=== PATIENT | male | born 1935 | race Caucasian/White ===

== ENCOUNTER 2019-10-23 00:09 | Inpatient (IN) | payer OTHER, SELFPAY ==
[2019-10-23] VITALS (12 sets, daily range): BP systolic 119–193; BP diastolic 57–94; PULSE 74–89; RESP 18–25; TEMP 36.6–36.9; O2SAT 80–97; BMI 38.5
--- NOTE | ~2019-10-23 | US_ITS ---
EXAMINATION: US right upper quadrant DATE: 10/23/2019 09:26 INDICATION: Epigastric abdominal pain. TECHNIQUE: Multiple grayscale and Doppler ultrasound images of the abdomen were obtained. COMPARISON: CT abdomen and pelvis 10/23/2019 FINDINGS: The pancreas is obscured by bowel gas. There is diffuse hepatic steatosis. There is normal flow in main portal vein. The gallbladder is distended and contains sludge. No definite shadowing to suggest gallstones. Gallbladder wall thickening is noted. There was no sonographic Corcoran sign. The c ommon duct is normal and measures 6 mm. IMPRESSION: 1. Gallbladder distention with sludge and gallbladder wall thickening. No definite gallstones or sono graphic Corcoran sign. These findings are indeterminate for acute cholecystitis. Consider hepatobiliary scintigraphy. 2. Diffuse hepatic steatosis. Reviewed, dictated and finalized at location A. IMPRESSION: 1. Gallbladder distention with sludge and gallbladder wall thickening. No defin ite gallstones or sonographic Corcoran sign. These findings are indeterminate for acute cholecystitis. Consider hepatobiliary scintigraphy. 2. Diffuse hepatic steatosis.
--- NOTE | ~2019-10-23 | XR_ITS ---
EXAMINATION: XR chest 1V portable DATE: 11/03/2019 06:06 INDICATION: Acute hypercapnic respiratory failure. TECHNIQUE: A single frontal view of the chest was obtained. COMPARISON: Chest single view 11/02/2019, chest CT 11/01/2019 FINDINGS: There are airspace opacities in the lower lung zones. There is a small right pleural effusi on. No pneumothorax. The heart size is normal. The endotracheal tube tip is 5.6 cm above the yasmani. The nasogastric tube tip is beyond the inferior margin of the radiograph, but at least to the stomach . A right internal jugular central venous catheter is seen with tip in the superior vena cava. A left internal jugular central venous catheter is seen with tip in the superior vena cava. IMPRESSION: 1. Airspace opacities in the lower lung zones with worsening on the right, consistent with atelectasi s versus pneumonia. 2. Stable small right pleural effusion. Reviewed, dictated and finalized at location A. IMPRESSION: 1. Airspace opacities in the lower lung zones with worsening on the right, cons istent with atelectasis versus pneumonia. 2. Stable small right pleural effusion.
--- NOTE | ~2019-10-23 | XR_ITS ---
EXAMINATION: XR chest 1V portable DATE: 10/27/2019 10:54 INDICATION: Shortness of breath TECHNIQUE: frontal view of the chest was obtained. COMPARISON: Chest radiograph dated 10/25/[address] dated 10/23/2019 FINDINGS: Small lung volumes with unchanged mild opacities in the bilateral lower lung zones and favor atelecta sis over pneumonia. No pleural effusion or pneumothorax. Heart size is normal with prominent paracard ial fat pads. Mediastinal lipomatosis. Severe left glenohumeral osteoarthritis. IMPRESSION: 1. Small lung volumes with unchanged bibasilar atelectasis. Reviewed, dictated and finalized at location A.
--- NOTE | ~2019-10-23 | XR_ITS ---
XR chest 1V portable 10/28/2019 11:17 Indication: Increased labrum breathing Procedure: AP portable chest Comparison: Comparison to multiple prior studies sequentially, with oldest reviewed study dated 10/2018. Findings: Patchy bilateral infiltrates. Borderline heart size. No pleural effusion or pneumothorax. N o acute osseous abnormality. Impression: 1: Patchy bilateral infiltrates, suspicious for pneumonia. Reviewed, dictated and finalized at location B. Impression: 1: Patchy bilateral infiltrates, suspicious for pneumonia.
--- NOTE | ~2019-10-23 | XR_ITS ---
EXAMINATION: XR chest 1V portable DATE: 11/02/2019 06:13 INDICATION: Acute hypercapnic respiratory failure. TECHNIQUE: A single frontal view of the chest was obtained. COMPARISON: Chest single view 11/01/2019, chest CT 11/01/2019 FINDINGS: There are airspace opacities in the paramediastinal upper lobes and in the lower lung zones . No pleural effusion or pneumothorax. The heart size is normal. There is a prominent left paracardia l fat pad. The endotracheal tube tip is 4.1 cm above the yasmani. A right internal jugular central sammie ous catheter is seen with tip in the superior vena cava. A left internal jugular central venous tena ter is seen with tip in the superior vena cava. The nasogastric tube tip is beyond the inferior lyly n of the radiograph, but at least to the stomach. IMPRESSION: 1. Stable airspace opacities in the paramediastinal upper lobes and in the lower lung zones, likely a telectasis. Reviewed, dictated and finalized at location A. IMPRESSION: 1. Stable airspace opacities in the paramediastinal upper lobes and in the lowe r lung zones, likely atelectasis.
--- NOTE | ~2019-10-23 | NM_ITS ---
EXAMINATION: NM hepatobiliary wo pharm DATE: 10/24/2019 14:37 INDICATION: Right upper quadrant abdominal pain. Indeterminate gallbladder ultrasound. COMPARISON: Ultrasound and CT studies dated 10/23/2019 TECHNIQUE: 4.8 mCi Tc-99m mebrofenin (Choletec) was administered intravenously. Scintigraphic images of the abdomen were obtained for one hour. At the 1 hour time point 2 mg of morphine was injected IV and imaging continued for an additional 30 minutes. FINDINGS: There is normal clearance of radiotracer from the blood pool. There is homogeneous tracer u ptake by the liver. Activity progresses to the small bowel within 30 minutes. There is progressive a ccumulation of activity extending through multiple loops of small bowel 30 minutes following morphine administration with no evident activity within the region of the gallbladder fossa where there is a photopenic defect appears to correspond in size and location to the gallbladder on prior CT. IMPRESSION: 1. No evident activity in the gallbladder through 90 minutes of observation, including 30 minutes fo llowing morphine administration which would be consistent with acute cholecystitis. Reviewed, dictated and finalized at location A. IMPRESSION: 1. No evident activity in the gallbladder through 90 minutes of observation, i ncluding 30 minutes following morphine administration which would be consistent with acute cholecystitis.
--- NOTE | ~2019-10-23 | XR_ITS ---
EXAMINATION: XR pelvis 1-2V INDICATION: Right femoral dialysis catheter insertion TECHNIQUE: AP view the pelvis is obtained. COMPARISON: CT, 10/23/2019 FINDINGS: Sensitivity is limited by patient's body habitus. A right femoral dialysis catheter project s in expected location. The soft tissues are unremarkable. Lumbar spondylosis is noted. IMPRESSION: 1. Right femoral dialysis catheter projecting in expected position. Reviewed, dictated and finalized at location A.
--- NOTE | ~2019-10-23 | XR_ITS ---
EXAMINATION: XR chest port-a-cath/central INDICATION: Dialysis catheter insertion TECHNIQUE: Portable AP chest at 1639 hours COMPARISON: 1229 hours FINDINGS: The endotracheal tube ends approximately 1.9 cm above the yasmani. The nasogastric tube is f ollowed as far as the stomach. Its tip is beyond the inferior margin of the radiograph. A right inter nal jugular central venous catheter ends with its tip in the superior vena cava. There has been inter sarah insertion of a left internal jugular dialysis catheter which ends with its tip in the proximal marino perior vena cava. There is no pneumothorax. Small pleural effusions are present. There is new airspac e opacity in the left lung base and right perihilar region. The heart size is normal. IMPRESSION: 1. Left internal jugular dialysis catheter insertion ending with its tip in the proximal superior sammie a cava. No pneumothorax. 2. New left basilar and right perihilar airspace opacities, likely atelectasis. 3. Small pleural effusions. Reviewed, dictated and finalized at location A. IMPRESSION: 1. Left internal jugular dialysis catheter insertion ending with its tip in the proximal superior vena cava. No pneumothorax. 2. New left basilar and right perihilar airspace opacities, likely atelectasis. 3. Small pleural effusions.
--- NOTE | ~2019-10-23 | CT_ITS ---
EXAMINATION: CT abdomen pelvis w con DATE: 10/23/2019 01:11 INDICATION: Epigastric abdominal pain. Nausea. TECHNIQUE: Computed tomography (CT) of the abdomen and pelvis was performed with 100 mL Omnipaque 350 intravenous contrast. Automated exposure control and iterative reconstruction technique were employe d. The dose-length product was 1667.51 mGy-cm. COMPARISON: Chest CT 06/17/2015 FINDINGS: The visualized portions of the lung bases demonstrate mild atelectasis. No pleural effusion . The heart size is normal. There are coronary artery calcifications. No pericardial effusion. There is an 11 mm cyst in the liver. The gallbladder is distended. The spleen is normal. There is a 12 mm c ystic lesion in the body of the pancreas, likely benign. The adrenal glands and kidneys are normal. T here is an umbilical hernia containing fat. There are bilateral inguinal hernias containing fat. Ther e is diverticulosis of the colon without evidence of diverticulitis. There are no dilated loops of niko wel. The appendix is normal. There are no pathologically enlarged lymph nodes. There is no free intra peritoneal fluid. There is moderate lumbar spondylosis. IMPRESSION: 1. Gallbladder distention, which may be secondary to fasting. Correlate with physical exam to exclude acute cholecystitis. 2. Umbilical hernia and bilateral inguinal hernias containing fat. Reviewed, dictated and finalized at location A. IMPRESSION: 1. Gallbladder distention, which may be secondary to fasting. Correlate with ph ysical exam to exclude acute cholecystitis. 2. Umbilical hernia and bilateral inguinal hernias containing fat.
--- NOTE | ~2019-10-23 | US_ITS ---
EXAMINATION: US renal BI DATE: 10/26/2019 17:00 INDICATION: Acute kidney injury. TECHNIQUE: Multiple ultrasound grayscale images of the kidneys were obtained. COMPARISON: CT abdomen and pelvis 10/23/2019 FINDINGS: The right kidney measures 11.7 x 4.2 x 5.5 cm. The left kidney measures 11.6 x 4.5 x 6.4 cm. The kidn eys demonstrate normal parenchymal echogenicity. There is no hydronephrosis. The bladder is is decomp ressed by a Mello catheter. IMPRESSION: 1. Normal kidney sizes. No hydronephrosis. Reviewed, dictated and finalized at location A.
--- NOTE | ~2019-10-23 | XR_ITS ---
EXAMINATION: XR chest 1V portable DATE: 10/25/2019 15:54 INDICATION: Hypoxia. TECHNIQUE: A single frontal view of the chest was obtained. COMPARISON: Chest 2 views 10/23/2019, chest CT 10/23/2019 FINDINGS: There is mild atelectasis in the lower lung zones. No pleural effusion or pneumothorax. The heart size is normal. There are prominent paracardial fat pads. IMPRESSION: 1. Mild atelectasis in the lower lung zones. Reviewed, dictated and finalized at location A.
--- NOTE | ~2019-10-23 | XR_ITS ---
EXAMINATION: XR chest ET placement DATE: 10/31/2019 00:35 INDICATION: Intubation. Central line placement. TECHNIQUE: A single frontal view of the chest was obtained. COMPARISON: Chest single view 10/30/2019, chest CT 10/23/2019 FINDINGS: There are mild airspace opacities in right mid and lower lung zones and left lower lung zon e. No pleural effusion or pneumothorax. The heart size is normal. The endotracheal tube tip is 1.7 cm above the yasmani. A right internal jugular central venous catheter is seen with tip in the superior vena cava. The nasogastric tube tip is beyond the inferior margin of the radiograph, but at least to the stomach. IMPRESSION: 1. Mild airspace opacities in right mid and lower lung zones and left lower lung zone, consistent wit h atelectasis versus pneumonia. Reviewed, dictated and finalized at location A. IMPRESSION: 1. Mild airspace opacities in right mid and lower lung zones and left lower delgado g zone, consistent with atelectasis versus pneumonia.
--- NOTE | ~2019-10-23 | US_ITS ---
EXAMINATION:US venous doppler LE BI INDICATION:Lower extremity swelling. TECHNIQUE: Multiple grayscale, color flow and Doppler images of the bilateral lower extremity deep ve nous systems were obtained and reviewed. COMPARISON:07/01/2008 FINDINGS: The common femoral, superficial femoral and popliteal veins demonstrate normal respiratory variation, augmentation and compressibility. Color flow is also seen within the posterior tibial, pe roneal, greater saphenous and profunda veins. IMPRESSION: 1: No lower extremity deep venous thrombosis. Reviewed, dictated and finalized at location A.
--- NOTE | ~2019-10-23 | XR_ITS ---
XR chest 1V portable DATE: 11/05/2019 06:14 INDICATION: Acute hypercapnic respiratory failure TECHNIQUE: Portable AP chest on 11/05/2019 at 0540 hours COMPARISON: 11/04/2019 portable AP chest at 0527 hours FINDINGS: ET tube is approximately 5 cm above yasmani in satisfactory position. Washburn range is 2-5 cm. There is a nasogastric tube in the stomach. Dual lumen left internal jugular central venous catheter overlies superior vena cava. Right internal jugular central venous catheter overlies superior vena cava. No evidence of pneumothorax. There are bilateral lower lung infiltrates and/atelectasis, greater on the left, stable since 11/04/19 20. Heart size appears within normal range. There is aortic arch calcification. Diffuse osteopenia. Osteoarthritic change is noted at the left glenoid humeral joint. There is degene rative spurring of the thoracic spine. IMPRESSION: Bilateral lower lung infiltrate and/atelectasis, left greater than right, stable since Bilateral internal jugular central venous catheters in the superior vena cava ET and NG tubes in satisfactory position Reviewed, dictated and finalized at location A. IMPRESSION: Bilateral lower lung infiltrate and/atelectasis, left greater than right, stable since 11/04/2019 Bilateral internal jugular central venous catheters in the superior vena cava ET and NG tubes in satisfactory position
--- NOTE | ~2019-10-23 | XR_ITS ---
EXAMINATION: XR chest 1V portable DATE: 11/01/2019 06:18 INDICATION: Acute hypercapnic respiratory failure. TECHNIQUE: A single frontal view of the chest was obtained. COMPARISON: Chest single view 10/31/2019, 10/23/2019 FINDINGS: The patient is rotated to his left. Lung volumes are small. There are airspace opacities in the perihilar regions and at left lung base. No pleural effusion or pneumothorax. The heart size is normal. There is a prominent left paracardial fat pad. The endotracheal tube tip is 7 mm above the ca doreen. The nasogastric tube tip is in the stomach. A left internal jugular central venous catheter is seen with tip in the superior vena cava. A right internal jugular central venous catheter is seen wit h tip in the superior vena cava. IMPRESSION: 1. Small lung volumes with airspace opacities in the perihilar regions and at left lung base with wor sening on the left, consistent with atelectasis versus pneumonia. 2. Endotracheal tube tip 7 mm above the yasmani. Retraction 2 cm is recommended. Reviewed, dictated and finalized at location A. IMPRESSION: 1. Small lung volumes with airspace opacities in the perihilar regions and at l eft lung base with worsening on the left, consistent with atelectasis versus pn eumonia. 2. Endotracheal tube tip 7 mm above the yasmani. Retraction 2 cm is recommended.
--- NOTE | ~2019-10-23 | XR_ITS ---
EXAMINATION: XR chest 2V DATE: 10/23/2019 00:55 INDICATION: Midsternal chest pain. Shortness of breath on exertion. TECHNIQUE: Frontal and lateral views of the chest were obtained. COMPARISON: Chest single view 01/17/2019, CT abdomen and pelvis 10/23/2019 FINDINGS: There is mild atelectasis in left lower lung zone. No pleural effusion or pneumothorax. The heart size is normal. IMPRESSION: 1. Mild atelectasis in left lower lung zone. Reviewed, dictated and finalized at location A.
--- NOTE | ~2019-10-23 | XR_ITS ---
XR chest port-a-cath/central DATE: 11/05/2019 13:08 INDICATION: Dialysis access right internal jugular vein. Acute hypercapnic respiratory failure TECHNIQUE: Portable AP chest on 11/05/2019 at 1302 hours COMPARISON: 11/05/2019 portable AP chest at 0540 hours FINDINGS: There is a dual lumen right internal jugular central venous catheter, the catheter tip over lying the right brachiocephalic vein. No right pneumothorax is evident. Left internal jugular dual-lumen catheter tip overlying the superior vena cava. No left pneumothorax is evident. There are bibasilar infiltrates and/atelectasis, left greater than right. Heart size appears within normal range. No pulmonary vascular congestion is evident. Osteoarthritic changes at the glenohumeral joints, particularly severe on the left. Diffuse osteopenia. IMPRESSION: Bilateral internal jugular central venous catheters, the right catheter tip overlying the right brachiocephalic vein, the left catheter tip overlying the superior vena cava ET and NG tubes appear in satisfactory position Bibasilar infiltrate and/atelectasis, left greater than right Reviewed, dictated and finalized at Location A. Reviewed, dictated and finalized at location A. IMPRESSION: Bilateral internal jugular central venous catheters, the right cath eter tip overlying the right brachiocephalic vein, the left catheter tip overly ing the superior vena cava ET and NG tubes appear in satisfactory position Bibasilar infiltrate and/atelectasis, left greater than right
--- NOTE | ~2019-10-23 | XR_ITS ---
EXAMINATION: XR chest 1V portable EXAM DATE: 11/06/2019 23:38 INDICATION: Injury getting oxygen demands. TECHNIQUE: Portable AP frontal chest x-ray was obtained. Comparison is made to prior examination from 11/05/2019. FINDINGS: Endotracheal tube tip is about 5 centimeters above the yasmani (ideal range is between 2 to 5 cm). There is a right IJ venous line. There is a nasogastric tube seen with tip collimated off the study, but below the left hemidiaphragm. There is patchy left perihilar, right infrahilar airspace disease which is nonspecific, atelectasis a nd/or pneumonia. There are no sizable pleural effusions. There is no pneumothorax suspected. Car diomediastinal silhouette is normal. 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 Compared to prior study, mild progression in the airspace disease is suspected. IMPRESSION: 1. Line(s) and tube(s) in position. 2. Moderate patchy left perihilar, mild right infrahilar atelectasis and/or pneumonia. Reviewed, dictated and finalized at location A. IMPRESSION: 1. Line(s) and tube(s) in position. 2. Moderate patchy left perihilar, mild right infrahilar atelectasis and/or pn eumonia.
--- NOTE | ~2019-10-23 | XR_ITS ---
EXAMINATION: XR abdomen NG/feed tube insert DATE: 10/31/2019 00:35 INDICATION: Nasogastric tube placement. TECHNIQUE: A supine view of the abdomen was obtained. COMPARISON: CT abdomen and pelvis 10/23/2019 FINDINGS: The lower abdomen and right lateral aspect of the abdomen are excluded. There are surgical clips in right upper quadrant. The nasogastric tube tip is in the stomach. The proximal side port is in the distal esophagus. IMPRESSION: 1. Nasogastric tube tip in the stomach with proximal side port in the distal esophagus. Advancement 7 cm is recommended. Reviewed, dictated and finalized at location A. IMPRESSION: 1. Nasogastric tube tip in the stomach with proximal side port in the distal es ophagus. Advancement 7 cm is recommended.
--- NOTE | ~2019-10-23 | US_ITS ---
EXAMINATION: US venous doppler UE EXAM DATE: 11/03/2019 09:19 INDICATION: Arm swelling. TECHNIQUE: Multiple grayscale, color flow, Doppler sonographic images of the left upper extremity vei ns obtained by technologist. Compression was performed where able. There is no prior study for helena hendricks. FINDINGS: Some limitations in evaluating neck from bandage overlying patient's port. Left upper extremity: Jugular vein: ------------> Normal. Subclavian vein: --------> Normal. Axillary vein:------------> Normal. Brachial vein:-----------> Normal. Basilic vein: ------------> Normal. Cephalic vein: ----------> Normal. Radial vein: ------------> Normal. Ulnar vein: > Normal. IMPRESSION: No deep venous thrombosis of the left upper extremity. Reviewed, dictated and finalized at location A.
--- NOTE | ~2019-10-23 | CT_ITS ---
EXAMINATION: CTA chest PE protocol DATE: 10/23/2019 09:11 INDICATION: Chest pain. TECHNIQUE: Computed tomography angiography (CTA) of the chest was performed with 100 mL Omnipaque-350 intravenous contrast timed to evaluate the pulmonary arteries. Coronal maximum intensity projection 3D-reconstructions were created by the technologist. Automated exposure control and iterative reconst ruction technique were employed. The dose-length product was 969.44 mGy-cm. COMPARISON: Chest CT 06/17/2015 FINDINGS: The lungs demonstrate mild atelectasis. No pleural effusion. The heart size is normal. Ther e are coronary artery calcifications. No pericardial effusion. There is no pulmonary embolus. There i s mild thoracic spondylosis. IMPRESSION: 1. No pulmonary embolus. Sensitivity is mildly decreased by motion artifact. Reviewed, dictated and finalized at location A.
--- NOTE | ~2019-10-23 | XR_ITS ---
XR abdomen/kub 1V DATE: 10/27/2019 10:54 INDICATION: Abdominal distention TECHNIQUE: Portable supine AP views on 10/27/2019 at 1047 and 1048 hours COMPARISON: 10/23/2019 CT abdomen pelvis FINDINGS: Double density from large fat-containing umbilical hernia overlies the lower abdomen right of midline. Nonspecific bowel gas pattern, without apparent obstruction. Nondilated gas containing mid small vicente l segments may be due to mild adynamic ileus. No obvious intraperitoneal free air. Surgical clips overlie the right upper quadrant, a new finding since 10/23/2019, consistent with gini cystectomy. IMPRESSION: Recent cholecystectomy with probable mild postoperative adynamic ileus Reviewed, dictated and finalized at Location A. Reviewed, dictated and finalized at location A. IMPRESSION: Recent cholecystectomy with probable mild postoperative adynamic il eus
--- NOTE | ~2019-10-23 | XR_ITS ---
EXAMINATION: XR chest 1V portable INDICATION: Shortness of breath TECHNIQUE: Portable AP chest at 0548 hours COMPARISON: 10/28/2019 FINDINGS: Bibasilar atelectasis persists without significant change. There is no pleural effusion or pneumothorax. The cardiomediastinal silhouette is stable. Severe left glenohumeral joint osteoarthrit is is noted. IMPRESSION: 1. Mild atelectasis of the lung bases. Reviewed, dictated and finalized at location A.
--- NOTE | ~2019-10-23 | XR_ITS ---
EXAMINATION: XR chest 1V portable DATE: 11/04/2019 06:13 INDICATION: Acute hypercapnic respiratory failure. TECHNIQUE: A single frontal view of the chest was obtained on 2 radiographs. COMPARISON: Chest single view 11/03/2019 FINDINGS: There are airspace opacities in the perihilar lower lung zones. No pleural effusion or pneu mothorax. The heart size is normal. The endotracheal tube tip is 4.3 cm above the yasmani. The nasogas tric tube tip is in the stomach. A right internal jugular central venous catheter is seen with tip in the superior vena cava. A left internal jugular central venous catheter is seen with tip in the supe rior vena cava. IMPRESSION: 1. Stable airspace opacities in the lower lung zones, consistent with atelectasis versus pneumonia. Reviewed, dictated and finalized at location A. IMPRESSION: 1. Stable airspace opacities in the lower lung zones, consistent with atelectas is versus pneumonia.
--- NOTE | ~2019-10-23 | CT_ITS ---
EXAMINATION: CTA chest PE protocol EXAM DATE: 11/01/2019 09:48 INDICATION: Acute respiratory failure, hypoxia. TECHNIQUE: Spiral CTA of the chest (pulmonary arteries) was performed with 100 cc Omnipaque 350 intr avenous contrast injection. Images were acquired during the pulmonary arterial phase. Coronal maxi mum intensity projection 3D-reconstructions were created by the technologist on dedicated workstation . Axial, coronal and sagittal reformatted images were reviewed. The dose-length product (DLP) for t his examination was 980.02 mGy-cm. The exposure was tailored according to patient size (auto mA exp osure control), and iterative reconstruction (ASIR) was used as additional dose reduction technique. There is no prior study for comparison. FINDINGS: Endotracheal tube and feeding tube are in position. There is a left-sided subclavian venous catheter and right IJ venous line also in position. There are no pulmonary emboli in the 1st through 3rd order (central and interlobar) pulmonary arteries. Some loss of attenuation in the segmental pu lmonary arteries due to respiratory motion, but no intraluminal filling defects suspected. No thora cic aortic dissection. There is multi segmental bilateral lower lobe atelectasis, scattered bilateral upper lobe subsegmenta l atelectasis. Collapsed portions of lungs have relatively homogeneous enhancement, but difficult to exclude superimposed infection in the lower lobes. There are no pleural or pericardial effusions. Tracheobronchial tree is patent. There is no mediastinal, hilar or axillary lymphadenopathy. Ther e is no pneumothorax. Heart is upper limits of normal in size. There is mild coronary arterial geronimo cification, arterial sclerosis. Surgical clips in the gallbladder fossa, patient has likely had recent cholecystectomy with small pos toperative hematoma/seroma in the gallbladder fossa. Upper abdomen is otherwise unremarkable. Ther e is thoracic spondylosis without osteoblastic or osteolytic lesions identified. IMPRESSION: 1. Limited segmental evaluation, but no pulmonary emboli are suspected. 2. Multisegmental lower lobe, subsegmental upper lobe atelectasis. Difficult to exclude superimposed infection. 3. Gallbladder fossa clips, changes consistent with recent cholecystectomy. 4. Tubes, lines in position. Reviewed, dictated and finalized at location A. IMPRESSION: 1. Limited segmental evaluation, but no pulmonary emboli are suspected. 2. Multisegmental lower lobe, subsegmental upper lobe atelectasis. Difficult t o exclude superimposed infection. 3. Gallbladder fossa clips, changes consistent with recent cholecystectomy. 4. Tubes, lines in position.
--- NOTE | 2019-10-23 00:20 | PC.NURSE ---
Patient states his PMD has recently taken off one of his medications but is unsure which one.
--- NOTE | 2019-10-23 00:21 | ECG_ITS ---
Measurements Intervals [place] Rate: 85 P: 10 LA: 192 QRS: -5 QRSD: 94 T: 41 QT: 352 QTc: 419 Interpretive Statements SINUS RHYTHM FREQUENT VENTRICULAR PREMATURE COMPLEXES EARLY PRECORDIAL R/S TRANSITION BASELINE WANDER- I, II, III ABNORMAL ECG Electronically Signed On 10-23-2019 8:03:57 CDT by Cliff Handy D.O.
[2019-10-23 00:34] LABS: Basophils Absolute Auto 0.1 K/mm3 (0.0-0.1); Basophils Percent Auto 0.4 % (0.2-1.2); Eosinophils Absolute Auto 0.1 K/mm3 (0-0.3); Eosinophils Percent Auto 0.5 % (0-4.4); Hematocrit 40.6 % (42.0-52.0); Hemoglobin 13.2 g/dL (14.0-18.0); Immature Granulocyte Absolute 0.08 K/mm3 (0.00-0.031); Immature Granulocyte Percent A 0.6 % (0-0.5); Lymphocytes Absolute Auto 1.73 K/mm3 (0.9-3.2); Lymphocytes Percent Auto 13.2 % (18.3-44.2); Mean Corpuscular HGB Conc 32.5 g/dl (32-36); Mean Corpuscular Hemoglobin 31.1 pg (26-34); Mean Corpuscular Volume 95.5 fl (80-100); Mean Platelet Volume 11.4 fl (7.4-10.4); Monocytes Absolute Auto 0.9 K/mm3 (0.1-0.6); Monocytes Percent Auto 6.9 % (2.6-8.5); Neutrophils Absolute Auto 10.2 K/mm3 (1.3-6.7); Neutrophils Percent Auto 78.4 % (45.5-73.1); Platelet Count Result 197 k/mm3 (150-375); Red Blood Count 4.25 M/mm3 (4.6-6.20); Red Cell Distribution Width 13.1 % (11.5-14.5); White Blood Count 13.1 K/mm3 (4.5-10.0)
[2019-10-23 00:46] LABS: INR 0.9; Prothrombin Time 12.1 Seconds (11.1-14.7)
[2019-10-23 00:47] LABS: Partial Thromboplastin Time 24.9 SECONDS (22.3-36.8)
--- NOTE | 2019-10-23 00:48 | ED.CHESTPAIN ---
HPI - Chest Pain General Chief Complaint: Chest Pain Stated Complaint: cp Time Seen by Provider: 10/23/19 00:13 History of Present Illness HPI narrative: Patient presents with his for epigastric pain that started last evening while watching TV. He points just beneath his rib cage, and gives the pain is 7 out of 10. He tried to Pepcid for that did not help. He has had similar pain and Pepcid is worked before. He said he had sweats when he had the pain, sometimes he has chills. He has had no fever. He does not have any cough. He had nausea with the pain and still does. His said that he frequently gets short of breath particularly with any exertion. Is a history of hypertension and diabetes. He does not smoke cigarettes, drink alcohol,, or do drugs. MD complaint: chest pain Onset (ago): hour(s) Timing of current episode: constant Prior episodes: Yes Onset: during rest Pain location: epigastric Pain radiation: none Severity: moderate Related Data Home Medications Medication Instructions Recorded Confirmed amlodipine 5 mg tablet 5 mg PO DAILY 03/31/19 10/13/19 aspirin 81 mg tablet,delayed 81 mg PO DAILY 03/31/19 10/13/19 release cholecalciferol (vitamin D3) 50 2,000 unit PO DAILY 03/31/19 10/13/19 mcg (2,000 unit) tablet Allergies Allergy/AdvReac Type Severity Reaction Status Date / Time No Known Allergies Allergy Unknown Verified 10/13/19 14:58 Review of Systems Review of Systems: Narrative: CONSTITUTIONAL: Denies fever, but has had chills, and sweats. EYES: Denies visual changes, redness, or discharge. ENT: Denies rhinorrhea, congestion, sore throat, or otalgia. CARDIOVASCULAR: He has epigastric chest pain, but not palpitations, or edema. RESPIRATORY: Denies cough or dyspnea. GASTROINTESTINAL: He has epigastric abdominal pain, nausea, but not vomiting, or diarrhea. GENITOURINARY: Denies dysuria or hematuria. SKIN: Denies rash or itching. MUSCULOSKELETAL: Denies back pain, joint pain, or myalgia. NEUROLOGIC: Denies headache, numbness, or weakness. PSYCHIATRIC: Denies anxiety or depression. 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 Edema of both legs Essential (primary) hypertension Hyperlipidemia LDL goal <70 Medication monitoring encounter Overweight (10/06/16) Personal history of nicotine dependence Psoriasis 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resence of left artificial knee joint Social History Social History Smoking status: Former smoker Smoking end date: 04/13/1963 Alcohol intake: never Exam Narrative: Exam Narrative: GENERAL: Well-appearing, well-nourished, and in no acute distress. Morbid obesity. HEAD: Normocephalic, atraumatic. EYES: PERRLA and EOMI. ENT: Nares clear, no rhinorrhea or epistaxis. Mucous membranes moist. NECK: Supple. CHEST: Clear to auscultation. No respiratory distress. HEART: Regular rate and rhythm. No murmur heard. Normal peripheral pulses. ABDOMEN: Soft, nontender, nondistended, normal active bowel sounds. EXTREMITIES: Normal range of motion. Slight edema. SKIN: Warm, dry, no rash. NEURO: No focal deficits. Alert and oriented x3. PSYCH: Normal mood and affect. Course Reevaluation(s) Reevaluation #1: Went in to tell the patient and his ab
[2019-10-23 00:53] LABS: Blood Urea Nitrogen 30 mg/dL (9-20); Calcium 9.2 mg/dL (8.4-10.2); Carbon Dioxide 28 mmol/L (22-30); Chloride 92 mmol/L (98-107); Estimated CRCL calculation 54 ml/min; Estimated Glomerular Filt Rate 58; Glucose 202 mg/dL (75-110); Potassium 4.8 mmol/L (3.4-5.0); Sodium 129 mmol/L (137-145)
[2019-10-23 01:04] LABS: Lipase 113 U/L (23-300); Troponin I < 0.012 ng/mL (0.000-0.034)
[2019-10-23] MEDS: SODIUM CHLORIDE 0.9% IV 100 ML 500 ML (01:12)
[2019-10-23] MEDS: METOCLOPRAMIDE HCL INJ 10 MG/2 ML VIAL IV PUSH (01:12)
[2019-10-23] MEDS: MORPHINE SULFATE 2 MG/ML INJ IV PUSH (01:12)
--- NOTE | 2019-10-23 01:59 | PC.NURSE ---
Patient stood at bedside to urinate, upon returning to bed patient noted to be grunting while breathing. Patient's O2 80%, placed on 2L, and MD aware. Patient reports he has had this issue for months and has not been seen by his PMD for it. Patient immediately recovered to 93%.
[2019-10-23] MEDS: MORPHINE SULFATE 4 MG/ML INJ IV PUSH (02:38)
[2019-10-23] MEDS: BELLADONNA ALK/PHENOB ELIX 10 ML, MAG HYDROX/ALUMINUM HYD/SIMETH 30 ML, LIDOCAINE HCL 2... PO (03:21)
--- NOTE | 2019-10-23 04:55 | ADMGEN ---
This patient, Braulio Castaneda, was admitted to [facility] Room 307-01. Patient/family oriented to hospital policies and general routines including ID bracelet, bed and alarms, visiting hours, pain management, procedures, bathroom and other care routines, personal items, smoking policy, room service/diet, and visiting hours. Valuables list has been completed. Information on how to activate the Rapid Response Team has been discussed. Patient/Family are encouraged to report perceived risks to care and to ask questions if they do not understand what they are told or what they should do.
--- NOTE | 2019-10-23 06:14 | PC.NURSE ---
Attempted to get ahold of at number listed by registration as patient does not know number. Left message to call back for med rec.
--- NOTE | 2019-10-23 07:44 | PM.IMHP ---
H&P: HPI History of Present Illness Chief complaint: epigastric pain, rule out gallstones, and hypoxia Narrative: Braulio Castaneda is a 84 year old male who presented emergency room for epigastric pain that radiated to his right upper quadrant starting last evening an hour after eating a sausage sandwich. He states this pain was like a burning and aching pain that was intermittent. He said moving made a little better and belching did as well. He does not think he has ever had this before but maybe once 30 years ago. He has never had an ulcer or an EGD. He denies black stools, nausea, vomiting, diarrhea, lightheadedness or dizziness. The time of his extreme pain was rated a 7/10 and now his pain is better at a 1/10. He has not tried to eat anything. During this time he had cold sweats/chills but thinks it was anxiety as he has not had any since. On another note, he also has complaints of dyspnea on exertion. He said it started earlier this year and has stayed pretty consistent. It is not worse today or in the last few days. He says he rides a stationary bike for 15-30 minutes occasionally and this has not prevented him from doing that. He has no chest pain associated with this. When asked about his pitting edema, he says that is been there for a couple months. He does have a cough but was better after getting off his lisinopril. He is a former smoker but quit 57 years ago. He sees a weekend caregiver and saw them a few months ago. He cannot remember the name but knows it is in [facility]. He is unsure when his last echo or stress test was. His catheterization was 20 years ago. He has not had any recent antibiotics and he did have some steroids recently but was because of a swollen wrist. He denies chest pain, fevers, and has been socially distancing. When he goes out he wears the mask. He has not been around anyone who is sick. He states he is Sure that he has sleep apnea but does not want to get tested because he does not have the money to do so. I told him that he needs to speak with his primary care physician to see what his options are and that this can damaged his lungs and heart. He understands. He is not nauseated or vomiting and is ready to start clear liquids. Review of Systems Review of Systems: 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 Edema of both legs Essential (primary) hypertension Hyperlipidemia LDL goal <70 Medication monitoring encounter Overweight (10/06/16) Personal history of nicotine dependence Psoriasis 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resence of left artificial knee joint Family History Family History Sibling Patient's brother is in good health Patient's sister is Father Family history of heart disease in male family member before age 55 Patient's father is Mother Family history of heart disease in male family member before age 55 Other Diabetes mellitus Social History Social History (Updated 10/23/19 @ 10:33 by Betzy Fitzgerald PA-C) Social History: Patient no longer smokes and quit 57 years ago. He does not do drugs or alcohol. 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 He lives at home with his Elizabeth. He has a
[2019-10-23 08:28] LABS: Glucose Point of Care 177 (65-105)
[2019-10-23 08:52] LABS: NT Pro B Type Natriuretic Pept 217 PG/ML (5-100); Troponin I < 0.012 ng/mL (0.000-0.034)
[2019-10-23 08:56] LABS: Alanine Aminotransferase 23 U/L (4-50); Albumin Level 4.3 g/dL (3.5-5.1); Alkaline Phosphatase 89 U/L (38-126); Aspartate Amino Transferase 21 U/L (17-59); Bilirubin,Total 0.7 mg/dL (0.2-1.3); Blood Urea Nitrogen 27 mg/dL (9-20); Carbon Dioxide 27 mmol/L (22-30); Chloride 91 mmol/L (98-107); Estimated CRCL calculation 54 ml/min; Estimated Glomerular Filt Rate 58; Glucose 178 mg/dL (75-110); Magnesium 1.3 mg/dL (1.6-2.3); Phosphorus 3.7 mg/dL (2.5-4.5); Potassium 4.8 mmol/L (3.4-5.0); Sodium 129 mmol/L (137-145)
[2019-10-23] MEDS: PANTOPRAZOLE 40 MG TABLET PO (12:08)
[2019-10-23] MEDS: FUROSEMIDE INJ 40 MG/4 ML VIAL IV PUSH (12:09)
[2019-10-23] MEDS: MAGNESIUM SULFATE 3GM/D5W100ML 3 GM/100 ML BAG IVPB (12:40)
[2019-10-23] MEDS: INSULIN ASPART (*BKC) 100 UNITS/ML SUB-Q (12:44)
[2019-10-23 12:45] LABS: Glucose Point of Care 218 (65-105)
[2019-10-23 17:38] LABS: Glucose Point of Care 186 (65-105)
[2019-10-23 21:10] LABS: Glucose Point of Care 245 (65-105)
--- NOTE | 2019-10-24 | ECHO_ITS ---
Patient Info Name: Braulio Castaneda Age: 84 years : 1935 Gender: Male Ht: 70 in Wt: 260 lbs BSA: 2.46 m2 HR: 87 bpm BP: 158 / 67 mmHg Heart Rhythm: Sinus Rhythm Technical Quality: Good Exam Date: 10/24/2019 11:03 AM Exam Location: [facility] Patient Status: Inpatient Admit Date: 10/23/2019 Staff Ordering Physician: Betzy Fitzgerald PA-C Hand Inspector: Marvin Corcoran, DEBBIE, RT Attending Provider: Betzy Fitzgerald PA-C Referring Physician: Amilcar LOPEZ; Exam Type: CA echo doppler color flow Study Info Indications R06.00 - Dyspnea, unspecified Complete two-dimensional, color flow and Doppler transthoracic echocardiogram is performed. Summary 1. Left ventricular chamber dimension is normal. 2. Left ventricular systolic function is normal, estimated at 65-70%. 3. The left ventricular diastolic function is grade I diastolic dysfunction. 4. There is mild aortic valve sclerosis. 5. There is trace mitral valve regurgitation. Left Ventricle Left ventricular chamber dimension is normal. Left ventricular systolic function is normal, estimated at 65-70%. The left ventricular diastolic function is grade I diastolic dysfunction. Right Ventricle Right ventricular chamber dimension is normal. Left Atria Left atrial chamber dimension is normal. Right Atria Right atrial chamber dimension is normal. Aortic Valve The aortic valve is trileaflet. There is mild aortic valve sclerosis. Pulmonic Valve The pulmonic valve is not well visualized. Mitral Valve The mitral valve has normal leaflets. There is trace mitral valve regurgitation. Tricuspid Valve The tricuspid valve leaflets are normal. There is trace tricuspid valve regurgitation. Pericardium/Pleural The pericardium appears normal. Aorta The aortic root size at the sinus of Valsalva is normal. Left Ventricular Outflow Tract Name Value Normal LVOT 2D LVOT Diameter 2.3 cm LVOT Doppler LVOT Peak Gradient 4 mmHg LVOT Mean Gradient 2 mmHg LVOT VTI 24 cm LVOT VTI/AV VTI Ratio 0.7 LVOT Stroke Volume 96 ml LVOT CO 5.6 l/min LVOT CI 2.3 l/min/m2 Mitral Valve Name Value Normal MV Doppler MV Decel Sabine 182 cm/s2 MV PHT 84 ms MV Area (PHT) 2.6 cm2 4.0-5.0 MV Diastolic Function MV E Peak Velocity 53 cm/s MV A Peak Velocity 65 cm/s MV E/A 0.8 MV Decel Time 290 ms Aort
[2019-10-24 06:00] VITALS: BP 158/67; PULSE 83; RESP 18; TEMP 36.5; O2SAT 90
[2019-10-24 06:14] LABS: Basophils Absolute Auto 0.1 K/mm3 (0.0-0.1); Basophils Percent Auto 0.2 % (0.2-1.2); Hematocrit 37.8 % (42.0-52.0); Hemoglobin 12.7 g/dL (14.0-18.0); Immature Granulocyte Absolute 0.18 K/mm3 (0.00-0.031); Immature Granulocyte Percent A 0.8 % (0-0.5); Lymphocytes Absolute Auto 0.64 K/mm3 (0.9-3.2); Mean Corpuscular HGB Conc 33.6 g/dl (32-36); Mean Corpuscular Hemoglobin 31.1 pg (26-34); Mean Corpuscular Volume 92.6 fl (80-100); Mean Platelet Volume 11.7 fl (7.4-10.4); Monocytes Absolute Auto 1.2 K/mm3 (0.1-0.6); Monocytes Percent Auto 5.6 % (2.6-8.5); Neutrophils Absolute Auto 19.4 K/mm3 (1.3-6.7); Neutrophils Percent Auto 90.4 % (45.5-73.1); Platelet Count Result 184 k/mm3 (150-375); Red Blood Count 4.08 M/mm3 (4.6-6.20); White Blood Count 21.4 K/mm3 (4.5-10.0)
[2019-10-24 06:27] LABS: Alanine Aminotransferase 17 U/L (4-50); Alkaline Phosphatase 75 U/L (38-126); Aspartate Amino Transferase 21 U/L (17-59); Bilirubin,Total 1.8 mg/dL (0.2-1.3); Blood Urea Nitrogen 33 mg/dL (9-20); Calcium 8.8 mg/dL (8.4-10.2); Carbon Dioxide 29 mmol/L (22-30); Chloride 87 mmol/L (98-107); Estimated CRCL calculation 41 ml/min; Estimated Glomerular Filt Rate 41; Glucose 215 mg/dL (75-110); Magnesium 1.7 mg/dL (1.6-2.3); Potassium 4.1 mmol/L (3.4-5.0); Sodium 125 mmol/L (137-145)
[2019-10-24] MEDS: PANTOPRAZOLE 40 MG TABLET PO (07:39)
[2019-10-24] MEDS: ASPIRIN 81 MG ENTERIC TABLET PO (07:40)
[2019-10-24] MEDS: allopurinoL 100 MG TABLET PO (07:40)
[2019-10-24] MEDS: ATORVASTATIN 40 MG TABLET PO (07:40)
[2019-10-24] MEDS: CANDESARTAN CILEXETIL 16 MG TABLET 32 MG PO (07:40)
[2019-10-24] MEDS: amLODIPine BESYLATE 5 MG TABLET PO (07:40)
[2019-10-24] MEDS: FUROSEMIDE INJ 40 MG/4 ML VIAL IV PUSH (07:41)
[2019-10-24 08:57] LABS: Glucose Point of Care 220 (65-105)
--- NOTE | 2019-10-24 12:00 | PC.NURSE ---
patient in nuc med for HIDA scan.
[2019-10-24] MEDS: MORPHINE SULFATE 2 MG/ML INJ IV PUSH (13:56)
[2019-10-24 14:00] VITALS: BP 148/63; PULSE 79; RESP 22; TEMP 36.6; O2SAT 90
--- NOTE | 2019-10-24 14:30 | PC.NURSE ---
patient returned to room from [facility]. family at bedside.
[2019-10-24 15:39] LABS: Glucose Point of Care 200 (65-105)
--- NOTE | 2019-10-24 16:06 | PM.IMPN ---
Progress Note: A&P Assessment and Plan (1) Acute cholecystitis: Code(s): K81.0 - Acute cholecystitis Status: Acute Assessment and Plan: -----although the patient's pain has improved, his white blood cell count and HIDA scan show evidence of acute cholecystitis. Blood cultures are and he has been afebrile. The patient's vitals are stable. I called Dr. Torres and spoke with him about the case and he is going to see the patient in consult. For now, continue Zosyn and will start on a clear liquid diet. NPO at midnight. (2) Acute epigastric pain: Code(s): R10.13 - Epigastric pain Status: Acute Assessment and Plan: -----patient's symptoms do sound like gastritis, possible ulcer but could also be a gallbladder issue as stated above. Continue PPI. He has no dark stool and his hemoglobin stable so the plan is to follow-up with a GI doctor outpatient and discharge on PPI. (3) Acute respiratory failure with hypoxia: Code(s): J96.01 - Acute respiratory failure with hypoxia Status: Acute Assessment and Plan: -----resolved. Patient was hypoxic in the ER and was placed on oxygen. Sounds like he has been having dyspnea on exertion which is chronic for the last 6 months and has not worsened. I suspect that he may have undiagnosed and untreated sleep apnea causing right heart failure and pulmonary hypertension. Echo still pending. Lower extremity edema much improved with IV diuretics and those were stopped due to hyponatremia this morning. Troponins negative. Because of his D-dimer being elevated, CTA and ultrasound of the lower extremities negative. (4) Type 2 diabetes mellitus with other skin complications: Code(s): E11.628 - Type 2 diabetes mellitus with other skin complications Status: Acute Assessment and Plan: -----last glucose 200. Will continue Accu-Cheks and sliding scale insulin. (5) Essential (primary) hypertension: Code(s): I10 - Essential (primary) hypertension Status: Acute Assessment and Plan: -----last blood pressure 148/63. Continue home medications (6) Hyperlipidemia LDL goal <70: Code(s): E78.5 - Hyperlipidemia, unspecified Status: Acute Assessment and Plan: -----continue statin therapy (7) Hyponatremia: Code(s): E87.1 - Hypo-osmolality and hyponatremia Status: Acute Assessment and Plan: -----patient's sodium is 129 and 1 month ago it was 134. Today it is worse at 125. I have stopped the diuretics and we will see if it is improving with that. If it does not improve, suggest urine studies. (8) Suspected sleep apnea: Code(s): R29.818 - Other symptoms and signs involving the nervous system Status: Acute Assessment and Plan: -----as stated above. Patient will need outpatient testing. He is high risk for sleep apnea as he is overweight and has a large neck circumference. He reports that his says that he has the symptoms while sleeping. Time Spent With Patient Time with patient: 25 - 35 minutes Subjective Date/time seen: 10/24/19 16:06 Interval history: Pt is a 84-year-old male here for epigastric pain found to have probable acute cholecystitis. Patient was seen today and just states he is hungry and thirsty. He has not had much more abdominal pain since being here. He thinks they are more hunger pains at this time. His lower extremity edema has improved greatly. He denies chest pain, shortness of breath, fevers, chills, nausea or vomiting. Review of Systems Review of Systems: All systems reviewed & are unremarkable except as noted in HPI and below Exam Narrative: Exam Narrative: General: Overweight patient resting comfortably in bed in no acute distress HEENT: Normocephalic, atraumatic, PERRL, Sclerae anicteric, oral mucosa moist. Neck: Supple Resp: Decreased breath sounds due to body habitus and likely componen
[2019-10-24 17:48] LABS: Glucose Point of Care 202 (65-105)
[2019-10-24] MEDS: INSULIN ASPART (*BKC) 100 UNITS/ML SUB-Q (17:48)
--- NOTE | 2019-10-24 21:00 | PM.CNGS ---
Assessment and Plan Assessment and plan (1) Acute cholecystitis: Code(s): K81.0 - Acute cholecystitis Status: Acute Assessment and Plan: I have reviewed all of the imaging and discussed the findings with the patient. With his ongoing elevation of white blood count and liver enzymes, this would be consistent with acute cholecystitis. The patient is feeling somewhat better today, but he is at high risk for sepsis or gangrenous cholecystitis due to his comorbidities. He has been started on Zosyn IV for broad-spectrum coverage. I have recommended laparoscopic cholecystectomy, possible open. I have discussed the procedure, risks, benefits, and alternatives with the patient. Questions were answered. He is at high risk for perioperative complications due to his diabetes, and morbid obesity. Of note, the patient did just have a steroid injection into his shoulder on 10/13/2019. Not sure if this could be causing a false elevation in his white blood count. (2) Umbilical hernia without obstruction and without gangrene: Code(s): K42.9 - Umbilical hernia without obstruction or gangrene Status: Acute (3) Type 2 diabetes mellitus with diabetic polyneuropathy: Code(s): E11.42 - Type 2 diabetes mellitus with diabetic polyneuropathy Status: Acute (4) BMI 38.0-38.9,adult: Code(s): Z68.38 - Body mass index (BMI) 38.0-38.9, adult Status: Acute History of Present Illness Consult details Consult date: 10/24/19 Reason for consult: abdominal pain Requesting physician: Betzy Fitzgeradl PA-C Narrative: This is an 84-year-old man who presented to the emergency department on 10/23/2019 with abdominal pain for the past couple days. He states that this began after eating a spicy sausage. He continued to have constant pain since it initially started. He denies prior episodes of pain like this in the past. He denies any associated nausea or vomiting. He denies any fevers. Pain is located mostly in the epigastric region. He states that today his pain is slightly better. He initially had a CT of his chest, abdomen, and pelvis as well as a gallbladder ultrasound. This showed evidence of gallbladder distention and sludge with gallbladder wall thickening. His white blood count went up today therefore a HIDA scan was obtained. This showed evidence of nonvisualization of the gallbladder consistent with acute cholecystitis. Review of Systems Review of Systems: All systems reviewed & are unremarkable except as noted in HPI and below Eyes: Eyes: Denies change in vision ENT: Denies hearing loss, Denies neck pain and Denies sore throat Cardiovascular: Cardiovascular: Denies chest pain and Denies dyspnea Respiratory: Respiratory: Denies cough, Denies dyspnea and Denies wheezing Gastrointestinal: Gastrointestinal: Reports as per HPI Genitourinary: Genitourinary: Denies hematuria and Denies dysuria Musculoskeletal: Musculoskeletal: Denies arthralgias, Denies joint swelling and Denies neck pain Allergic/Immunologic: Allergic/Immunologic: Denies wheezing PMFSH Past Medical History Medical History At high risk for injury related to fall Chronic gout, unspecified, without tophus (tophi) (11/17/18) Chronic kidney disease, stage 3 (moderate) Chronic kidney disease, stage III (moderate) Chronic left shoulder pain Diabetic nephropathy associated with type 2 diabetes mellitus DJD of shoulder Edema of both legs Essential (primary) hypertension Hyperlipidemia LDL goal <70 Medication monitoring encounter Overweight (10/06/16) Personal history of nicotine dependence Psoriasis 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
[2019-10-24 22:00] VITALS: BP 141/58; PULSE 81; RESP 20; TEMP 36.8; O2SAT 93
[2019-10-25] VITALS (26 sets, daily range): BP systolic 110–140; BP diastolic 45–92; PULSE 64–81; RESP 17–27; TEMP 36.6–37.2; O2SAT 86–100
[2019-10-25 02:38] LABS: Glucose Point of Care 320 (65-105)
[2019-10-25 06:24] LABS: Basophils Percent Auto 0.1 % (0.2-1.2); Hematocrit 35.9 % (42.0-52.0); Hemoglobin 12.2 g/dL (14.0-18.0); Immature Granulocyte Absolute 0.19 K/mm3 (0.00-0.031); Immature Granulocyte Percent A 0.9 % (0-0.5); Lymphocytes Absolute Auto 0.79 K/mm3 (0.9-3.2); Lymphocytes Percent Auto 3.8 % (18.3-44.2); Mean Corpuscular Volume 91.1 fl (80-100); Mean Platelet Volume 11.6 fl (7.4-10.4); Monocytes Absolute Auto 1.1 K/mm3 (0.1-0.6); Monocytes Percent Auto 5.4 % (2.6-8.5); Neutrophils Absolute Auto 18.5 K/mm3 (1.3-6.7); Neutrophils Percent Auto 89.8 % (45.5-73.1); Platelet Count Result 166 k/mm3 (150-375); Red Blood Count 3.94 M/mm3 (4.6-6.20); Red Cell Distribution Width 12.9 % (11.5-14.5); White Blood Count 20.7 K/mm3 (4.5-10.0)
[2019-10-25 06:30] LABS: INR 1.2; Partial Thromboplastin Time 28.6 SECONDS (22.3-36.8); Prothrombin Time 15.2 Seconds (11.1-14.7)
[2019-10-25 06:35] LABS: Alanine Aminotransferase 15 U/L (4-50); Albumin Level 3.7 g/dL (3.5-5.1); Alkaline Phosphatase 73 U/L (38-126); Aspartate Amino Transferase 17 U/L (17-59); Bilirubin,Total 1.4 mg/dL (0.2-1.3); Blood Urea Nitrogen 37 mg/dL (9-20); Calcium 8.4 mg/dL (8.4-10.2); Carbon Dioxide 30 mmol/L (22-30); Chloride 85 mmol/L (98-107); Estimated CRCL calculation 34 ml/min; Estimated Glomerular Filt Rate 34; Glucose 187 mg/dL (75-110); Lipase 15 U/L (23-300); Potassium 3.7 mmol/L (3.4-5.0); Sodium 124 mmol/L (137-145)
[2019-10-25] MEDS: CANDESARTAN CILEXETIL 16 MG TABLET 32 MG PO (09:06)
[2019-10-25] MEDS: PANTOPRAZOLE 40 MG TABLET PO (09:07)
[2019-10-25] MEDS: amLODIPine BESYLATE 5 MG TABLET PO (09:07)
[2019-10-25] MEDS: allopurinoL 100 MG TABLET PO (09:07)
[2019-10-25] MEDS: ATORVASTATIN 40 MG TABLET PO (09:07)
[2019-10-25 09:14] LABS: Glucose Point of Care 188 (65-105)
--- NOTE | 2019-10-25 09:36 | WPDANESEPPF ---
Anes - Initial Pre Proc Eval Procedure: Operation Date: 10/25/19 10:30 Proposed Procedures p Laparoscopic Cholecystectomy - Poonam Mc MD Date/Time: 10/25/19 09:36 Surgeon: DEEPA Stone Pre Op Diagnosis: epigastric pain, rule out gallstones, and hypoxia Patient Data Age: 84 Gender: M Height: 5 ft 10 in Weight: 121.9 kg Last Vital Signs Temp 37.1 C 10/25/19 06:00 Pulse 78 10/25/19 06:00 Resp 20 10/25/19 06:00 BP 136/58 L 10/25/19 06:00 Pulse Ox 91 10/25/19 06:00 Allergies Allergy/AdvReac Type Severity Reaction Status Date / Time No Known Allergies Allergy Unknown Verified 10/13/19 14:58 Home Medications Medication Instructions Recorded Confirmed Type amlodipine 5 mg tablet 5 mg PO DAILY 03/31/19 10/23/19 History aspirin 81 mg tablet,delayed 81 mg PO DAILY 03/31/19 10/23/19 History release atorvastatin 40 mg tablet 40 mg PO DAILY #90 tablet 04/01/19 10/23/19 Rx glipizide 10 mg tablet 10 mg PO DAILY #90 tablet 06/29/19 10/23/19 Rx chlorthalidone 25 mg tablet 25 mg PO DAILY #90 tablet 08/10/19 10/23/19 Rx candesartan 32 mg tablet 32 mg PO DAILY #90 tablet 10/04/19 10/23/19 Rx allopurinol 100 mg PO DAILY 10/23/19 10/23/19 History metformin 500 mg PO BID 10/23/19 10/23/19 History Laboratory Tests 10/24/19 10/24/19 10/24/19 14:32 17:12 21:21 WBC RBC Hgb Hct MCV MCH MCHC RDW Plt Count MPV Immature Gran % (Auto) Neut % (Auto) Lymph % (Auto) Webb % (Auto) Eos % (Auto) Baso % (Auto) Lymph # (Auto) Webb # (Auto) Eos # (Auto) Baso # (Auto) Abs Immat Gran (auto) Absolute Neuts (auto) Absolute Nucleated RBC Nucleated RBC % PT INR APTT Sodium Potassium Chloride Carbon Dioxide BUN Creatinine Estim Creat Clear Calc Estimated GFR Glucose POC Capillary Glucose 200 mg/dl H mg/dl 202 mg/dl H mg/dl 320 mg/dl H mg/dl (65-105) (65-105) (65-105) Calcium Total Bilirubin Direct Bilirubin AST ALT Alkaline Phosphatase Total Protein Albumin Lipase Blood Type Antibody Screen 10/25/19 10/25/19 10/25/19 06:01 06:01 06:01 WBC 20.7 K/mm3 H K/mm3 (4.5-10.0) RBC 3.94 M/mm3 L M/mm3 (4.6-6.20) Hgb 12.2 g/dL L g/dL (14.0-18.0) Hct 35.9 % L % (42.0-52.0) MCV 91.1 fl fl (80-100) MCH 31.0 pg pg (26-34) MCHC 34.0 g/dl g/dl (32-36) RDW 12.9 % % (11.5-14.5) Plt Count 166 k/mm3 k/mm3 (150-375) MPV 11.6 fl H fl (7.4-10.4) Immature Gran % (Auto) 0.9 % H % (0-0.5) Neut % (Auto) 89.8 % H % (45.5-73.1) Lymph % (Auto) 3.8 % L % (18.3-44.2) Webb % (Auto) 5.4 % % (2.6-8.5) Eos % (Auto) 0.0 % % (0-4.4) Baso % (Auto) 0.1 % L % (0.2-1.2) Lymph # (Auto) 0.79 K/mm3 L K/mm3 (0.9-3.2) Webb # (Auto) 1.1 K/mm3 H K/mm3 (0.1-0.6) Eos # (Auto) 0.0 K/mm3 K/mm3 (0-0.3) Baso # (Auto) 0.0 K/mm3 K/mm3 (0.0-0.1) Abs Immat Gran (auto) 0.19 K/mm3 H K/mm3 (0.00-0.031) Absolute Neuts (auto) 18.5 K/mm3 H K/mm3 (1.3-6.7) Absolute Nucleated RBC 0.0 K/mm3 K/mm3 (0.0-0.012) Nucleated RBC % 0.0 % % (0.0-0.2) PT 15.2 Seconds H D Seconds (11.1-14.7) INR 1.2 APTT 28.6 SECONDS SECONDS (22.3-36.8) Sodium 124 mmol/L L mmol/L (1
[2019-10-25] MEDS: LACTATED RINGERS 1,000 ML 30 ML IV CONT (09:45)
[2019-10-25] MEDS: BUPIVACAINE/EPINEPHRINE 0.5% 30 ML VIAL INFILTRATE (10:22)
--- NOTE | 2019-10-25 11:01 | PC.NURSE ---
Pt went to pre-op at 0930.
--- NOTE | 2019-10-25 11:06 | PM.PROC ---
Procedure Note - Detailed Date of procedure: 10/25/19 Pre-op diagnosis: epigastric pain, rule out gallstones, and hypoxia Acute cholecystitis, cholelithiasis Post-op diagnosis: other ( acute gangrenous cholecystitis) Procedure performed: laparoscopic cholecystectomy Description of procedure: The patient was taken to the operating room placed in the supine position. After adequate induction of general anesthesia, the patient was prepped and draped in normal sterile fashion. A time-out was then performed to verify the patient's identity as well as the procedure being performed. I then made a 5 mm incision in the supraumbilical region, avoiding the large umbilical hernia. Through this, a Veress needle was placed into the peritoneal cavity and CO2 gas was then insufflated. After adequate pneumoperitoneum was achieved, the Veress needle was removed and a 5 mm trocar was placed through this incision. I then placed the laparoscope through this trocar site and under direct visualization placed a further 12 mm subxiphoid port as well as 2 additional 5 mm ports in the right upper abdomen. The gallbladder was then identified and was noted to be very inflammed, friable. given the large amount of inflammation and friability, I decompressed the gallbladder with a ovarian needle this point. Thick bilious material was drained as well as some noted purulent drainage. I then bluntly was able to peel off the inflammatory rind off the gallbladder itself. Once this was done, I was then able to place a grasper at the dome of the gallbladder and this was retracted anterior and cephalad up over the liver. It was noted at this point, that there was some gangrenous changes in the gallbladder wall itself. A 2nd retractor was then placed at the infundibulum and retracted laterally, this allowed visualization of the triangle of Calot. I then was able to visualize the cystic duct in its entirety from its proximal insertion into the gallbladder, to its distal junction with the common hepatic/common bile duct junction. At this point, I carefully skeletonized the proximal cystic duct with the [place] dissector. This dissection was noted to be very friable and difficult, as the duct continued to tear with gentle retraction/dissection. I then clipped and transected the proximal cystic duct. Next I visualized the cystic artery. Again the artery was skeletonized, clipped, and transected. I then used the Bovie cautery to take down the peritoneal attachments of the gallbladder off the liver bed. This was done with a lot of difficulty as the wall was very friable and inflamed. Once the gallbladder specimen was completely detached, an endo-pouch was placed through the 12 mm port site. I then placed the gallbladder specimen into the Endo pouch and removed the endo-pouch from the 12 mm port site. The specimen will now be sent to pathology for further review. I then copiously irrigated the right upper quadrant. Hemostasis was noted in the liver bed, the clips were noted to be in good position on both the cystic duct stump and the cystic artery stump. No other pathology was noted in the right upper quadrant. I then moved the laparoscope to the subxiphoid port. No iatrogenic injury or other pathology was noted in the lower abdomen. At this point, the abdomen was desufflated and all ports removed. The fascia of the 12 mm subxiphoid port was closed with a 0 Vicryl figure of 8 suture. All port sites were then closed with 4.O Monocryl subcuticular sutures. Dermabond was placed on each incision. Given the amount of inflammation, I opened up the specimen the back table and confirmed the anatomy of the gallbladder. The patient tolerated the procedure well, was extubated in the operating room postoperative and will be transferred to the recovery room in stable condition. Implants: none Anesthesia: GETA Surgeon: Poonam Mc MD Estimated blood loss (mL): 20 Drains: No Packing: No Pathology: ye
--- NOTE | 2019-10-25 11:23 | SUR.PHASEI ---
BIPAP PUT ON AT 1115. 15/5 RATE OF 8 AT 50% O2, O2 SATS AT 94%
[2019-10-25 14:06] LABS: Glucose Point of Care 227 (65-105)
[2019-10-25] MEDS: INSULIN ASPART (*BKC) 100 UNITS/ML SUB-Q (14:21)
--- NOTE | 2019-10-25 15:35 | PM.IMPN ---
Progress Note: A&P Assessment and Plan (1) Acute cholecystitis: Code(s): K81.0 - Acute cholecystitis Status: Acute Assessment and Plan: POD#[address] Mc this morning. Noted his order to advance diet as tolerated from clear liquids. Op note described gangrenous changes and friable tissue; plan to continue IV zosyn for now (day 3). (2) Acute respiratory failure with hypoxia: Code(s): J96.01 - Acute respiratory failure with hypoxia Status: Acute Assessment and Plan: Resting comfortably on BiPAP postoperatively, noted trouble keeping saturations up out of PACU with O2. Patient previously described worsening dyspnea on exertion x 6 mo, at bedside confirms this. She describes he is tired all day, naps all day, wakes up all throughout the night. Suspect he may have a component of undiagnosed/untreated sleep apnea. Echocardiogram reviewed and shows good systolic function EF 65-75%, grade I diastolic dysfunction. CTA 10/22 shows no PE or other acute findings for that matter. Obtain CXR, ABG. Discussed with RN, can come off BiPAP this evening for dinner and see if he can tolerate staying off BiPAP for a bit on supplemental O2. If sats < 90%, put back on BiPAP. Recommend wearing BiPAP overnight tonight. (3) Type 2 diabetes mellitus with other skin complications: Code(s): E11.628 - Type 2 diabetes mellitus with other skin complications Status: Acute Assessment and Plan: Last glucose 227 this afternoon. His oral metformin and glipizide are held. Continue to monitor with accu-cheks and cover with SSI. (4) Essential (primary) hypertension: Code(s): I10 - Essential (primary) hypertension Status: Acute Assessment and Plan: Stable, last 133/67. Maintained on his home ARB and norvasc; home chlorthalidone held due to hyponatremia. Monitor BP and adjust treatment as needed. (5) Hyperlipidemia LDL goal <70: Code(s): E78.5 - Hyperlipidemia, unspecified Status: Acute Assessment and Plan: Maintained on home statin therapy. (6) Hyponatremia: Code(s): E87.1 - Hypo-osmolality and hyponatremia Status: Acute Assessment and Plan: Na 124 this morning. Was previously diuresed with home chlorthalidone and additional IV lasix due to lower extremity edema. Hold diuretics and recheck in AM. (7) Suspected sleep apnea: Code(s): R29.818 - Other symptoms and signs involving the nervous system Status: Acute Assessment and Plan: See above. Patient's at bedside describes he wakes all through the night, naps throughout the day. BiPAP at night here. Recommend follow up with outpatient sleep study and PFTs too. Subjective Date/time seen: 10/25/19 15:15 Interval history: Mr. Castaneda is an 84yo M admitted with acute cholecystitis and acute respiratory failure with hypoxia. He is seen in follow up this afternoon s/p lap choleycystectomy. Transferred to ICU with IMU status out of the PACU due to hypoxia, now resting comfortably on BiPAP. He is awake and shakes head yes and no to some questions but defers most questions to his at bedside because he is having trouble speaking with the mask on. Review of Systems Review of Systems: Narrative: Twelve systems were reviewed with pertinent positives and negatives as per HPI. Exam Narrative: Exam Narrative: General: Overweight patient resting comfortably in bed in no acute distress, on BiPAP. HEENT: Normocephalic, EOMI, sclerae anicteric, oral mucosa tacky. Neck: Supple Resp: On BiPAP, O2 98%. No wheezing or rhonchi noted. Heart: Rate and rhythm regular. Telemetry review shows sinus rhythm HR 76. Abd: Protuberant but soft, incisions c/d/i; umbilical hernia easil
[2019-10-25 18:19] LABS: Base Excess ABG 0.3 mEq/l (+/-2.0); Carboxyhemoglobin 0.1 % THb (0-2.0); Device NON-INVASIVE VENT; Fractional Inspired Oxygen 50 %; HCO3 ABG 25.1 mEq/l (22.0-26.0); Methemoglobin ABG 0.4 %THb (0-1.5); Modified Allen's Test Pass; Non-Invasive Expiratory Pressure 5 CMH2O; Non-Invasive Inspiratory Pressure 15 CMH2O; Non-Invasive Vent Rate 8 /MIN; Oxygen Content ABG 16.6 %vol (16.0-22.0); Oxygen Saturation ABG 98.3 % (95.0-100.0); Oxyhemoglobin 96.7 % THb (90.0-100.0); PCO2 ABG 41.4 mmHg (35.0-45.0); PO2 ABG 118.9 mmHg (80.0-100.0); PO2 FiO2 Ratio Arterial Blood 2.38 %; Reduced Hemoglobin 2.8 %THb (0-5.0); Site Drawn RIGHT RADIAL; Total Hemoglobin 12.1 g/dL (12.0-18.0); pH ABG 7.401 (7.350-7.450)
[2019-10-25 18:24] LABS: Glucose Point of Care 191 (65-105)
[2019-10-25 19:40] LABS: Blood Urea Nitrogen 41 mg/dL (9-20); Calcium 8.2 mg/dL (8.4-10.2); Carbon Dioxide 28 mmol/L (22-30); Chloride 85 mmol/L (98-107); Estimated CRCL calculation 26 ml/min; Estimated Glomerular Filt Rate 25; Glucose 176 mg/dL (75-110); Sodium 123 mmol/L (137-145)
[2019-10-25 20:29] LABS: Glucose Point of Care 180 (65-105)
[2019-10-25] MEDS: FAMOTIDINE 20 MG TABLET PO (20:48)
[2019-10-25] MEDS: SODIUM CHLORIDE 0.9% IV 500 ML IV CONT (22:41)
[2019-10-25 23:14] LABS: Creatinine Urine 170.9 mg/dL
[2019-10-25 23:25] LABS: Sodium Urine Random 18 meq/L
[2019-10-26] VITALS (11 sets, daily range): BP systolic 109–127; BP diastolic 49–64; PULSE 65–74; RESP 18–26; TEMP 36.1–36.9; O2SAT 91–95
[2019-10-26] MEDS: SODIUM CHLORIDE 0.9% IV 500 ML 100 ML IV CONT (02:48)
[2019-10-26 04:58] LABS: Basophils Percent Auto 0.1 % (0.2-1.2); Eosinophils Percent Auto 0.1 % (0-4.4); Hematocrit 32.5 % (42.0-52.0); Hemoglobin 10.7 g/dL (14.0-18.0); Immature Granulocyte Absolute 0.08 K/mm3 (0.00-0.031); Immature Granulocyte Percent A 0.6 % (0-0.5); Lymphocytes Absolute Auto 0.45 K/mm3 (0.9-3.2); Lymphocytes Percent Auto 3.2 % (18.3-44.2); Mean Corpuscular HGB Conc 32.9 g/dl (32-36); Mean Corpuscular Hemoglobin 31.2 pg (26-34); Mean Corpuscular Volume 94.8 fl (80-100); Mean Platelet Volume 12.1 fl (7.4-10.4); Monocytes Percent Auto 6.9 % (2.6-8.5); Neutrophils Absolute Auto 12.7 K/mm3 (1.3-6.7); Neutrophils Percent Auto 89.1 % (45.5-73.1); Platelet Count Result 148 k/mm3 (150-375); Red Blood Count 3.43 M/mm3 (4.6-6.20); Red Cell Distribution Width 12.9 % (11.5-14.5); White Blood Count 14.2 K/mm3 (4.5-10.0)
[2019-10-26 05:14] LABS: Alanine Aminotransferase 40 U/L (4-50); Albumin Level 3.2 g/dL (3.5-5.1); Alkaline Phosphatase 64 U/L (38-126); Aspartate Amino Transferase 36 U/L (17-59); Bilirubin,Total 1.1 mg/dL (0.2-1.3); Blood Urea Nitrogen 47 mg/dL (9-20); Calcium 7.9 mg/dL (8.4-10.2); Carbon Dioxide 30 mmol/L (22-30); Chloride 83 mmol/L (98-107); Estimated CRCL calculation 21 ml/min; Estimated Glomerular Filt Rate 19; Glucose 205 mg/dL (75-110); Magnesium 1.8 mg/dL (1.6-2.3); Phosphorus 6.3 mg/dL (2.5-4.5); Potassium 4.1 mmol/L (3.4-5.0); Sodium 123 mmol/L (137-145)
--- NOTE | 2019-10-26 07:56 | WPDANESPN ---
Anes - Prog Note Post-Op Date/Time: 10/26/19 07:56 Cardiovascular status: normal Respiratory status: normal Airway patency: baseline Mental status: baseline Post-Op hydration status: normal Vital Signs: Last Vital Signs Temp 36.6 C 10/26/19 00:00 Pulse 74 10/26/19 04:00 Resp 20 10/26/19 04:00 BP 111/64 10/26/19 04:00 Pulse Ox 94 10/26/19 04:00 I/O: Intake & Output 10/25/19 10/25/19 10/26/19 15:59 23:59 07:59 Intake Total 590 887 1156 Output Total 375 Balance 087 525 1382 Laboratory Tests 10/26/19 04:19 10/26/19 04:19 10/25/19 10/25/19 10/25/19 06:01 09:12 14:00 WBC RBC Hgb Hct MCV MCH MCHC RDW Plt Count MPV Immature Gran % (Auto) Neut % (Auto) Lymph % (Auto) [place] % (Auto) Eos % (Auto) Baso % (Auto) Lymph # (Auto) [place] # (Auto) Eos # (Auto) Baso # (Auto) Abs Immat Gran (auto) Absolute Neuts (auto) Absolute Nucleated RBC Nucleated RBC % Puncture Site ABG pH ABG pCO2 ABG pO2 ABG PO2/FiO2 Ratio ABG HCO3 ABG O2 Saturation ABG O2 Content ABG Base Excess A-a Gradient Oxyhemoglobin Carboxyhemoglobin Methemoglobin Reduced Hemoglobin Total Hemoglobin O2 Delivery Device O2 Liters/Min Vent Rate FiO2 Expiratory Pressure Inspiratory Pressure Sodium Potassium Chloride Carbon Dioxide BUN Creatinine Estim Creat Clear Calc Estimated GFR Glucose POC Capillary Glucose 188 H 227 H Serum Osmolality Calcium Phosphorus Magnesium Total Bilirubin AST ALT Alkaline Phosphatase Total Protein Albumin TSH (Reflex) Urine Osmolality Ur Random Sodium Urine Creatinine Blood Type O Positive Antibody Screen Negative 10/25/19 10/25/19 10/25/19 17:50 18:11 19:03 WBC RBC Hgb Hct MCV MCH MCHC RDW Plt Count MPV Immature Gran % (Auto) Neut % (Auto) Lymph % (Auto) [place] % (Auto) Eos % (Auto) Baso % (Auto) Lymph # (Auto) [place] # (Auto) Eos # (Auto) Baso # (Auto) Abs Immat Gran (auto) Absolute Neuts (auto) Absolute Nucleated RBC Nucleated RBC % Puncture Site Right radial ABG pH 7.401 ABG pCO2 41.4 ABG pO2 118.9 H ABG PO2/FiO2 Ratio 2.38 ABG HCO3 25.1 ABG O2 Saturation 98.3 ABG O2 Content 16.6 ABG Base Excess 0.3 A-a Gradient 191.0 Oxyhemoglobin 96.7 Carboxyhemoglobin 0.1 Methemoglobin 0.4 Reduced Hemoglobin 2.8 Total Hemoglobin 12.1 O2 Delivery Device Non-invasive vent O2 Liters/Min Not Reportable Vent Rate 8 FiO2 50 Expiratory Pressure 5 Inspiratory Pressure 15 Sodium Potassium Chloride Carbon Dioxide BUN Creatinine Estim Creat Clear Calc Estimated GFR Glucose POC Capillary Glucose 191 H Serum Osmolality Pending Calcium Phosphorus Magnesium Total Bilirubin AST ALT Alkaline Phosphatase Total Protein Albumin TSH (Reflex) Urine Osmolality Ur Random Sodium Urine Creatinine Blood Type Antibody Screen 10/25/19 10/25/19 10/25/19 19:03 19:03 20:22 WBC RBC Hgb Hct MCV MCH MCHC RDW Plt Count MPV Immature Gran % (Auto) Neut % (Auto) Lymph % (Auto) [place] % (Auto) Eos % (Auto) Baso % (Auto) Lymph # (Auto) [place] # (Auto) Eos # (Auto) Baso # (Auto) Abs Immat Gran (auto) Absolute Neuts (auto) Absolute Nucleated RBC Nucleated RBC % Puncture Site ABG pH ABG pCO2 ABG pO2 ABG PO2/FiO2 Ratio ABG HCO3 ABG O2 Saturation ABG O2 Content ABG Base Excess A-a Gradient Oxyhemoglobin Carboxyhemoglobin Methemoglobin Reduced Hemoglobin Total Hemoglobin O2 Delivery Device O2 Liters/Min Vent Rate
[2019-10-26 08:41] LABS: Glucose Point of Care 238 (65-105)
[2019-10-26] MEDS: INSULIN ASPART (*BKC) 100 UNITS/ML SUB-Q ×2 (08:42→16:32)
[2019-10-26] MEDS: PANTOPRAZOLE 40 MG TABLET PO (08:43)
[2019-10-26] MEDS: ATORVASTATIN 40 MG TABLET PO (08:43)
[2019-10-26] MEDS: amLODIPine BESYLATE 5 MG TABLET PO (08:43)
[2019-10-26] MEDS: CANDESARTAN CILEXETIL 16 MG TABLET 32 MG PO (08:43)
[2019-10-26] MEDS: ASPIRIN 81 MG ENTERIC TABLET PO (08:43)
[2019-10-26] MEDS: allopurinoL 100 MG TABLET PO (08:43)
[2019-10-26] MEDS: FAMOTIDINE 20 MG TABLET PO ×2 (08:44→20:45)
[2019-10-26 11:40] LABS: Glucose Point of Care 159 (65-105)
--- NOTE | 2019-10-26 11:49 | PM.PNGS ---
Progress Note: A&P Assessment and Plan (1) Acute cholecystitis: Code(s): K81.0 - Acute cholecystitis Status: Acute Assessment and Plan: doing well, ok to tx to floor from surgical standpoint, ADAT, cont abx Subjective Subjective Date/Time Seen: 10/26/19 11:49 feels pretty good, mild incisional soreness Review of Systems Constitutional: Constitutional: Reports fatigue and Reports weakness Cardiovascular: Cardiovascular: Denies chest pain Respiratory: Respiratory: Reports dyspnea and Reports dyspnea on exertion Gastrointestinal: Gastrointestinal: Reports abdominal pain, Denies nausea and Denies vomiting Exam Const: General: no acute distress Resp: Auscultation: diminished lung sounds Cardio: Rate: regular rate Rhythm: regular rhythm GI: Other: Soft, sl dist, deangelo TTP, incisions C/D/I Objective Data Vital Signs Vital Signs: Vital Signs - 24 hr 10/25/19 12:00 10/25/19 12:15 10/25/19 12:30 Temperature Pulse Rate 73 75 77 Respiratory Rate 24 H 19 27 H Blood Pressure 123/64 120/68 118/60 Pulse Oximetry 95 94 95 10/25/19 12:45 10/25/19 13:00 10/25/19 13:15 Temperature Pulse Rate 71 71 73 Respiratory Rate 24 H 25 H 23 H Blood Pressure 126/65 124/54 L 125/72 Pulse Oximetry 92 95 97 10/25/19 13:41 10/25/19 14:00 10/25/19 14:30 Temperature 37.2 C Pulse Rate 77 76 64 Respiratory Rate 24 H 26 H 24 H Blood Pressure 136/70 124/55 L 133/67 Pulse Oximetry 97 96 100 10/25/19 15:30 10/25/19 16:00 10/25/19 17:30 Temperature 36.7 C Pulse Rate 81 73 65 Respiratory Rate 21 H 24 H 21 H Blood Pressure 112/92 H 140/67 Pulse Oximetry 95 93 96 10/25/19 18:00 10/25/19 20:00 10/25/19 20:10 Temperature 36.8 C Pulse Rate 72 75 75 Respiratory Rate 24 H Blood Pressure 131/73 Pulse Oximetry 95 87 L 10/25/19 20:40 10/25/19 21:00 10/25/19 22:00 Temperature 36.6 C Pulse Rate 77 72 75 Respiratory Rate 19 Blood Pressure 110/52 L Pulse Oximetry 93 93 10/25/19 23:31 10/26/19 00:00 10/26/19 02:42 Temperature 36.6 C Pulse Rate 73 72 67 Respiratory Rate 24 H 19 20 Blood Pressure 127/62 Pulse Oximetry 95 95 95 10/26/19 04:00 10/26/19 08:00 10/26/19 08:58 Temperature 36.8 C Pulse Rate 74 65 Respiratory Rate 20 26 H Blood Pressure 111/64 113/59 L Pulse Oximetry 94 95 92 10/26/19 10:00 Temperature Pulse Rate 68 Respiratory Rate Blood Pressure Pulse Oximetry Intake/Output Intake/Output: Intake & Output 10/23/19 10/24/19 10/25/19 10/26/19 23:59 23:59 23:59 23:59 Intake Total 1645 1420 1090 2340 Output Total 825 975 500 375 Balance 820 930 332 8136 Meds/Results Medications: Active Medications Generic Name Dose Route Start Last Admin Trade Name Freq PRN Reason Stop Dose Admin Acetaminophen 1,000 mg 10/25/19 16:42 Tylenol Tablet PO Q6H PRN Mild Pain (1-3) or Fever Hydrocodone Bitart/Acetaminophen 1 tab 10/25/19 16:39 [place] 5-325 Mg PO Q6H PRN Pain Rated 4-6 Hydrocodone Bitart/Acetaminophen 1 tab 10/25/19 16:42 [place] 7.5-325 Mg PO Q6H PRN Pain Rated 7-10 Allopurinol 100 mg 10/24/19 09:00 10/26/19 08:43 Zyloprim PO 100 mg DAILY FLORENTIN Administration Amlodipine Besylate 5 mg 10/24/19 09:00 10/26/19 08:43 Norvasc PO 5 mg DAILY FLORENTIN Administration Aspirin 81 mg 10/24/19 09:00 10/26/19 08:43 Aspirin Ec PO 81 mg DAILY FLORENTIN Administration Atorvastatin Calcium 40 mg 10/24/19 09:00 10/26/19 08:43 Lipitor PO 40 mg DAILY FLORENTIN Administration Candesartan Cilexetil 32 mg 10/24/19 09:00 10/26/19 08:43 [place] PO 11/23/19 09:01 32 mg DAILY FLORENTIN Administration Chlorthalidone 25 mg 10/24/19 09:00 10/24/19 09:04 [place] PO Not Given DAILY FLORENTIN Dextrose 12.5 gm 10/23/19 10:42 Dextrose 50% Syringe IV PUSH PRN PRN Hypoglycemia Protocol Famotidine 20 mg 10/25/19 21:00 10/26/19 08:44 Pepcid P
--- NOTE | 2019-10-26 15:25 | PC.NURSE ---
This patient, Braulio Castaneda, was transferred to [[id number]] on 10/26/19 at 1514. Personal belongings sent with patient. Report given to [Da SAEED]. Appropriate documentation sent with patient.
--- NOTE | 2019-10-26 15:40 | PC.NURSE ---
This patient, Braulio Castaneda, was received from ICU on 10/26/19 at 1530. Personal belongings list checked and signed. Patient/family oriented to unit policies and routines
--- NOTE | 2019-10-26 16:02 | PM.IMPN ---
Progress Note: A&P Assessment and Plan (1) Acute cholecystitis: Code(s): K81.0 - Acute cholecystitis Status: Acute Assessment and Plan: POD#1 lap cholecystectomy.. Op note described gangrenous changes and friable tissue; plan to continue IV zosyn for now (day 4). (2) Acute respiratory failure with hypoxia: Code(s): J96.01 - Acute respiratory failure with hypoxia Status: Acute Assessment and Plan: Resting comfortably not on Bi pap anymore. Patient previously described worsening dyspnea on exertion x 6 mo. She describes he is tired all day, naps all day, wakes up all throughout the night. Suspect he may have a component of undiagnosed/untreated sleep apnea. Echocardiogram reviewed and shows good systolic function EF 65-75%, grade I diastolic dysfunction. CTA 10/22 shows no PE or other acute findings for that matter. Wean off oxygen, will need assessment for SOPHY as outpatient, dw pt and . (3) GUSTABO (acute kidney injury): Code(s): N17.9 - Acute kidney failure, unspecified Status: Acute Assessment and Plan: No clear etiology , probably due to overdiuresis. We will get a renal US, stop diuretics and avoid nephrotoxic drugs. We will consult nephrology. (4) Type 2 diabetes mellitus with other skin complications: Code(s): E11.628 - Type 2 diabetes mellitus with other skin complications Status: Acute Assessment and Plan: Glucose is above goal, continue ISS and add low dose long acting insulin q am. We will get a Hb A1c. (5) Essential (primary) hypertension: Code(s): I10 - Essential (primary) hypertension Status: Acute Assessment and Plan: Stable, we will hold his ARB and lasix given the GUSTABO Monitor BP and adjust treatment as needed. (6) Hyperlipidemia LDL goal <70: Code(s): E78.5 - Hyperlipidemia, unspecified Status: Acute Assessment and Plan: Maintained on home statin therapy. (7) Hyponatremia: Code(s): E87.1 - Hypo-osmolality and hyponatremia Status: Acute Assessment and Plan: Was previously diuresed with home chlorthalidone and additional IV lasix due to lower extremity edema. Hold diuretics and check urine and serum OSM, urine Na. (8) Suspected sleep apnea: Code(s): R29.818 - Other symptoms and signs involving the nervous system Status: Acute Assessment and Plan: See above. Patient's at bedside describes he wakes all through the night, naps throughout the day. BiPAP at night here. Recommend follow up with outpatient sleep study and PFTs too. Additional Plan Patient is being admitted under observation status supervising physician Dr. Giovanny Cheung Subjective Date/time seen: No new complains, resting comfortably. 10/26/19 16:02 Review of Systems Review of Systems: All systems reviewed & are unremarkable except as noted in HPI and below Exam Const: General: comfortable and no acute distress Other: Obese Neck: Neck: supple and no JVD Resp: Effort & Inspection: normal respiratory effort Auscultation: clear to auscultation bilaterally and diminished lung sounds Cardio: Rate: regular rate Rhythm: regular rhythm GI: Auscultation: normal bowel sounds Other: Obese abdomen with prominent umbuilical hernia without signs of strangulation. Mild diffuse tenderness, no guarding. Skin: General skin exam: no rashes or lesions noted Neuro: Speech: normal speech Motor exam (neuro): 5/5 motor strength present throughout and Normal motor muscle tone present throughout Sensory Exam: normal sensation Extrem: General: normal to inspection Other: Palpable pulses, trace edema. Psych: Affect: normal affect Objective Data Vital Signs Vital Signs
[2019-10-26 16:31] LABS: Glucose Point of Care 212 (65-105)
[2019-10-26 22:25] LABS: Glucose Point of Care 221 (65-105)
[2019-10-27] VITALS (12 sets, daily range): BP systolic 98–116; BP diastolic 51–82; PULSE 69–86; RESP 18–24; TEMP 36.4–37; O2SAT 91–96
[2019-10-27 06:28] LABS: Basophils Percent Auto 0.3 % (0.2-1.2); Eosinophils Absolute Auto 0.1 K/mm3 (0-0.3); Eosinophils Percent Auto 1.1 % (0-4.4); Hematocrit 31.8 % (42.0-52.0); Hemoglobin 10.7 g/dL (14.0-18.0); Immature Granulocyte Absolute 0.09 K/mm3 (0.00-0.031); Immature Granulocyte Percent A 0.8 % (0-0.5); Lymphocytes Percent Auto 5.1 % (18.3-44.2); Mean Corpuscular HGB Conc 33.6 g/dl (32-36); Mean Corpuscular Hemoglobin 31.5 pg (26-34); Mean Corpuscular Volume 93.5 fl (80-100); Mean Platelet Volume 11.8 fl (7.4-10.4); Monocytes Absolute Auto 1.1 K/mm3 (0.1-0.6); Monocytes Percent Auto 9.1 % (2.6-8.5); Neutrophils Absolute Auto 9.8 K/mm3 (1.3-6.7); Neutrophils Percent Auto 83.6 % (45.5-73.1); Platelet Count Result 168 k/mm3 (150-375); Red Cell Distribution Width 12.6 % (11.5-14.5); White Blood Count 11.8 K/mm3 (4.5-10.0)
[2019-10-27 06:42] LABS: Blood Urea Nitrogen 61 mg/dL (9-20); Calcium 7.5 mg/dL (8.4-10.2); Carbon Dioxide 24 mmol/L (22-30); Chloride 82 mmol/L (98-107); Estimated CRCL calculation 14 ml/min; Estimated Glomerular Filt Rate 11; Glucose 162 mg/dL (75-110); Sodium 118 mmol/L (137-145)
[2019-10-27] MEDS: ASPIRIN 81 MG ENTERIC TABLET PO (08:40)
[2019-10-27] MEDS: ATORVASTATIN 40 MG TABLET PO (08:40)
[2019-10-27] MEDS: FAMOTIDINE 20 MG TABLET PO ×2 (08:40→21:25)
[2019-10-27] MEDS: INSULIN GLARGINE (*BKC) 100 UNITS/ML 15 UNITS SUB-Q (08:41)
[2019-10-27] MEDS: amLODIPine BESYLATE 5 MG TABLET PO (08:41)
[2019-10-27 08:51] LABS: Glucose Point of Care 161 (65-105)
--- NOTE | 2019-10-27 10:22 | PM.IMPN ---
Progress Note: A&P Assessment and Plan (1) Acute cholecystitis: Code(s): K81.0 - Acute cholecystitis Status: Acute Assessment and Plan: POD#2 lap cholecystectomy.. Op note described gangrenous changes and friable tissue; pt is on IV zosyn (day 5). (2) Acute respiratory failure with hypoxia: Code(s): J96.01 - Acute respiratory failure with hypoxia Status: Acute Assessment and Plan: Resting comfortably not on Bi pap anymore. Pt is on 5 liters of oxygen Echocardiogram reviewed and shows good systolic function EF 65-75%, grade I diastolic dysfunction. CTA /12 shows no PE or other acute findings for that matter. Pt will need assessment for SOPHY as outpatient,Obese large neck Pt can wean off oxygen lungs are clear (3) GUSTABO (acute kidney injury): Code(s): N17.9 - Acute kidney failure, unspecified Status: Acute Assessment and Plan: No clear etiology , probably due to overdiuresis. Na is 118, POtassium is NL, Creat is 4.9 We will consult nephrology. (4) Type 2 diabetes mellitus with other skin complications: Code(s): E11.628 - Type 2 diabetes mellitus with other skin complications Status: Acute Assessment and Plan: Glucose is above goal, continue ISS and add low dose long acting insulin q am. Hb aic is awaiting (5) Essential (primary) hypertension: Code(s): I10 - Essential (primary) hypertension Status: Acute Assessment and Plan: Stable, we will hold his ARB and lasix given the GUSTABO (6) Hyperlipidemia LDL goal <70: Code(s): E78.5 - Hyperlipidemia, unspecified Status: Acute Assessment and Plan: Maintained on home statin therapy. (7) Hyponatremia: Code(s): E87.1 - Hypo-osmolality and hyponatremia Status: Acute Assessment and Plan: Was previously diuresed with home chlorthalidone and additional IV lasix due to lower extremity edema. Hold diuretics hyponatremia (8) Suspected sleep apnea: Code(s): R29.818 - Other symptoms and signs involving the nervous system Status: Acute Assessment and Plan: . BiPAP at night here. Recommend follow up with outpatient sleep study and PFTs too. Subjective Date/time seen: 10/27/19 10:22 Interval history: Mr. Castaneda is an 84yo M admitted with acute cholecystitis and acute respiratory failure with hypoxia. Pt is on 5 liters of oxygen presently. Pt POD day 2. Pt states he has not had a bowel movement since thursday. Pts abdomen appears distended today Review of Systems Review of Systems: All systems reviewed & are unremarkable except as noted in HPI and below Respiratory: Comments: Ongoing sob Gastrointestinal: Gastrointestinal: Reports bloating, Reports constipation, Denies diarrhea and Denies vomiting Comments: Abdominal distension Exam Const: General: comfortable and no acute distress Other: Obese on 5 liters of oxygen Resp: Effort & Inspection: normal respiratory effort Auscultation: clear to auscultation bilaterally Cardio: Rate: regular rate Rhythm: regular rhythm GI: Auscultation: normal bowel sounds Other: Obese abdomen with prominent umbilical hernia, small incision healing nicely. Abdominal distension BS present Skin: General skin exam: no rashes or lesions noted Neuro: Speech: normal speech Motor exam (neuro): 5/5 motor strength present throughout and Normal motor muscle tone present throughout Sensory Exam: normal sensation Extrem: General: normal to inspection Other: No edema Psych: Affect: normal affect Objective Data Vital Signs Vital Signs: Vital Signs - 24 hr 10/26/19 12:00 10/26/19 15:38 10/26/19 16:00 Temperature 36.9 C 36.1 C L Pulse Rate 73 74 69 Respiratory Rate
[2019-10-27 11:41] LABS: Glucose Point of Care 193 (65-105)
--- NOTE | 2019-10-27 12:19 | PM.CNNEP ---
Assessment and Plan Assessment and plan (1) GUSTABO (acute kidney injury): Code(s): N17.9 - Acute kidney failure, unspecified Status: Acute (2) Chronic kidney disease, stage III (moderate): Code(s): N18.3 - Chronic kidney disease, stage 3 (moderate) Status: Acute (3) Hyponatremia: Code(s): E87.1 - Hypo-osmolality and hyponatremia Status: Acute (4) Acute cholecystitis: Code(s): K81.0 - Acute cholecystitis Status: Acute (5) Acute respiratory failure with hypoxia: Code(s): J96.01 - Acute respiratory failure with hypoxia Status: Acute (6) Diabetes: Code(s): E11.9 - Type 2 diabetes mellitus without complications Status: Acute Assessment and Plan: . Additional Plan Braulio has suffered acute kidney injury/acute renal failure on top of his baseline kidney disease. I suspect the insult to his kidneys is multifactorial ATN -- he probably had some prerenal factors given the small during cholecystitis that was likely worsened by his continued use of an ARB (candesartan) and metformin prior to admission. Further insult probably occurred by the fact that he had 2 separate contrast exposures on admission is well with a CT scan of the abdomen pelvis with contrast on 10/[address] PE protocol on 10/22. It should also be noted that he did receive diuretic therapy for his presumed fluid overload status which probably did not help his kidney function either particularly if he was somewhat on the volume depleted side intravascularly in spite of evidence of swelling/edema. He was also receiving diuretic therapy prior to admission in the form of chlorthalidone. Further insult to his kidney function probably occurred in the form of relative hypotension postoperatively as the blood pressure was more in the 140-150 systolic on admission and then acutely dropped to 110-120 systolic more recently. It is difficult to assess why his sodium level dropped is significantly as it has but I suspect the above issues with regard to his kidney dysfunction were likely playing a role and perhaps maybe even a component of over-diuresis may have worsened his sodium level also. On the assumption that volume depletion is still playing a significant role with his kidney failure, I will start the patient on normal saline at 75 cc an hour but the same time put him on a fluid restriction to see if both a combination of IV fluids and fluid restriction helps keep his sodium level stable if not improved at. His urine electrolytes show clear evidence of prerenal azotemia. I will follow the trend of his sodium level every 4 hours and continue to follow his repeat labs regarding his renal function and creatinine to assess for the hope that his renal function will improve with supportive therapy. I did have a very long and lengthy discussion with the patient as well as his at bedside (greater than 20 minutes) regarding his acute kidney injury and the possible need for renal replacement therapy/dialysis should conservative therapy failed to improve his clinical condition. They both appeared to voice understanding but her hopeful that conservative therapy will get his kidney function back to his previous baseline. I will continue follow patient with you while remains hospitalized and make further recommendations based on his hospital course. Thank you for allowing me to participate in care this patient. History of Present Illness Reason for Consult Consult date: 10/27/19 Reason for consult: acute renal failure (on chronic kidney disease) Chief Complaint Chief complaint: epigastric pain, rule out gallstones, and hypoxia History of Present Illness Narrative: The patient is a 84 year old male with a past medical history as noted below who presented to [facility] ER emergency room about 4 days ago for epigastric pain. The pain was localized to his epigastric area and the nradiated to the RUQ the eveni
--- NOTE | 2019-10-27 12:30 | PM.PNGS ---
Progress Note: A&P Assessment and Plan (1) Acute cholecystitis: Code(s): K81.0 - Acute cholecystitis Status: Acute Assessment and Plan: Continues to do well from a surgical standpoint. Tolerating a diabetic diet. Continue antibiotics. We will sign off at this point. Follow-up with Dr. Mc or myself in the office in 2 weeks. Discussed post-op restrictions with the patient and his and will put in discharge instructions from us. (2) GUSTABO (acute kidney injury): Code(s): N17.9 - Acute kidney failure, unspecified Status: Acute Assessment and Plan: Management per Hospitalist and Nephrology was consulted. (3) Hyponatremia: Code(s): E87.1 - Hypo-osmolality and hyponatremia Status: Acute Assessment and Plan: Na 118 today. Likely contributing to his confusion. Management per primary team. (4) Acute respiratory failure with hypoxia: Code(s): J96.01 - Acute respiratory failure with hypoxia Status: Acute Additional Plan Discussed plan of care with Dr. Mc. Subjective Subjective Date/Time Seen: 10/27/19 11:30 Post Op day: 2 Patient reports: feels better, pain is less, flatus and no bowel movement Interval history: Patient reports feeling well today. He is oriented to person, place, and time, but is having some issues with confusion through the night and today. Per his , she has noticed he is confused today. Patient reportedly had issues with hypoxia overnight and had his oxygen requirements increased. Patient denies shortness of breath but does report a non-productive cough today. Denies abdominal pain, nausea, or vomiting. Reports lots of flatus and his last BM he thinks was 3 days ago but is unsure. No bloating. No other complaints at this time. Reports getting up to the chair today and tolerating that well. Review of Systems Review of Systems: All systems reviewed & are unremarkable except as noted in HPI and below Constitutional: Constitutional: Reports as per HPI, Denies chills, Denies fatigue and Denies fever(s) Cardiovascular: Cardiovascular: Reports no additional cardiovascular complaints, Denies chest pain, Denies leg edema, Denies lightheadedness and Denies palpitations Respiratory: Respiratory: Reports no additional respiratory complaints, Denies chest congestion, Reports cough, Denies dyspnea and Denies wheezing Gastrointestinal: Gastrointestinal: Reports as per HPI and Reports no additional gastrointestinal complaints Genitourinary: Genitourinary: Reports no additional male genitourinary complaints (Mello in place) Exam Const: General: comfortable, no acute distress, alert and awake Orientation/consciousness: patient oriented x3 and confusion Resp: Effort & Inspection: normal respiratory effort and able to speak in complete sentences Auscultation: diminished lung sounds Cardio: Rate: regular rate Rhythm: regular rhythm GI: Inspection: incision (Abdominal incisions clean/dry/intact.) and other (mildly distended) GI Palp: Yes Soft to palpation, Yes Tenderness to palpation present (GI) (appropriate incisional tenderness) and Yes Hernia present (large umbilical hernia) Auscultation: normal bowel sounds Urinary Catheter: Urinary Catheter: patent and draining and urine dark Neuro: General: moves all extremities Cranial nerves: Yes CN's II-XII intact bilaterally Speech: normal speech Extrem: General: no calf tenderness and no edema Psych: Mental Status: mental status grossly normal Attitude: cooperative Thought process: Normal thought process present Thought content: Yes Normal thought content present Objective Data Vital Signs Vital Signs: Vital Signs - 24 hr 10/26/19 15:38 10/26/19 16:00 10/26/19 20:00 Temperature 97 F L 96.9 F L Pulse Rate 74 69 70 Respiratory Rate 21 H 22 H Blood Pressure 109/49 L 115/52 L Pulse Oximetry 92 92 10/26/19 23:54 10/27/19 00:00 10/27/19 04:00 Temperature 97.9 F 97.8 F Pulse Rate 68 73 7
[2019-10-27] MEDS: SODIUM CHLORIDE 0.9% IV 1,000 ML 75 ML IV CONT (12:57)
[2019-10-27] MEDS: polyethylene glycoL 3350 17 GM POWD.PACK PO (12:58)
[2019-10-27 13:35] LABS: Sodium 119 mmol/L (137-145)
--- NOTE | 2019-10-27 15:30 | PC.NURSE ---
patient O2 saturation 90% on 5L NC. patient ambulated around room several times and became increasingly short of breath. O2 after activity was down to 83-85%. Even with rest patient needed 6L O2 for saturation to increase to 93%. RT aware.
[2019-10-27 16:30] LABS: Sodium 120 mmol/L (137-145)
[2019-10-27 16:44] LABS: Glucose Point of Care 171 (65-105)
[2019-10-27 20:41] LABS: Sodium 119 mmol/L (137-145)
[2019-10-27] MEDS: DOCUSATE SODIUM 100 MG CAPSULE PO (21:24)
[2019-10-27 22:20] LABS: Glucose Point of Care 162 (65-105)
[2019-10-28] VITALS (17 sets, daily range): BP systolic 101–152; BP diastolic 46–86; PULSE 65–78; RESP 18–24; TEMP 36.2–36.7; O2SAT 91–97
[2019-10-28] MEDS: WATER FOR IRRIGATION, STERILE 1,000 ML BOTTLE 1000 ML (03:51)
[2019-10-28 04:49] LABS: Sodium 118 mmol/L (137-145)
[2019-10-28 05:44] LABS: Basophils Percent Auto 0.3 % (0.2-1.2); Eosinophils Absolute Auto 0.1 K/mm3 (0-0.3); Eosinophils Percent Auto 0.5 % (0-4.4); Hematocrit 31.5 % (42.0-52.0); Hemoglobin 10.6 g/dL (14.0-18.0); Immature Granulocyte Absolute 0.06 K/mm3 (0.00-0.031); Immature Granulocyte Percent A 0.6 % (0-0.5); Lymphocytes Absolute Auto 0.56 K/mm3 (0.9-3.2); Lymphocytes Percent Auto 5.3 % (18.3-44.2); Mean Corpuscular HGB Conc 33.7 g/dl (32-36); Mean Corpuscular Hemoglobin 31.3 pg (26-34); Mean Corpuscular Volume 92.9 fl (80-100); Mean Platelet Volume 11.5 fl (7.4-10.4); Monocytes Absolute Auto 1.1 K/mm3 (0.1-0.6); Monocytes Percent Auto 10.5 % (2.6-8.5); Neutrophils Absolute Auto 8.7 K/mm3 (1.3-6.7); Neutrophils Percent Auto 82.8 % (45.5-73.1); Platelet Count Result 178 k/mm3 (150-375); Red Blood Count 3.39 M/mm3 (4.6-6.20); Red Cell Distribution Width 12.4 % (11.5-14.5); White Blood Count 10.5 K/mm3 (4.5-10.0)
[2019-10-28 06:00] LABS: Blood Urea Nitrogen 73 mg/dL (9-20); Calcium 7.3 mg/dL (8.4-10.2); Carbon Dioxide 23 mmol/L (22-30); Chloride 80 mmol/L (98-107); Estimated CRCL calculation 10 ml/min; Estimated Glomerular Filt Rate 8; Glucose 159 mg/dL (75-110); Potassium 4.2 mmol/L (3.4-5.0); Sodium 118 mmol/L (137-145)
[2019-10-28] MEDS: SODIUM CHLORIDE 0.9% IV 1,000 ML 75 ML IV CONT (06:55)
[2019-10-28 07:52] LABS: Glucose Point of Care 159 (65-105)
[2019-10-28] MEDS: FAMOTIDINE 20 MG TABLET PO ×2 (08:24→22:10)
[2019-10-28] MEDS: ATORVASTATIN 40 MG TABLET PO (08:25)
[2019-10-28] MEDS: DOCUSATE SODIUM 100 MG CAPSULE PO ×2 (08:25→22:27)
[2019-10-28] MEDS: INSULIN GLARGINE (*BKC) 100 UNITS/ML 15 UNITS SUB-Q (08:25)
[2019-10-28] MEDS: amLODIPine BESYLATE 5 MG TABLET PO (08:25)
[2019-10-28] MEDS: ASPIRIN 81 MG ENTERIC TABLET PO (08:25)
[2019-10-28] MEDS: polyethylene glycoL 3350 17 GM POWD.PACK PO (08:25)
[2019-10-28 11:33] LABS: Alveolar/Arterial O2 Gradient 191.5 mmHg; Base Excess ABG -7.3 mEq/l (+/-2.0); Fractional Inspired Oxygen 44 %; HCO3 ABG 20.2 mEq/l (22.0-26.0); Oxygen Content ABG 15.1 %vol (16.0-22.0); Oxyhemoglobin 91.7 % THb (90.0-100.0); PCO2 ABG 49.6 mmHg (35.0-45.0); PO2 FiO2 Ratio Arterial Blood 1.68 %; Site Drawn RIGHT RADIAL; Total Hemoglobin 11.7 g/dL (12.0-18.0); pH ABG 7.228 (7.350-7.450)
[2019-10-28 11:34] LABS: Device NASAL CANNULA; Modified Allen's Test Pass
--- NOTE | 2019-10-28 12:11 | P.PNNP_ITS ---
Progress Note: A&P Assessment and Plan (1) GUSTABO (acute kidney injury): Code(s): N17.9 - Acute kidney failure, unspecified Status: Acute Assessment and Plan: * multifactorial ATN: - prerenal factors (low urine Na) - ARB and metfomin use prior to admission - contrast exposure x 2 (on 10/21 and 10/[address] scans) - acute infection (cholecystitis) - relative hypotension * kidney function continues to decline * almost anuric at this time * will try trial of high dose diuretics * if renal function worse tomorrow and/or remains anuric -- will initiate renal replacement therapy/dialysis (2) Chronic kidney disease, stage III (moderate): Code(s): N18.3 - Chronic kidney disease, stage 3 (moderate) Status: Acute Assessment and Plan: * baseline creatinine ~ 1.2 - 1.5mg/dl * presumably due to DM, HTN, SOPHY, and age-related disease (3) Hyponatremia: Code(s): E87.1 - Hypo-osmolality and hyponatremia Status: Acute Assessment and Plan: * suspect due to GUSTABO/ARF * trial of IVFs given concerns of volume depletion but no change in sodium and remais almost anuric * placed on fluid restriction but not sure how help this will be * follow trend (4) Acute cholecystitis: Code(s): K81.0 - Acute cholecystitis Status: Acute Assessment and Plan: * s/p laparoscopic cholecystectomy * Surgery following (5) Acute respiratory failure with hypoxia: Code(s): J96.01 - Acute respiratory failure with hypoxia Status: Acute Assessment and Plan: * probably due to fluid retention and SOPHY/pulmonary hypertension * follow respiratory status closely * assess response to IV diuretic trial (6) Diabetes: Code(s): E11.9 - Type 2 diabetes mellitus without complications Status: Acute Assessment and Plan: * follow accuchecks * on Lantus and SSI Long and extensive discussion with patient and his (> 20 minutes) about his deteriorating kidney function and my concerns regarding anuria, volume overload, acidosis, and uremia; will try trial of high dose diuretics today and if renal function worse tomorrow, will proceed with [employer]/dialysis. Will continue to follow. Subjective Date/time seen: 10/28/19 12:11 Urine output continues to decline; some intermittent confusion overnight and this AM; issues with hypoxia overnight as well; at bedside and we discussed the situation in detail. Exam Narrative: Exam Narrative: General: WD/WN male in NAD Heart: normal S1 and S2; no rub Lungs: coarse Abdomen: soft, some TTP but + BS Extremities: no cyanosis or clubbing; trace edema Skin: warm and dry Objective Data Vital Signs Vital Signs: Vital Signs Temp Pulse Resp BP Pulse Ox 10/28/19 11:24 78 22 H 95 10/28/19 10:00 36.6 C 72 18 135/57 L 95 10/28/19 09:33 91 10/28/19 06:00 36.4 C 68 18 128/46 L 96 10/28/19 04:00 66 10/28/19 00:49 36.7 C 71 18 116/50 L 97 10/28/19 00:00 65 10/27/19 22:00 36.8 C 84 18 109/56 L 96 10/27/19 20:10 81 91 10/27/19 20:00 72 10/27/19 18:00 36.4 C 76 18 98/82 L 93 10/27/19 16:00 78 10/27/19 14:00 37.0 C 72 18 114/51 L 91 Intake/Output Intake/Output: Intake & Output 10/25/19 10/26/19
--- NOTE | 2019-10-28 12:11 | PM.PNNEP ---
Progress Note: A&P Assessment and Plan (1) GUSTABO (acute kidney injury): Code(s): N17.9 - Acute kidney failure, unspecified Status: Acute Assessment and Plan: multifactorial ATN: - prerenal factors (low urine Na) - ARB and metfomin use prior to admission - contrast exposure x 2 (on 10/21 and 10/[address] scans) - acute infection (cholecystitis) - relative hypotension kidney function continues to decline almost anuric at this time will try trial of high dose diuretics if renal function worse tomorrow and/or remains anuric -- will initiate renal replacement therapy/dialysis (2) Chronic kidney disease, stage III (moderate): Code(s): N18.3 - Chronic kidney disease, stage 3 (moderate) Status: Acute Assessment and Plan: baseline creatinine ~ 1.2 - 1.5mg/dl presumably due to DM, HTN, SOHPY, and age-related disease (3) Hyponatremia: Code(s): E87.1 - Hypo-osmolality and hyponatremia Status: Acute Assessment and Plan: suspect due to GUSTABO/ARF trial of IVFs given concerns of volume depletion but no change in sodium and remais almost anuric placed on fluid restriction but not sure how help this will be follow trend (4) Acute cholecystitis: Code(s): K81.0 - Acute cholecystitis Status: Acute Assessment and Plan: s/p laparoscopic cholecystectomy Surgery following (5) Acute respiratory failure with hypoxia: Code(s): J96.01 - Acute respiratory failure with hypoxia Status: Acute Assessment and Plan: probably due to fluid retention and SOPHY/pulmonary hypertension follow respiratory status closely assess response to IV diuretic trial (6) Diabetes: Code(s): E11.9 - Type 2 diabetes mellitus without complications Status: Acute Assessment and Plan: follow accuchecks on Lantus and SSI Long and extensive discussion with patient and his (> 20 minutes) about his deteriorating kidney function and my concerns regarding anuria, volume overload, acidosis, and uremia; will try trial of high dose diuretics today and if renal function worse tomorrow, will proceed with [employer]/dialysis. Will continue to follow. Subjective Date/time seen: 10/28/19 12:11 Urine output continues to decline; some intermittent confusion overnight and this AM; issues with hypoxia overnight as well; at bedside and we discussed the situation in detail. Exam Narrative: Exam Narrative: General: WD/WN male in NAD Heart: normal S1 and S2; no rub Lungs: coarse Abdomen: soft, some TTP but + BS Extremities: no cyanosis or clubbing; trace edema Skin: warm and dry Objective Data Vital Signs Vital Signs: Vital Signs Temp Pulse Resp BP Pulse Ox 10/28/19 11:24 78 22 H 95 10/28/19 10:00 36.6 C 72 18 135/57 L 95 10/28/19 09:33 91 10/28/19 06:00 36.4 C 68 18 128/46 L 96 10/28/19 04:00 66 10/28/19 00:49 36.7 C 71 18 116/50 L 97 10/28/19 00:00 65 10/27/19 22:00 36.8 C 84 18 109/56 L 96 10/27/19 20:10 81 91 10/27/19 20:00 72 10/27/19 18:00 36.4 C 76 18 98/82 L 93 10/27/19 16:00 78 10/27/19 14:00 37.0 C 72 18 114/51 L 91 Intake/Output Intake/Output: Intake & Output 10/25/19 10/26/19 10/27/19 10/28/19 23:59 23:59 23:59 23:59 Intake Total 1090 3120 1720 1580 Output Total 500 725 150 100 Balance 590 2395 1570 1480 Meds/Results Medications: Active Medications Generic Name Dose Route Start Last Admin Trade Name Freq PRN Reason Stop Dose Admin Acetaminophen 1,000 mg 10/25/19 16:42 Tylenol Tablet PO Q6H PRN Mild Pain (1-3) or Fever Hydrocodone Bitart/Acetaminophen 1 tab 10/25/19 16:39 [place] 5-325 Mg PO Q6H PRN Pain Rated 4-6 Hydrocodone Bitart/Acetaminophen 1 tab 10/25/19 16:42 [place] 7.5-325 Mg PO Q6H PRN Pain Rated 7-10 Amlodipine Besylate 5 mg 10/24/19 09:00 0
--- NOTE | 2019-10-28 14:03 | PM.IMPN ---
Progress Note: A&P Assessment and Plan (1) Acute cholecystitis: Code(s): K81.0 - Acute cholecystitis Status: Acute Assessment and Plan: POD#3 lap cholecystectomy.. Op note described gangrenous changes and friable tissue; pt is on IV zosyn (day 5). (2) Acute respiratory failure with hypoxia: Code(s): J96.01 - Acute respiratory failure with hypoxia Status: Acute Assessment and Plan: Pt is on BIPAP for respiratory distress and labored breathing Echocardiogram reviewed and shows good systolic function EF 65-75%, grade I diastolic dysfunction. CTA 7/12 shows no PE or other acute findings for that matter. Pt will need assessment for SOPHY as outpatient,Obese large neck and COPD Albuterol treatments started (3) GUSTABO (acute kidney injury): Code(s): N17.9 - Acute kidney failure, unspecified Status: Acute Assessment and Plan: No clear etiology , probably due to overdiuresis.Contrast dye PH 7.228, creat 6.9 from 4.9 sodium is 118. Communicated with nephrology ? pt may need dialyis (4) Type 2 diabetes mellitus with other skin complications: Code(s): E11.628 - Type 2 diabetes mellitus with other skin complications Status: Acute Assessment and Plan: Glucose is above goal, continue ISS and add low dose long acting insulin q am. Hb aic is awaiting (5) Essential (primary) hypertension: Code(s): I10 - Essential (primary) hypertension Status: Acute Assessment and Plan: Hold his ARB and lasix given the GUSTABO (6) Hyperlipidemia LDL goal <70: Code(s): E78.5 - Hyperlipidemia, unspecified Status: Acute Assessment and Plan: Maintained on home statin therapy. (7) Hyponatremia: Code(s): E87.1 - Hypo-osmolality and hyponatremia Status: Acute Assessment and Plan: Was previously diuresed with home chlorthalidone and additional IV lasix due to lower extremity edema. Hold diuretics hyponatremia (8) Suspected sleep apnea: Code(s): R29.818 - Other symptoms and signs involving the nervous system Status: Acute Assessment and Plan: . Pt is on BIPAP, Consulted DR Baldwin, pulmunology. For recommendations Subjective Date/time seen: 10/28/19 14:03 Interval history: Mr. Castaneda is an 84yo M admitted with acute cholecystitis and acute respiratory failure with hypoxia. Pt is on 5 liters of oxygen presently. Pt POD day 3. Pt has been having some labored breathing today started on BIPAP, ABG shows - ph 7.22, pco2 49, p02 74. And albuterol treatments. ? early COPD with sleep apnea Pt is also being worked up for ARF and is sp cholecystitis Review of Systems Review of Systems: All systems reviewed & are unremarkable except as noted in HPI and below Constitutional: Comments: overweight Respiratory: Respiratory: Reports dyspnea Gastrointestinal: Comments: loss of appetite Exam Const: General: comfortable and no acute distress Other: Obese on BIPAP Resp: Effort & Inspection: normal respiratory effort Auscultation: clear to auscultation bilaterally Cardio: Rate: regular rate Rhythm: regular rhythm GI: Auscultation: normal bowel sounds Other: Obese abdomen with prominent umbilical hernia, small incision healing nicely. BS present Skin: General skin exam: no rashes or lesions noted Neuro: Speech: normal speech Motor exam (neuro): 5/5 motor strength present throughout and Normal motor muscle tone present throughout Sensory Exam: normal sensation Extrem: General: normal to inspection Other: No edema Psych: Affect: normal affect Objective Data Vital Signs Vital Signs: Vital Signs - 24 hr 10/27/19 16:00 10/27/19 18:00 10/27/19 20:00 Temperature 36.4 C Puls
[2019-10-28] MEDS: BUMETANIDE INJ 2.5 MG/10 ML VIAL IV PUSH (15:51)
[2019-10-28 16:37] LABS: Glucose Point of Care 148 (65-105)
[2019-10-28 18:15] LABS: Glucose Point of Care 158 (65-105)
--- NOTE | 2019-10-28 19:55 | PM.CNPUL ---
Assessment and Plan Assessment and plan (1) Acute respiratory failure with hypoxia: Code(s): J96.01 - Acute respiratory failure with hypoxia Status: Acute Assessment and Plan: He is post op day #3 lap cholecystectomy with increasing O2 requirement, gradual appearance of increased markings on CXR consistent with atelectasis / infiltrates / pulmonary edema in the setting of worsening renal failure. He has a minimal history of smoking. by BiPAP can be used to assist with ventilation and recruitment of alveoli for improved oxygenation. Bronchodilator therapy, close follow-up and management of the fluid status per Nephrology. (2) Suspected sleep apnea: Code(s): R29.818 - Other symptoms and signs involving the nervous system Status: Acute Assessment and Plan: out patent work up (3) Personal history of nicotine dependence: Code(s): Z87.891 - Personal history of nicotine dependence Status: Acute Assessment and Plan: remote and very little, 4 year pack history History of Present Illness History of Present Illness Consult date: 10/28/19 Requesting physician: Tatyana Miller MD Reason for consult: hypoxemia Chief complaint: Epigastric pain, Rule out gallstones, and hypoxia Narrative: Patient was seen in consult was performed on October 28, 2019 Consult : increased respiratory distress This 84 yo man has numerous medical comorbidities, on 10/24 had a lap cholecystectomy for acute gangrenous cholecystitis, has chronic kidney disease stage 3 with acute worsening. His developed acute respiratory failure with patchy infiltrates in the chest x-ray consistent with atelectasis or pneumonia, and increased oxygen requirement. His ABG 10/28/2019 pH 7.228 / pCO2 49.6 / PO2 74 / bicarbonate 20.2 / saturation 92% / HC03 is 15 ; this is consistent with Respiratory and metabolic acidosis and hypoxemia, A-a gradient is increased at 191 on O2 at 6 L/min He has had increasing shortness of breath for several months prior to admission. 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 Edema of both legs Essential (primary) hypertension Fever Hyperlipidemia LDL goal <70 Medication monitoring encounter Overweight (10/06/16) Personal history of nicotine dependence Psoriasis 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resence of left artificial knee joint Family History Family History Sibling Patient's brother is in good health Patient's sister is Father Family history of heart disease in male family member before age 55 Patient's father is Mother Family history of heart disease in male family member before age 55 Other Diabetes mellitus Social History Social History Social History: Patient no longer smokes and quit 57 years ago. He does not do drugs or alcohol. 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 He lives at home with his
[2019-10-28] MEDS: BUMETANIDE INJ 2.5 MG/10 ML VIAL 2 MG IV PUSH (22:26)
[2019-10-28 23:59] LABS: Glucose Point of Care 113 (65-105)
[2019-10-29] VITALS (10 sets, daily range): BP systolic 118–145; BP diastolic 51–73; PULSE 70–82; RESP 20–25; TEMP 36.2–36.6; O2SAT 88–95
--- NOTE | 2019-10-29 00:49 | PC.NURSE ---
Patient has tolerated Bipap poorly throughout shift and is now refusing entirely. Dr. Sierra is aware of patients refusal
[2019-10-29 05:41] LABS: Hematocrit 31.3 % (42.0-52.0); Hemoglobin 10.8 g/dL (14.0-18.0); Mean Corpuscular HGB Conc 34.5 g/dl (32-36); Mean Corpuscular Hemoglobin 31.7 pg (26-34); Mean Corpuscular Volume 91.8 fl (80-100); Mean Platelet Volume 10.9 fl (7.4-10.4); Platelet Count Result 199 k/mm3 (150-375); Red Blood Count 3.41 M/mm3 (4.6-6.20); Red Cell Distribution Width 12.5 % (11.5-14.5); White Blood Count 10.6 K/mm3 (4.5-10.0)
[2019-10-29 05:58] LABS: Blood Urea Nitrogen 80 mg/dL (9-20); Calcium 7.5 mg/dL (8.4-10.2); Carbon Dioxide 21 mmol/L (22-30); Chloride 80 mmol/L (98-107); Estimated CRCL calculation 8 ml/min; Estimated Glomerular Filt Rate 6; Glucose 92 mg/dL (75-110); Potassium 4.7 mmol/L (3.4-5.0); Sodium 118 mmol/L (137-145)
[2019-10-29 06:50] LABS: Hepatitis B Surface Antigen Negative (Negative)
[2019-10-29 06:56] LABS: HAV RESULT Negative (Negative); Hepatitis B Core IgM Result Negative (Negative)
[2019-10-29 07:08] LABS: Hepatitis B Surface Anti Res Negative; Hepatitis C Virus Antibody Negative (Negative)
[2019-10-29 08:06] LABS: Glucose Point of Care 91 (65-105)
[2019-10-29] MEDS: amLODIPine BESYLATE 5 MG TABLET PO (09:46)
[2019-10-29] MEDS: polyethylene glycoL 3350 17 GM POWD.PACK PO (09:46)
[2019-10-29] MEDS: ATORVASTATIN 40 MG TABLET PO (09:46)
[2019-10-29] MEDS: FAMOTIDINE 20 MG TABLET PO ×2 (09:46→19:55)
[2019-10-29] MEDS: DOCUSATE SODIUM 100 MG CAPSULE PO ×2 (09:46→19:55)
[2019-10-29] MEDS: ASPIRIN 81 MG ENTERIC TABLET PO (09:46)
--- NOTE | 2019-10-29 11:40 | PC.NURSE ---
Oscar to R groin inserted at bedside with Dr. Burger, myself, and resident care technician Mindy Miguel. Time out performed and patient verified.
--- NOTE | 2019-10-29 11:45 | PM.PROC ---
Procedure Note - Detailed Date of procedure: 10/29/19 Pre-op diagnosis: Acute on chronic renal failure, inadequate venous Acute on chronic renal failure, inadequate venous access for dialysis Post-op diagnosis: same Procedure performed: Placement right femoral central venous catheter, Oscar Description of procedure: The patient was in his hospital bed. The hair the right groin was removed with a clip razor. The area was washed with soap and dried. Sterile prep and drape was then carried out of the right groin. Full gown and gloves were with mask in here covering was used. Time-out was performed. Local anesthetic was infiltrated over the right femoral vein. The right femoral vein was cannulated and a guidewire was passed up into the right iliac and vena cava. The tract was dilated with serial dilators. The Oscar central venous catheter was then passed over the guidewire and up into the proximal vena cava. Both ports aspirated blood easily and flushed nicely with saline. The catheter was sutured securely to the skin with 3 0 nylon. A sterile dressing was placed. The patient tolerated the procedure well. Anesthesia: local (0.5% lidocaine plain) Surgeon: Andreas Burger MD Estimated blood loss (mL): 10 Drains: No Packing: No Pathology: none sent Complications: None Condition: stable Disposition: floor Findings: None
[2019-10-29 12:04] LABS: Glucose Point of Care 85 (65-105)
--- NOTE | 2019-10-29 12:24 | PM.PNNEP ---
Progress Note: A&P Assessment and Plan (1) GUSTABO (acute kidney injury): Code(s): N17.9 - Acute kidney failure, unspecified Status: Acute Assessment and Plan: multifactorial ATN: - prerenal factors (low urine Na) - ARB and metfomin use prior to admission - contrast exposure x 2 (on 10/21 and 10/[address] scans) - acute infection (cholecystitis) - relative hypotension kidney function continues to decline almost anuric at this time trial of high dose diuretics unsuccessful HD catheter in place -- will initiate renal replacement therapy/dialysis today (2) Chronic kidney disease, stage III (moderate): Code(s): N18.3 - Chronic kidney disease, stage 3 (moderate) Status: Acute Assessment and Plan: baseline creatinine ~ 1.2 - 1.5mg/dl presumably due to DM, HTN, SOPHY, and age-related disease (3) Hyponatremia: Code(s): E87.1 - Hypo-osmolality and hyponatremia Status: Acute Assessment and Plan: suspect due to GUSTABO/ARF trial of IVFs given concerns of volume depletion but no change in sodium and remais almost anuric placed on fluid restriction but not sure how help this will be follow trend with dialysis (4) Acute cholecystitis: Code(s): K81.0 - Acute cholecystitis Status: Acute Assessment and Plan: s/p laparoscopic cholecystectomy Surgery following (5) Acute respiratory failure with hypoxia: Code(s): J96.01 - Acute respiratory failure with hypoxia Status: Acute Assessment and Plan: probably due to fluid retention and SOPHY/pulmonary hypertension follow respiratory status closely no real response with IV diuretic trial fluid removal with HD today (6) Diabetes: Code(s): E11.9 - Type 2 diabetes mellitus without complications Status: Acute Assessment and Plan: follow accuchecks on Lantus and SSI Another long and extensive discussion (> 20 minutes) with regarding his above issues particularly his worsening kidney function coupled with associated possible uremia, fluid overload, and acidosis. Hopefully, dialysis will help improve theses symptoms. Will continue to follow. Subjective Date/time seen: 10/29/19 12:24 Right femoral HD catheter placed by Surgery just recently; will proceed with dialysis today; minimal urine output with trial of high dose IV diuretics; requiring more oxygen with noted worsening of acidosis as well; discussed case with at bedside again. Exam Narrative: Exam Narrative: General: WD/WN male in NAD Heart: normal S1 and S2; no rub Lungs: coarse Abdomen: soft, some TTP but + BS Extremities: no cyanosis or clubbing; trace edema Skin: warm and dry Objective Data Vital Signs Vital Signs: Vital Signs Temp Pulse Resp BP Pulse Ox 10/29/19 08:00 78 10/29/19 07:37 36.6 C 79 20 118/51 L 93 10/29/19 04:00 79 10/29/19 01:42 36.2 C L 76 22 H 121/56 L 88 L 10/29/19 00:00 70 10/28/19 22:00 36.2 C L 72 20 116/51 L 95 10/28/19 20:51 95 10/28/19 20:48 71 18 95 10/28/19 20:00 71 10/28/19 18:00 36.2 C L 77 20 152/70 H 96 10/28/19 16:00 69 10/28/19 14:40 71 24 H 96 10/28/19 14:00 36.4 C L 71 20 101/86 94 Intake/Output Intake/Output: Intake & Output 10/26/19 10/27/19 10/28/19 10/29/19 23:59 23:59 23:59 23:59 Intake Total 3120 1720 3096 100 Output Total 725 150 200 170 Balance 2395 1570 2896 -70 Meds/Results Medications: Active Medications Generic Name Dose Route Start Last Admin Trade Name Freq PRN Reason Stop Dose Admin Acetaminophen 1,000 mg 10/25/19 16:42 Tylenol Tablet PO Q6H PRN Mild Pain (1-3) or Fever Hydrocodone Bitart/Acetaminophen 1 tab 10/25/19 16:39 [place] 5-325 Mg PO Q6H PRN Pain Rated 4-6 Hydrocodone Bitart/Acetaminophen 1 tab 10/25/19 16:42 [place] 7.5-325 Mg PO Q6H PRN Pain Rate
--- NOTE | 2019-10-29 14:50 | PM.IMPN ---
Progress Note: A&P Assessment and Plan (1) Acute cholecystitis: Code(s): K81.0 - Acute cholecystitis Status: Acute Assessment and Plan: POD#4 lap cholecystectomy.. Op note described gangrenous changes and friable tissue; pt is on IV zosyn (day 5). Zosyn is completed. (2) Acute respiratory failure with hypoxia: Code(s): J96.01 - Acute respiratory failure with hypoxia Status: Acute Assessment and Plan: Pt is on BIPAP for respiratory distress and labored breathing yesterday appears more stable today, oxygen 2 liters in the day and BIPAP at night. Echocardiogram reviewed and shows good systolic function EF 65-75%, grade I diastolic dysfunction. CTA 10/22 shows no PE or other acute findings for that matter. Pt will need assessment for SOPHY as outpatient,Obese large neck and COPD Albuterol treatments started (3) GUSTABO (acute kidney injury): Code(s): N17.9 - Acute kidney failure, unspecified Status: Acute Assessment and Plan: No clear etiology , probably due to overdiuresis.Contrast dye. DM, post op PH 7.228, creat 8.5 from 6.9 from 4.9 sodium is 118. Communicated with nephrology ?dialysis today first round Creat is worsening pt will benefit from dialysis pt for sumeet catheter today and first round of dialysis (4) Type 2 diabetes mellitus with other skin complications: Code(s): E11.628 - Type 2 diabetes mellitus with other skin complications Status: Acute Assessment and Plan: Continue ISS and add low dose long acting insulin q am. (5) Essential (primary) hypertension: Code(s): I10 - Essential (primary) hypertension Status: Acute Assessment and Plan: Hold his ARB and lasix given the GUSTABO (6) Hyperlipidemia LDL goal <70: Code(s): E78.5 - Hyperlipidemia, unspecified Status: Acute Assessment and Plan: Maintained on home statin therapy. (7) Hyponatremia: Code(s): E87.1 - Hypo-osmolality and hyponatremia Status: Acute Assessment and Plan: Was previously diuresed with home chlorthalidone and additional IV lasix due to lower extremity edema. Hold diuretics hyponatremia (8) Suspected sleep apnea: Code(s): R29.818 - Other symptoms and signs involving the nervous system Status: Acute Assessment and Plan: . Pt is on BIPAP, Consulted DR Baldwin, pulmunology. For recommendations Subjective Date/time seen: 10/29/19 14:50 Interval history: Mr. Castaneda is an 84yo M admitted with acute cholecystitis and acute respiratory failure with hypoxia. Pt is on BIPAP presently. Pt POD day 4. Pt has been having some labored breathing today started on BIPAP yesterday And albuterol treatments. ? early COPD with sleep apnea ? metabolic acidosis from kidneys Pt is also being worked up for ARF and is sp cholecystitis CReat is worsening pt will benefit from dialysis pt for sumeet catheter today and first round of dialysis Review of Systems Review of Systems: All systems reviewed & are unremarkable except as noted in HPI and below Cardiovascular: Cardiovascular: Reports dyspnea Respiratory: Respiratory: Reports dyspnea Gastrointestinal: Gastrointestinal: Reports bloating, Reports constipation, Denies diarrhea and Denies vomiting Exam Const: General: comfortable and no acute distress Other: Obese on BIPAP Resp: Effort & Inspection: normal respiratory effort Auscultation: clear to auscultation bilaterally Cardio: Rate: regular rate Rhythm: regular rhythm GI: Auscultation: normal bowel sounds Other: Obese abdomen with prominent umbilical hernia, small incision healing nicely. BS present Skin: General skin exam: no rashes or lesions noted Neuro: Speech: normal speec
--- NOTE | 2019-10-29 15:29 | PC.NURSE ---
PT to dialysis via hospital bed.
--- NOTE | 2019-10-29 17:00 | PC.NURSE ---
I was called to dialysis due to pt's aggressive behavior and refusal of dialysis. Pt was taking oxygen off and physically aggressive when trying to reinforce oxygen. Informed nephrology of dialysis refusal. Hospitalist informed of refusal and agitation and MD ordered IV ativan. The pt, when tolerating, is on 6L HF and would not tolerate ativan well due to oxygen demand at this time, MD aware. Returned patient from dialysis to hospital room and attempted to replace oxygen. Pt continued to refuse but was becoming weaker so we placed the patient on his BIPAP. Pt then rested with BIPAP on comfortably, oxygen levels stable at this time.
[2019-10-29 17:35] LABS: Glucose Point of Care 103 (65-105)
[2019-10-29] MEDS: ALPRAZolam 0.5 MG TABLET PO (19:55)
[2019-10-29 22:45] LABS: Glucose Point of Care 101 (65-105)
[2019-10-30] VITALS (18 sets, daily range): BP systolic 116–154; BP diastolic 45–90; PULSE 62–88; RESP 12–27; TEMP 36–36.6; O2SAT 90–100
[2019-10-30 04:36] LABS: Osmolality, Urine 421 mOsm/kg (50-1200)
[2019-10-30 04:41] LABS: Hemoglobin 10.4 g/dL (14.0-18.0); Mean Corpuscular HGB Conc 34.7 g/dl (32-36); Mean Corpuscular Hemoglobin 31.6 pg (26-34); Mean Corpuscular Volume 91.2 fl (80-100); Mean Platelet Volume 10.9 fl (7.4-10.4); Platelet Count Result 209 k/mm3 (150-375); Red Blood Count 3.29 M/mm3 (4.6-6.20); Red Cell Distribution Width 12.5 % (11.5-14.5); White Blood Count 10.6 K/mm3 (4.5-10.0)
[2019-10-30 04:57] LABS: Alveolar/Arterial O2 Gradient 220.9 mmHg; Base Excess ABG -8.5 mEq/l (+/-2.0); Fractional Inspired Oxygen 50 %; HCO3 ABG 20.3 mEq/l (22.0-26.0); Oxygen Content ABG 14.7 %vol (16.0-22.0); Oxygen Saturation ABG 89.4 % (95.0-100.0); Oxyhemoglobin 90.3 % THb (90.0-100.0); PCO2 ABG 57.4 mmHg (35.0-45.0); PO2 FiO2 Ratio Arterial Blood 1.42 %; Total Hemoglobin 11.5 g/dL (12.0-18.0)
[2019-10-30 04:58] LABS: Modified Allen's Test Pass; Site Drawn LEFT RADIAL; pH ABG 7.167 (7.350-7.450)
[2019-10-30 04:59] LABS: Device HIGH FLOW NASAL CANN
[2019-10-30 05:21] LABS: Blood Urea Nitrogen 95 mg/dL (9-20); Calcium 7.2 mg/dL (8.4-10.2); Carbon Dioxide 18 mmol/L (22-30); Chloride 82 mmol/L (98-107); Estimated CRCL calculation 7 ml/min; Estimated Glomerular Filt Rate 5; Glucose 88 mg/dL (75-110); Potassium 4.9 mmol/L (3.4-5.0); Sodium 119 mmol/L (137-145)
[2019-10-30 08:04] LABS: Glucose Point of Care 113 (65-105)
[2019-10-30] MEDS: amLODIPine BESYLATE 5 MG TABLET PO (08:29)
[2019-10-30] MEDS: FAMOTIDINE 20 MG TABLET PO (08:29)
[2019-10-30] MEDS: ASPIRIN 81 MG ENTERIC TABLET PO (08:29)
[2019-10-30] MEDS: polyethylene glycoL 3350 17 GM POWD.PACK PO (08:29)
[2019-10-30] MEDS: DOCUSATE SODIUM 100 MG CAPSULE PO (08:29)
[2019-10-30] MEDS: ATORVASTATIN 40 MG TABLET PO (08:29)
[2019-10-30 08:30] LABS: Alveolar/Arterial O2 Gradient 172.2 mmHg; Fractional Inspired Oxygen 50 %; HCO3 ABG 18.7 mEq/l (22.0-26.0); Oxygen Saturation ABG 97.9 % (95.0-100.0); Oxyhemoglobin 96.8 % THb (90.0-100.0); PCO2 ABG 48.3 mmHg (35.0-45.0); Total Hemoglobin 11.6 g/dL (12.0-18.0)
[2019-10-30 08:34] LABS: Device BIPAP; Modified Allen's Test Pass; Site Drawn LEFT RADIAL; pH ABG 7.206 (7.350-7.450)
[2019-10-30 08:35] LABS: Expiratory Pressure 5 cmH2O; Inspiratory Pressure 15 cmH2O
--- NOTE | 2019-10-30 09:24 | PM.IMPN ---
Progress Note: A&P Assessment and Plan (1) Acute cholecystitis: Code(s): K81.0 - Acute cholecystitis Status: Acute Assessment and Plan: POD#5 lap cholecystectomy.. Op note described gangrenous changes and friable tissue; pt is on IV zosyn (day 5). Zosyn is completed. (2) Acute respiratory failure with hypoxia: Code(s): J96.01 - Acute respiratory failure with hypoxia Status: Acute Assessment and Plan: Pt is on BIPAP for respiratory distress and labored breathing needing continuous BIPAP presently, pt will be transferred to IMU I will add steroids IV for patient Echocardiogram reviewed and shows good systolic function EF 65-75%, grade I diastolic dysfunction. CTA 12 shows no PE or other acute findings for that matter. Pt will need assessment for SOPHY as outpatient,Obese large neck and COPD Albuterol treatments started ABG today reveiwed improved pt still acidoitic (3) GUSTABO (acute kidney injury): Code(s): N17.9 - Acute kidney failure, unspecified Status: Acute Assessment and Plan: No clear etiology , probably due to overdiuresis.Contrast dye. DM, post op PH 7.228, creat10 from 8.5 from 6.9 from 4.9 sodium is 118. Communicated with nephrology ?dialysis - first round Creat is worsening pt will benefit from dialysis pt had sumeet catheter and first round of dialysis today could not tolerate dialysis yesterday due to anxiety and SOB (4) Type 2 diabetes mellitus with other skin complications: Code(s): E11.628 - Type 2 diabetes mellitus with other skin complications Status: Acute Assessment and Plan: Continue ISS and add low dose long acting insulin q am. (5) Essential (primary) hypertension: Code(s): I10 - Essential (primary) hypertension Status: Acute Assessment and Plan: Hold his ARB and lasix given the GUSTABO (6) Hyperlipidemia LDL goal <70: Code(s): E78.5 - Hyperlipidemia, unspecified Status: Acute Assessment and Plan: Maintained on home statin therapy. (7) Hyponatremia: Code(s): E87.1 - Hypo-osmolality and hyponatremia Status: Acute Assessment and Plan: Was previously diuresed with home chlorthalidone and additional IV lasix due to lower extremity edema. Hold diuretics hyponatremia (8) Suspected sleep apnea: Code(s): R29.818 - Other symptoms and signs involving the nervous system Status: Acute Assessment and Plan: . Pt is on BIPAP for possible COPD excerbation, Consulted DR Baldwin, pulmunology. For recommendations. Pt will need OPD sleep study on discharge Pt transfered to [facility] Subjective Date/time seen: 10/30/19 09:24 Interval history: Mr. Castaneda is an 84yo M admitted with acute cholecystitis and acute respiratory failure with hypoxia. Pt is on BIPAP presently. Pt POD day 5, sp cholecystitis. Pt has been having some labored breathing been on BIPAP prn needing more BIPAP, And albuterol treatments. ? early COPD with sleep apnea ? metabolic acidosis from kidneys Pt is also being worked up for ARF and CReat is worsening at 10 today, pt will benefit from dialysis pt had sumeet catheter yesterday awaiting first round of dialysis. Pt was too anxious yesterday for dialysis Review of Systems Review of Systems: All systems reviewed & are unremarkable except as noted in HPI and below ROS unobtainable: Yes other (restless, mild distress from breathing ) Respiratory: Respiratory: Denies cough, Reports dyspnea and Reports dyspnea on exertion Exam Const: Other: Obese on BIPAP, uncomfortable, restless, decreased mentation Resp: Effort & Inspection: respiratory distress (on BIPAP uncomfortable ) Cardio: Rate: regular rate Rhythm: regular rhyt
--- NOTE | 2019-10-30 09:34 | PC.NURSE ---
Spoke with Dr Sheets and Caroline, both are aware that this patient has dialysis orders for today. Caroline to contact hospital for treatment.
--- NOTE | 2019-10-30 09:48 | PC.NURSE ---
This patient, Braulio Castaneda, was received from [facility] on 10/30/19 at 0941. Personal belongings list checked and signed. Patient/family oriented to unit policies and routines
--- NOTE | 2019-10-30 09:49 | PC.NURSE ---
This patient, Braulio Castaneda, was transferred to IMU 205 on 10/30/19 at 0950. Personal belongings sent with patient. Belongings list checked and signed with receiving unit. Report given to Arely SAEED. Appropriate documentation sent with patient.
[2019-10-30 10:31] LABS: Blood Urea Nitrogen 98 mg/dL (9-20); Calcium 7.4 mg/dL (8.4-10.2); Carbon Dioxide 19 mmol/L (22-30); Chloride 81 mmol/L (98-107); Estimated CRCL calculation 7 ml/min; Estimated Glomerular Filt Rate 5; Glucose 94 mg/dL (75-110); Potassium 5.3 mmol/L (3.4-5.0); Sodium 120 mmol/L (137-145)
--- NOTE | 2019-10-30 10:49 | PC.NURSE ---
This patient, Braulio Castaneda, was transferred to Dialysis on 10/30/19 at 1034.
--- NOTE | 2019-10-30 14:05 | PM.PNNEP ---
Progress Note: A&P Assessment and Plan (1) GUSTABO (acute kidney injury): Code(s): N17.9 - Acute kidney failure, unspecified Status: Acute Assessment and Plan: multifactorial ATN: - prerenal factors (low urine Na) - ARB and metfomin use prior to admission - contrast exposure x 2 (on 10/21 and 10/[address] scans) - acute infection (cholecystitis) - relative hypotension kidney function continues to decline almost anuric at this time trial of high dose diuretics unsuccessful HD today but suboptimal treatment given issues with femoral HD catheter will ask Surgery to place neck/IJ HD catheter (tunneled) as I suspect will need dialysis for a while and reliable access for a while somewhat concerned about his ongoing acidosis along with his respiratory status and mentation (able to protect airway?) (2) Chronic kidney disease, stage III (moderate): Code(s): N18.3 - Chronic kidney disease, stage 3 (moderate) Status: Acute Assessment and Plan: baseline creatinine ~ 1.2 - 1.5mg/dl presumably due to DM, HTN, SOPHY, and age-related disease (3) Hyponatremia: Code(s): E87.1 - Hypo-osmolality and hyponatremia Status: Acute Assessment and Plan: suspect due to GUSTABO/ARF trial of IVFs given concerns of volume depletion but no change in sodium and remais almost anuric placed on fluid restriction but not sure how helpful this will be follow trend with dialysis (4) Acute cholecystitis: Code(s): K81.0 - Acute cholecystitis Status: Acute Assessment and Plan: s/p laparoscopic cholecystectomy Surgery following (5) Acute respiratory failure with hypoxia: Code(s): J96.01 - Acute respiratory failure with hypoxia Status: Acute Assessment and Plan: probably due to fluid retention and SOPHY/pulmonary hypertension follow respiratory status closely no real response with IV diuretic trial fluid removal with HD today (6) Diabetes: Code(s): E11.9 - Type 2 diabetes mellitus without complications Status: Acute Assessment and Plan: follow accuchecks on Lantus and SSI Will continue to follow. Subjective Date/time seen: 10/30/19 13:30 Unable to get dialysis yesterday due to agitation and anxiety issues despite multiple intervention; tolerating dialysis at the time of my visit (sleeping with BiPAP in place - seen on HD at ~ 1:15PM) but femoral HD catheter not working very well (constant alarms and suboptimal blood flows...); not very responsve to verbal/physical stimuli at the time of my visit Exam Narrative: Exam Narrative: General: WD/WN male in NAD; BiPAP in place Heart: normal S1 and S2; no rub Lungs: coarse breath sounds throughout Abdomen: soft, some TTP but + BS Extremities: no cyanosis or clubbing; trace edema Skin: warm and intact Objective Data Vital Signs Vital Signs: Vital Signs Temp Pulse Resp BP Pulse Ox 10/30/19 11:00 16 10/30/19 10:00 36.6 C 67 22 H 154/66 H 10/30/19 08:00 71 10/30/19 07:10 83 24 H 92 10/30/19 06:00 36.4 C L 73 24 H 139/53 L 90 10/30/19 05:18 83 24 H 92 10/30/19 04:00 36.2 C L 74 20 120/76 97 10/30/19 00:00 36.4 C 72 18 124/90 90 10/29/19 20:00 36.4 C 78 20 122/62 94 10/29/19 17:00 36.3 C L 79 21 H 139/73 92 10/29/19 16:00 82 10/29/19 14:20 36.4 C L 74 25 H 145/53 H 95 Intake/Output Intake/Output: Intake & Output 10/27/19 10/28/19 10/29/19 10/30/19 23:59 23:59 23:59 23:59 Intake Total 1720 3096 440 200 Output Total 150 200 420 200 Balance 1570 2896 20 0 Meds/Results Medications: Active Medications Generic Name Dose Route Start Last Admin Trade Name Freq PRN Reason Stop Dose Admin Acetaminophen 1,000 mg 10/25/19 16:42 Tylenol Tablet PO Q6H PRN Mild Pain (1-3) or Fever Hydrocodone Bitart/Acetaminophen 1 tab 10/25/19 16:39 [place] 5-325
[2019-10-30 15:12] LABS: Alveolar/Arterial O2 Gradient 181.4 mmHg; Base Excess ABG -9.1 mEq/l (+/-2.0); Fractional Inspired Oxygen 50 %; HCO3 ABG 18.9 mEq/l (22.0-26.0); Oxygen Content ABG 15.2 %vol (16.0-22.0); Oxygen Saturation ABG 97.4 % (95.0-100.0); Oxyhemoglobin 95.9 % THb (90.0-100.0); PCO2 ABG 50.6 mmHg (35.0-45.0); PO2 ABG 118.2 mmHg (80.0-100.0); PO2 FiO2 Ratio Arterial Blood 2.36 %; Total Hemoglobin 11.1 g/dL (12.0-18.0)
[2019-10-30 15:15] LABS: Device BIPAP; Modified Allen's Test Pass; Site Drawn LEFT RADIAL; pH ABG 7.191 (7.350-7.450)
[2019-10-30 15:16] LABS: Expiratory Pressure 5 cmH2O; Inspiratory Pressure 15 cmH2O
[2019-10-30 15:50] LABS: Glucose Point of Care 100 (65-105)
--- NOTE | 2019-10-30 16:39 | PC.NURSE ---
Called at 1614 to inform him of 1503 Blood Gas results per 's request. stated he will speak to in order to see if there could be some other option before the decision made to intubate the patient. Patient is oliguric, so thoughts are that a Bicarb drip will not be very benefitial. Will continue to monitor while waiting for any new orders.
[2019-10-30 16:44] LABS: Glucose Point of Care 98 (65-105)
[2019-10-30] MEDS: methylPREDNISolone SOD SUCC 125 MG VIAL 60 MG IV PUSH (16:45)
[2019-10-30] MEDS: SODIUM BICARBONATE 8.4% 100 MEQ in DEXTROSE 5% 1,000 ML 1,000 ML 50 MEQ IV CONT (18:04)
[2019-10-30 20:15] LABS: Alveolar/Arterial O2 Gradient 178.5 mmHg; Base Excess ABG -10.1 mEq/l (+/-2.0); Carboxyhemoglobin 0.3 % THb (0-2.0); Fractional Inspired Oxygen 50 %; Methemoglobin ABG 0.5 %THb (0-1.5); Oxygen Content ABG 16.3 %vol (16.0-22.0); Oxygen Saturation ABG 95.5 % (95.0-100.0); Oxyhemoglobin 95.9 % THb (90.0-100.0); PO2 ABG 104.4 mmHg (80.0-100.0); PO2 FiO2 Ratio Arterial Blood 2.09 %; Reduced Hemoglobin 3.3 %THb (0-5.0)
[2019-10-30 20:17] LABS: pH ABG 7.104 (7.350-7.450)
[2019-10-30 20:18] LABS: Device NON-INVASIVE VENT; Modified Allen's Test Pass; Non-Invasive Expiratory Pressure 5 CMH2O; Non-Invasive Inspiratory Pressure 15 CMH2O; Non-Invasive Vent Rate 8 /MIN; PCO2 ABG 65.4 mmHg (35.0-45.0); Site Drawn RIGHT RADIAL
[2019-10-30 20:47] LABS: Glucose Point of Care 134 (65-105)
[2019-10-30 23:25] LABS: Alveolar/Arterial O2 Gradient 142.6 mmHg; Base Excess ABG -11.2 mEq/l (+/-2.0); Fractional Inspired Oxygen 45 %; HCO3 ABG 19.7 mEq/l (22.0-26.0); Oxygen Content ABG 16.1 %vol (16.0-22.0); Oxygen Saturation ABG 94.2 % (95.0-100.0); Oxyhemoglobin 94.5 % THb (90.0-100.0); PO2 ABG 98.4 mmHg (80.0-100.0); PO2 FiO2 Ratio Arterial Blood 2.19 %; pH ABG 7.065 (7.350-7.450)
[2019-10-30 23:26] LABS: Device NON-INVASIVE VENT; Modified Allen's Test Pass; PCO2 ABG 70.2 mmHg (35.0-45.0); Site Drawn RIGHT RADIAL
[2019-10-30 23:27] LABS: Non-Invasive Expiratory Pressure 10 CMH2O; Non-Invasive Inspiratory Pressure 20 CMH2O; Non-Invasive Vent Rate 8 /MIN
--- NOTE | 2019-10-30 23:32 | PC.NURSE ---
Called , Elizabeth, to let her know that pt is not improving on the bipap and that he will be intubated. Dr Sierra also spoke to her to explain. is tearful
[2019-10-30] MEDS: RAPID SEQUENCE INTUBATION KIT 1 EACH (23:55)
[2019-10-31] VITALS (42 sets, daily range): BP systolic 89–140; BP diastolic 45–59; PULSE 60–85; RESP 19–22; TEMP 35.5–37; O2SAT 92–100; BMI 43.4
--- NOTE | 2019-10-31 00:21 | PC.NURSE ---
This patient, Braulio Castaneda, was transferred to [ icu 8] on 10/30/19 at 2340 for worsening respiratory status requiring intubation. notified of transfer and pending intubation. Personal belongings sent with patient. Report given to [Melba Romo ]. Appropriate documentation sent with patient.
--- NOTE | 2019-10-31 00:33 | WPDPROCEDUR ---
Procedures Intubation Intubation Date: 10/30/19 Intubation Time: 23:30 A pre-procedural Time-Out was completed immediately before starting the procedure and confirmed: Patient Identification, Site, Procedure, Patient Position and the Availability of Requisite Equipment: Yes Sedative: etomidate Mg given: 10 Paralytic: rocuronium Mg given: 75 Laryngoscope: fiber optic video scope ET tube size: 8 Tube secured depth (cm): 26 Tube secured location: teeth Tube placement confirmation: visualized tube passing through cords, equal breath sounds bilaterally, no breath sounds over epigastrium and confirmation by capnometry Patient tolerated procedure: well Intubation complications: none Additional comments: Date of service of procedure was 10/30/2019 at 23:30 hrs.
--- NOTE | 2019-10-31 00:34 | WPDPROCEDUR ---
Procedures Central Line Placement Right IJ: Central Line Date: 10/31/19 Central Line Time: 00:35 The patient/family/POA understand(s) and acknowledge(s) the need to proceed with central venous catheter insertion as an important element of the patient's clinical management.: Yes Time Out Performed: Yes Patient Position: supine Patient placed on monitor/pulse ox: Yes Provider Prep: mask, sterile gown, sterile gloves, Max. sterile barrier precautions, cap and hand hygiene Central line prep: Povidone-Iodine 1% Sterile Ultrasound Technique used for placement: Yes Central line lumen inserted: triple Cameroonian: 7 Length (cm): 17 Depth of Insertion (cm): 16 Post procedure: sutured in place, good blood return, all ports aspirated, flushed, capped, tegaderm, hemostatic disc and aseptic technique maintained throughout procedure Post procedure x-ray: tip of catheter in good position Patient tolerated procedure: well and no complications Complications: none Additional comments: Date of Service was 10/31/2019 at 00:10
--- NOTE | 2019-10-31 00:53 | PC.NURSE ---
This patient, Braulio Castaneda, was received from [ [id number]] on 10/31/19 at 2250. Personal belongings list checked and signed. Patient/family oriented to unit policies and routines
[2019-10-31] MEDS: methylPREDNISolone SOD SUCC 125 MG VIAL 60 MG IV PUSH ×4 (01:02→17:44)
--- NOTE | 2019-10-31 01:11 | PC.NURSE ---
Patient's , Elizabeth, called and given update and permission obtained for central line. denies any further questions. Requesting that she be allowed to bring their 2 children in tomorrow to see patient. Instructed on current covid visiting hours. states understanding.
[2019-10-31 01:17] LABS: Alveolar/Arterial O2 Gradient 411.5 mmHg; Base Excess ABG -11.4 mEq/l (+/-2.0); Carboxyhemoglobin 0.3 % THb (0-2.0); Fractional Inspired Oxygen 100 %; HCO3 ABG 15.7 mEq/l (22.0-26.0); Methemoglobin ABG 0.5 %THb (0-1.5); Oxygen Content ABG 16.8 %vol (16.0-22.0); Oxygen Saturation ABG 99.5 % (95.0-100.0); Oxyhemoglobin 98.1 % THb (90.0-100.0); PCO2 ABG 39.3 mmHg (35.0-45.0); PO2 ABG 262.2 mmHg (80.0-100.0); PO2 FiO2 Ratio Arterial Blood 2.62 %; Reduced Hemoglobin 1.1 %THb (0-5.0); Total Hemoglobin 11.7 g/dL (12.0-18.0)
[2019-10-31 01:20] LABS: Device VENTILATOR; Modified Allen's Test Pass; Site Drawn RIGHT RADIAL; pH ABG 7.218 (7.350-7.450)
[2019-10-31 01:21] LABS: Arterial Blood Gas PEEP 5 cmH2O; Arterial Blood Gas Tidal Volume 550 ml; Arterial Blood Gas Vent Mode CMV; Arterial Blood Gas Ventilator rate 19 /MIN
--- NOTE | 2019-10-31 06:06 | PM.EVENT ---
Event Note Event Note Event Note: Transfer Note Nursing staff alerted me that this 84 year old male s/p lap cholecystectomy who is being treated for acute respiratory failure on Bipap has been comatose since earlier this evening. On my arrival to bedside the patient is poorly responsive to any stimuli. I maxed out his settings on his Bipap and obtained a repeat ABG which demonstrated that his hypercapnia had not improved and instead had worsened. We obtained oral consent for intubation from the pateint's . I consuled our Superintendent Laundry, Dr. Yepez and discussed the case in detail with him. The patient was transferred to the ICU, intubated and placed on mechanical ventilation. I will continue to monitor overnight and check another ABG.
[2019-10-31 06:25] LABS: Hematocrit 30.3 % (42.0-52.0); Hemoglobin 10.4 g/dL (14.0-18.0); Mean Corpuscular HGB Conc 34.3 g/dl (32-36); Mean Corpuscular Hemoglobin 31.3 pg (26-34); Mean Corpuscular Volume 91.3 fl (80-100); Mean Platelet Volume 10.2 fl (7.4-10.4); Platelet Count Result 214 k/mm3 (150-375); Red Blood Count 3.32 M/mm3 (4.6-6.20); Red Cell Distribution Width 12.3 % (11.5-14.5); White Blood Count 6.3 K/mm3 (4.5-10.0)
[2019-10-31 06:44] LABS: Blood Urea Nitrogen 90 mg/dL (9-20); Calcium 7.3 mg/dL (8.4-10.2); Carbon Dioxide 19 mmol/L (22-30); Chloride 82 mmol/L (98-107); Estimated CRCL calculation 7 ml/min; Estimated Glomerular Filt Rate 5; Glucose 266 mg/dL (75-110); Magnesium 2.1 mg/dL (1.6-2.3); Potassium 5.2 mmol/L (3.4-5.0); Sodium 121 mmol/L (137-145)
[2019-10-31 06:57] LABS: Phosphorus 12.5 mg/dL (2.5-4.5)
--- NOTE | 2019-10-31 07:43 | PC.NURSE ---
Dr. Mc exchange call regarding consult for dialysis cath placement and request for call back made.
--- NOTE | 2019-10-31 08:42 | P.PNNP_ITS ---
Progress Note: A&P Assessment and Plan (1) GUSTABO (acute kidney injury): Code(s): N17.9 - Acute kidney failure, unspecified Status: Acute Assessment and Plan: * multifactorial ATN: - prerenal factors (low urine Na) - ARB use prior to admission - contrast exposure x 2 (on 10/21 and 10/[address] scans) - acute infection (cholecystitis) - relative hypotension * Still not making very much urine. Only 75cc overnight. * he did not get a good very good dialysis yesterday. * Surgery has been consulted to place a different catheter for dialysis. * (2) Chronic kidney disease, stage III (moderate): Code(s): N18.3 - Chronic kidney disease, stage 3 (moderate) Status: Acute Assessment and Plan: * baseline creatinine ~ 1.2 - 1.5mg/dl * presumably due to DM, HTN, SOPHY, and age-related disease (3) Hyponatremia: Code(s): E87.1 - Hypo-osmolality and hyponatremia Status: Acute Assessment and Plan: * suspect due to GUSTABO/ARF * trial of IVFs given concerns of volume depletion but no change in sodium and remais almost anuric * placed on fluid restriction but not sure how helpful this will be * follow trend with dialysis (4) Acute cholecystitis: Code(s): K81.0 - Acute cholecystitis Status: Acute Assessment and Plan: * s/p laparoscopic cholecystectomy * afebrile. White blood cell count is fine. * Surgery following (5) Acute respiratory failure with hypoxia: Code(s): J96.01 - Acute respiratory failure with hypoxia Status: Acute Assessment and Plan: * probably due to fluid retention and SOPHY/pulmonary hypertension * On the ventilator. * Chest x-ray Shows some fluid. * will remove fluid with dialysis today once he has a catheter in. (6) Diabetes: Code(s): E11.9 - Type 2 diabetes mellitus without complications Status: Acute Assessment and Plan: * follow accuchecks * on Lantus and SSI Will continue to follow. (7) Acidosis: Code(s): E87.2 - Acidosis Status: Acute Assessment and Plan: CO2 is better. He is on a bicarb drip. This can probably stop once he is done with his dialysis. Discussed at length with Dr. Yepez. Additional Plan Subjective Date/time seen: 10/31/19 08:42 Interval history: the patient is on the ventilator. He is sedated with midazolam and fentanyl. He looks comfortable. Review of Systems Review of Systems: ROS unobtainable: Yes unobtainable due to endotracheal tube Exam Narrative: Exam Narrative: General: WD/WN male in NAD; BiPAP in place Heart: normal S1 and S2; no rub Lungs: coarse breath sounds throughout Abdomen: soft, some TTP but + BS Extremities: no cyanosis or clubbing; trace edema Skin: No rash Objective Data Vital Signs Vital Signs: Vital Signs - 24 hr 10/30/19 10:00 10/30/19 11:00 10/30/19 12:00 Temperature 36.6 C Pulse Rate 67 73 Respiratory Rate 22 H 16 Blood Pressure 154/66 H Pulse Oximetry 10/30/19 14:00 10/30/19 16:00 10/30/19 18:00 Temperature 36.0 C L 36.2 C L Pulse Rate 88 73 66 Respiratory Rate 27 H 26 H Blood Pressure 140/65 121/53 L Pulse Oximetry 99 100 10/30/19 19:41 10/30/19
--- NOTE | 2019-10-31 08:42 | PM.PNNEP ---
Progress Note: A&P Assessment and Plan (1) GUSTABO (acute kidney injury): Code(s): N17.9 - Acute kidney failure, unspecified Status: Acute Assessment and Plan: multifactorial ATN: - prerenal factors (low urine Na) - ARB use prior to admission - contrast exposure x 2 (on 10/21 and 10/[address] scans) - acute infection (cholecystitis) - relative hypotension Still not making very much urine. Only 75cc overnight. he did not get a good very good dialysis yesterday. Surgery has been consulted to place a different catheter for dialysis. (2) Chronic kidney disease, stage III (moderate): Code(s): N18.3 - Chronic kidney disease, stage 3 (moderate) Status: Acute Assessment and Plan: baseline creatinine ~ 1.2 - 1.5mg/dl presumably due to DM, HTN, SOPHY, and age-related disease (3) Hyponatremia: Code(s): E87.1 - Hypo-osmolality and hyponatremia Status: Acute Assessment and Plan: suspect due to GUSTABO/ARF trial of IVFs given concerns of volume depletion but no change in sodium and remais almost anuric placed on fluid restriction but not sure how helpful this will be follow trend with dialysis (4) Acute cholecystitis: Code(s): K81.0 - Acute cholecystitis Status: Acute Assessment and Plan: s/p laparoscopic cholecystectomy afebrile. White blood cell count is fine. Surgery following (5) Acute respiratory failure with hypoxia: Code(s): J96.01 - Acute respiratory failure with hypoxia Status: Acute Assessment and Plan: probably due to fluid retention and SOPHY/pulmonary hypertension On the ventilator. Chest x-ray Shows some fluid. will remove fluid with dialysis today once he has a catheter in. (6) Diabetes: Code(s): E11.9 - Type 2 diabetes mellitus without complications Status: Acute Assessment and Plan: follow accuchecks on Lantus and SSI Will continue to follow. (7) Acidosis: Code(s): E87.2 - Acidosis Status: Acute Assessment and Plan: CO2 is better. He is on a bicarb drip. This can probably stop once he is done with his dialysis. Discussed at length with Dr. Yepez. Additional Plan Subjective Date/time seen: 10/31/19 08:42 Interval history: the patient is on the ventilator. He is sedated with midazolam and fentanyl. He looks comfortable. Review of Systems Review of Systems: ROS unobtainable: Yes unobtainable due to endotracheal tube Exam Narrative: Exam Narrative: General: WD/WN male in NAD; BiPAP in place Heart: normal S1 and S2; no rub Lungs: coarse breath sounds throughout Abdomen: soft, some TTP but + BS Extremities: no cyanosis or clubbing; trace edema Skin: No rash Objective Data Vital Signs Vital Signs: Vital Signs - 24 hr 10/30/19 10:00 10/30/19 11:00 10/30/19 12:00 Temperature 36.6 C Pulse Rate 67 73 Respiratory Rate 22 H 16 Blood Pressure 154/66 H Pulse Oximetry 10/30/19 14:00 10/30/19 16:00 10/30/19 18:00 Temperature 36.0 C L 36.2 C L Pulse Rate 88 73 66 Respiratory Rate 27 H 26 H Blood Pressure 140/65 121/53 L Pulse Oximetry 99 100 10/30/19 19:41 10/30/19 20:00 10/30/19 20:36 Temperature 36.1 C L Pulse Rate 71 68 69 Respiratory Rate 20 15 Blood Pressure 136/52 L Pulse Oximetry 98 92 10/30/19 22:00 10/30/19 22:25 10/30/19 23:30 Temperature 36.1 C L Pulse Rate 71 71 67 Respiratory Rate 16 12 Blood Pressure 116/45 L Pulse Oximetry 93 90 10/31/19 00:00 10/31/19 02:00 10/31/19 02:03 Temperature 35.5 C L Pulse Rate 85 69 72 Respiratory Rate 19 19 Blood Pressure 140/57 L 137/54 L Pulse Oximetry 97 94 96 10/31/19 04:00 10/31/19 04:14 10/31/19 06:00 Temperature 36.5 C Pulse Rate 69 70 68 Respiratory Rate 19 19 Blood Pressure 115/52 L 107/55 L Pulse Oximetry 92 93 92 10/31/19 08:00 10/31/19 08:15 T
[2019-10-31] MEDS: ATORVASTATIN 40 MG TABLET PO (09:55)
[2019-10-31] MEDS: FAMOTIDINE 20 MG TABLET PO (09:55)
[2019-10-31] MEDS: amLODIPine BESYLATE 5 MG TABLET PO (09:55)
[2019-10-31] MEDS: ASPIRIN 81 MG ENTERIC TABLET PO (09:55)
[2019-10-31] MEDS: INSULIN GLARGINE (*BKC) 100 UNITS/ML 15 UNITS SUB-Q (09:56)
[2019-10-31] MEDS: polyethylene glycoL 3350 17 GM POWD.PACK PO (09:56)
[2019-10-31] MEDS: INSULIN ASPART (*BKC) 100 UNITS/ML SUB-Q ×2 (12:00→17:45)
[2019-10-31 12:19] LABS: Glucose Point of Care 263 (65-105)
--- NOTE | 2019-10-31 12:33 | WPDCNINT ---
Assessment and Plan Assessment and plan (1) Acute respiratory failure: Qualifiers: Respiratory failure complication: hypercapnia Qualified Code(s): J96.02 - Acute respiratory failure with hypercapnia Code(s): J96.00 - Acute respiratory failure, unspecified whether with hypoxia or hypercapnia Status: Acute Assessment and Plan: patient presented with hypercapnic respiratory failure most likely related to volume overload from acute on chronic kidney disease, could also be related to obstructive sleep apnea, obesity hypoventilation syndrome, pulmonary hypertension - Patient intubated on 10/30/2019: Remains on CMV mode of ventilation, peep of 5, 100% FiO2. Will decrease tidal volumes to avoid volutrauma, increased respiratory rate and decreased FiO2 - patient on fentanyl and Versed infusion for sedation, maintain RASS of 0 to -2, daily sedation vacation - continue bronchodilators (2) GUSTABO (acute kidney injury): Code(s): N17.9 - Acute kidney failure, unspecified Status: Acute Assessment and Plan: patient with history of chronic kidney disease stage 3, now with acute kidney injury requiring dialysis. Dialysis catheter was placed in the right femoral vein on 10/28, not functioning well, surgery replacing another dialysis catheter the left IJ - dialysis per Nephrology - patient with metabolic acidosis likely related to uremia - discussed with Nephrology, will discontinue bicarb infusion (3) Acute cholecystitis: Code(s): K81.0 - Acute cholecystitis Status: Acute Assessment and Plan: patient presented on 10/23/2019 with acute cholecystitis, status post laparoscopic cholecystectomy on 10/25/2019 surgery following the patient will start tube feeds today (4) Hyponatremia: Code(s): E87.1 - Hypo-osmolality and hyponatremia Status: Acute Assessment and Plan: hyponatremia likely related to hypovolemia secondary to volume overload due to acute on chronic kidney disease - patient to get dialyzed per Nephrology (5) Diabetes mellitus: Qualifiers: Diabetes mellitus complication status: with other specified complication Diabetes mellitus terminal superintendent insulin use: with terminal superintendent use Diabetes mellitus type: type 2 Qualified Code(s): E11.69 - Type 2 diabetes mellitus with other specified complication; Z79.4 - jail (current) use of insulin Code(s): E11.9 - Type 2 diabetes mellitus without complications Status: Acute Assessment and Plan: patient with history of time with neuropathy, skin issues and renal complications - continue Accu-Cheks, sliding scale and Lantus (6) DVT prophylaxis: Code(s): Z29.9 - Encounter for prophylactic measures, unspecified Status: Acute Assessment and Plan: DVT prophylaxis; will start SQ heparin stress ulcer prophylaxis: will DC famotidine given renal dysfunction and started on Protonix Additional Plan discussed with at bedside updated with patient's condition and plan of care. She stated that today is a 59 anniversary. I answered all questions. Also discuss code status and she requested patient be a full code will start tube feeds, will discontinue bicarb infusion code status: Full code critical care time spent: 49 minutes Due to a high probability of clinically significant, life threatening deterioration, the patient required my highest level of preparedness to intervene emergently and I personally spent this critical care time directly and personally managing the patient. This critical care time included obtaining a history; examining the patient; pulse oximetry; ordering and review of studies; arranging urgent treatment with development of a management plan; evaluation of patient's response to treatment; frequent reassessment; and discussions with other providers. It was exclusive of separately billable procedures and treating other patients and tea
[2019-10-31] MEDS: ALBUTEROL SULFATE NEB 2.5 MG/0.5 ML INH INHALATION ×2 (14:11→20:15)
[2019-10-31] MEDS: IPRATROPIUM BR 0.02% INH SOLN 0.5 MG/2.5 ML VIAL INHALATION ×2 (14:11→20:15)
[2019-10-31] MEDS: CENTRAL LINE FLUSH 10 ML IV PUSH ×3 (14:51→21:30)
--- NOTE | 2019-10-31 16:34 | PM.PROC ---
Procedure Note - Detailed Date of procedure: 10/31/19 Pre-op diagnosis: Acute on chronic renal failure, inadequate venous Post-op diagnosis: same Procedure performed: Insertion of left internal jugular Oscar hemodialysis catheter under ultrasound guidance Description of procedure: The patient was placed in the supine position, I was really unable to put him in Trendelenburg because the patient was having poor oxygen saturation. A time-out was then done to verify the patient's identity as well as the procedure being performed. I then prepped and draped the left neck in normal sterile fashion. Using the ultrasound device, I was able to identify the left internal jugular vein. I then localized the area in and around the vein. Once this was done, I gained access with an 18 gauge needle into the left internal jugular vein. The guidewire was then placed under sterile Seldinger technique into the left internal jugular. The needle was now removed just leaving the guidewire in the vein. I then made a small incision to enlarge the skin opening around the guidewire. I then placed the dilator over the guidewire into the left internal jugular vein. Once this was done, I was able to place the catheter over the guidewire into the left internal jugular vein. I then removed the guidewire, just leaving the catheter in the vein. I was able to easily draw and flush from both port sites. I then sutured the catheter in place. Sterile dressing including a Biopatch was placed. Implants: 20 cm Oscar dialysis catheter Anesthesia: local Surgeon: Poonam Mc MD Estimated blood loss (mL): 10 Drains: No Packing: No Pathology: none sent Complications: No immediate complications Condition: critical Disposition: ICU Findings: 1st stick access the left internal jugular vein under ultrasonic guidance
[2019-10-31] MEDS: MIDAZOLAM HCL 2 MG/2 ML VIAL (16:47)
--- NOTE | 2019-10-31 17:01 | PM.IMPN ---
Progress Note: A&P Assessment and Plan (1) Acute cholecystitis: Code(s): K81.0 - Acute cholecystitis Status: Acute Assessment and Plan: POD#6 lap cholecystectomy.. Op note described gangrenous changes and friable tissue; pt is on IV zosyn (day 5). Zosyn is completed. (2) Acute respiratory failure with hypoxia: Code(s): J96.01 - Acute respiratory failure with hypoxia Status: Acute Assessment and Plan: Pt is on BIPAP for respiratory distress and labored breathing needing continuous BIPAP presently, pt will be transferred to IMU I will add steroids IV for patient Echocardiogram reviewed and shows good systolic function EF 65-75%, grade I diastolic dysfunction. CTA 10/22 shows no PE or other acute findings for that matter. Pt will need assessment for SOPHY as outpatient,Obese large neck and COPD Albuterol treatments started ABG today reveiwed improved pt still acidoitic 10/31/19 17:01 85-year-old male status post cholecystectomy on 10/25/2019 chronic kidney disease stage 3 patient developed hypoxia and was emergently intubated, most likely secondary to volume overload as patient was hydrated for acute kidney injury not requiring dialysis, also possibly due to hypoventilation due to morbid obesity, remains intubated (3) GUSTABO (acute kidney injury): Code(s): N17.9 - Acute kidney failure, unspecified Status: Acute Assessment and Plan: No clear etiology , probably due to overdiuresis.Contrast dye. DM, post op PH 7.228, creat10 from 8.5 from 6.9 from 4.9 sodium is 118. Communicated with nephrology ?dialysis - first round Creat is worsening pt will benefit from dialysis pt had sumeet catheter and first round of dialysis today could not tolerate dialysis yesterday due to anxiety and SOB (4) Type 2 diabetes mellitus with other skin complications: Code(s): E11.628 - Type 2 diabetes mellitus with other skin complications Status: Acute Assessment and Plan: Continue ISS and add low dose long acting insulin q am. (5) Essential (primary) hypertension: Code(s): I10 - Essential (primary) hypertension Status: Acute Assessment and Plan: Hold his ARB and lasix given the GUSTABO (6) Hyperlipidemia LDL goal <70: Code(s): E78.5 - Hyperlipidemia, unspecified Status: Acute Assessment and Plan: Maintained on home statin therapy. (7) Hyponatremia: Code(s): E87.1 - Hypo-osmolality and hyponatremia Status: Acute Assessment and Plan: Was previously diuresed with home chlorthalidone and additional IV lasix due to lower extremity edema. Hold diuretics hyponatremia (8) Suspected sleep apnea: Code(s): R29.818 - Other symptoms and signs involving the nervous system Status: Acute Assessment and Plan: . Pt is on BIPAP for possible COPD excerbation, Consulted DR Baldwin, pulmunology. For recommendations. Pt will need OPD sleep study on discharge Pt transfered to [facility] Subjective Date/time seen: 10/31/19 17:01 85-year-old male status post cholecystectomy on 10/25/2019 chronic kidney disease stage 3 patient developed hypoxia and was emergently intubated, most likely secondary to volume overload as patient was hydrated for acute kidney injury not requiring dialysis, also possibly due to hypoventilation due to morbid obesity, remains intubated Review of Systems Review of Systems: ROS unobtainable: Yes unobtainable due to endotracheal tube Exam Narrative: Exam Narrative: morbidly obese on vent Const: General: comfortable and no acute distress HENMT: General nose exam: Normal nares present Eyes: Sclera: sclerae normal Neck: Neck: supple Resp: Other: bilateral poor air entry with
[2019-10-31] MEDS: HEPARIN SODIUM 5,000 UNITS/ML VIAL 5000 UNITS SUB-Q (17:44)
[2019-10-31 18:02] LABS: Glucose Point of Care 224 (65-105)
--- NOTE | 2019-10-31 20:03 | PM.PNPUL ---
Progress Note: A&P Assessment and Plan (1) Acute respiratory failure: Qualifiers: Respiratory failure complication: hypercapnia Qualified Code(s): J96.02 - Acute respiratory failure with hypercapnia Code(s): J96.00 - Acute respiratory failure, unspecified whether with hypoxia or hypercapnia Status: Acute Assessment and Plan: He has worsening hypercapnic and hypoxemic respiratory failure intubated overnight and moved to intensive care unit. This probably combination of renal failure with need for dialysis, just had a new left IJ catheter today for initiation of dialysis, now in CMV mode FiO2 100% with improvement in the pCO2. He is afebrile. CXR indicates increased bilateral pleural effusions likely due to volume overload and will need this watch carefully. This should improve with dialysis. - wean FiO2 as tolerated, - bronchdilators - normalize volume status and acid base status - monitor CXR Subjective Date/time seen: 10/31/19 20:03 This 84 yo man is seen in follow up for acute respiratory failure which evolved after his laparoscopic cholecystectomy on 10/24, in the setting of multiple medical problems. He was intubated overnight due to worsening hypercapnic respiratory failure now in the intensive care unit. Initial creatinine was not great 1.2 and today it is 9.9.. He had a new LIJ dialysis catheter placed today As his right femoral line was not working well. Review of Systems Review of Systems: ROS unobtainable: Yes unobtainable due to medical condition Exam Narrative: Exam Narrative: sedated with fentanyl and Versed low-dose Const: General: no acute distress HENMT: Head: normal to inspection General nose exam: Normal external nose present Face and sinus: normal facial exam Mouth: Yes other ( orally intubated) Eyes: General: appearance normal, both eyes and all related structures Neck: Neck: no JVD Resp: Auscultation: diminished lung sounds Cardio: Rate: regular rate Rhythm: regular rhythm Urinary Catheter: Urinary Catheter: patent and draining Skin: General skin exam: normal color Neuro: Speech: No normal speech Extrem: General: edema Objective Data Vital Signs Vital Signs: Vital Signs - 24 hr 10/30/19 20:36 10/30/19 22:00 10/30/19 22:25 Temperature Pulse Rate 69 71 71 Respiratory Rate 15 16 Blood Pressure Pulse Oximetry 92 93 10/30/19 23:30 10/31/19 00:00 10/31/19 02:00 Temperature 36.1 C L 35.5 C L Pulse Rate 67 85 69 Respiratory Rate 12 19 19 Blood Pressure 116/45 L 140/57 L 137/54 L Pulse Oximetry 90 97 94 10/31/19 02:03 10/31/19 04:00 10/31/19 04:14 Temperature 36.5 C Pulse Rate 72 69 70 Respiratory Rate 19 Blood Pressure 115/52 L Pulse Oximetry 96 92 93 10/31/19 06:00 10/31/19 08:00 10/31/19 08:15 Temperature 36.8 C Pulse Rate 68 68 68 Respiratory Rate 19 19 Blood Pressure 107/55 L 121/58 L Pulse Oximetry 92 95 94 10/31/19 10:00 10/31/19 11:02 10/31/19 11:59 Temperature 36.6 C Pulse Rate 70 71 66 Respiratory Rate 22 H 22 H Blood Pressure 125/55 L 98/55 L Pulse Oximetry 93 92 94 10/31/19 12:00 10/31/19 13:49 10/31/19 14:00 Temperature Pulse Rate 66 64 68 Respiratory Rate 22 H 22 H Blood Pressure 94/45 L Pulse Oximetry 93 92 10/31/19 14:13 10/31/19 15:23 10/31/19 16:00 Temperature 36.7 C Pulse Rate 67 67 73 Respiratory Rate 22 H 22 H 22 H Blood Pressure 106/48 L Pulse Oximetry 93 10/31/19 16:55 10/31/19 17:25 10/31/19 17:27 Temperature 36.6 C Pulse Rate 67 64 62 Respiratory Rate 22 H Blood Pressure 93/46 L 95/46 L Pulse Oximetry 97 97 10/31/19 17:30 10/31/19 17:45 10/31/19 17:50 Temperature Pulse Rate 61 61 60 Respiratory Rate 22 H Blood Pressure 113/54 L 105/52 L Pulse Oximetry 10/31/19 18:00 10/31/19 18:15 10/31/19 19:00 Temperature Pulse Rate 65 62 67
[2019-10-31 23:18] LABS: Glucose Point of Care 202 (65-105)
[2019-11-01] VITALS (33 sets, daily range): BP systolic 97–131; BP diastolic 50–69; PULSE 22–77; RESP 12–24; TEMP 36.6–37.1; O2SAT 89–95
--- NOTE | 2019-11-01 | ECHO_ITS ---
Patient Info Name: Braulio Castaneda Age: 84 years : 1935 Gender: Male Ht: 70 in Wt: 298 lbs BSA: 2.65 m2 HR: 64 bpm BP: 131 / 69 mmHg Heart Rhythm: Sinus Rhythm Technical Quality: Poor Exam Date: 11/01/2019 1:24 PM Exam Location: [facility] Pulmonary Patient Status: Inpatient Admit Date: 10/23/2019 Staff Ordering Physician: Angelia Yepez MD Food Quality Technician: Romi Byers RDCS Attending Provider: Kinjal Langley PA-C Referring Physician: Marleni MELGAR; Exam Type: CA echo dop color flow w con Study Info Indications - hypoxic - sepsis shock Complete two-dimensional, color flow and Doppler transthoracic echocardiogram is performed with contrast to opacify the left ventricle and to improve the deliniation of the left ventricle endocardial borders. Contrast/Agitated Saline Contrast/Ag. Saline: Definity Amount: 4.00 ml Reason for Poor Study: patient body habitus Summary 1. Left ventricular chamber dimension is normal. 2. Left ventricular systolic function is normal, estimated at 65-70%. 3. There is mildly increased left ventricular wall thickness. 4. Left ventricular septal wall motion is normal. 5. The left ventricular diastolic function is grade I diastolic dysfunction. 6. There is mild aortic valve calcification. 7. There is mild tricuspid valve regurgitation. 8. There is mild pulmonic regurgitation. Left Ventricle Left ventricular chamber dimension is normal. Left ventricular systolic function is normal, estimated at 65-70%. There is mildly increased left ventricular wall thickness. Left ventricular septal wall motion is normal. The left ventricular diastolic function is grade I diastolic dysfunction. Right Ventricle Right ventricular chamber dimension is normal. Right ventricular systolic function is normal. Left Atria Left atrial chamber dimension is normal. Right Atria Right atrial chamber dimension is normal. Atrial Septum Intact interatrial septum visualized by color flow imaging. Aortic Valve The aortic valve is trileaflet. There is no aortic valve stenosis. There is trace aortic valve regurgitation. There is mild aortic valve calcification. Pulmonic Valve The pulmonic valve is normal. There is no pulmonic valve stenosis. There is mild pulmonic regurgitation. Mitral Valve The mitral valve has thickened leaflets. There is no mitral valve stenosis. There is trace mitral valve regurgitation. Tricuspid Valve The tricuspid valve leaflets are normal. There is no significant tricuspid valve stenosis. There is mild tricuspid valve regurgitation. No pulmonary hypertension, estimated pulmonary arterial systolic pressure is 31 mmHg. Pericardium/Pleural The pericardium appears normal. There is no pericardial effusion. Inferior Vena Cava Normal inferior vena cava with >50% collapse upon inspiration consistent with normal right atrial pressure, 10 mmHg. Aorta The aortic root size at the sinus of Valsalva is normal. The prox ascending aorta size is normal. There is mild aortic atherosclerosis. Left Ventricular Outflow Tract Name Value Normal LVOT 2D LVOT Diameter 2.05
[2019-11-01] MEDS: INSULIN ASPART (*BKC) 100 UNITS/ML SUB-Q ×4 (00:02→17:59)
[2019-11-01] MEDS: methylPREDNISolone SOD SUCC 125 MG VIAL 60 MG IV PUSH ×4 (00:03→18:02)
[2019-11-01] MEDS: IPRATROPIUM BR 0.02% INH SOLN 0.5 MG/2.5 ML VIAL INHALATION ×3 (02:40→13:51)
[2019-11-01] MEDS: ALBUTEROL SULFATE NEB 2.5 MG/0.5 ML INH INHALATION ×3 (02:40→13:51)
[2019-11-01 04:09] LABS: Alveolar/Arterial O2 Gradient 529.3 mmHg; Base Excess ABG -5.4 mEq/l (+/-2.0); Carboxyhemoglobin 0.2 % THb (0-2.0); Fractional Inspired Oxygen 90 %; HCO3 ABG 19.4 mEq/l (22.0-26.0); Methemoglobin ABG 0.4 %THb (0-1.5); Oxygen Content ABG 14.6 %vol (16.0-22.0); Oxyhemoglobin 92.3 % THb (90.0-100.0); PO2 ABG 76.5 mmHg (80.0-100.0); PO2 FiO2 Ratio Arterial Blood 0.85 %; Reduced Hemoglobin 7.1 %THb (0-5.0); Total Hemoglobin 11.2 g/dL (12.0-18.0); pH ABG 7.361 (7.350-7.450)
[2019-11-01 04:10] LABS: Device VENTILATOR; Modified Allen's Test Pass; Site Drawn RIGHT RADIAL
[2019-11-01 04:11] LABS: Arterial Blood Gas PEEP 5 cmH2O; Arterial Blood Gas Tidal Volume 450 ml; Arterial Blood Gas Vent Mode CMV; Arterial Blood Gas Ventilator rate 22 /MIN
[2019-11-01 04:53] LABS: Hematocrit 27.9 % (42.0-52.0); Hemoglobin 9.9 g/dL (14.0-18.0); Mean Corpuscular HGB Conc 35.5 g/dl (32-36); Mean Corpuscular Hemoglobin 31.1 pg (26-34); Mean Corpuscular Volume 87.7 fl (80-100); Mean Platelet Volume 9.9 fl (7.4-10.4); Platelet Count Result 225 k/mm3 (150-375); Red Blood Count 3.18 M/mm3 (4.6-6.20); Red Cell Distribution Width 12.3 % (11.5-14.5); White Blood Count 9.9 K/mm3 (4.5-10.0)
[2019-11-01 05:14] LABS: Blood Urea Nitrogen 63 mg/dL (9-20); Calcium 7.5 mg/dL (8.4-10.2); Carbon Dioxide 23 mmol/L (22-30); Chloride 85 mmol/L (98-107); Estimated CRCL calculation 9 ml/min; Estimated Glomerular Filt Rate 7; Glucose 251 mg/dL (75-110); Magnesium 2.1 mg/dL (1.6-2.3); Phosphorus 9.2 mg/dL (2.5-4.5); Potassium 4.5 mmol/L (3.4-5.0); Sodium 124 mmol/L (137-145)
[2019-11-01] MEDS: CENTRAL LINE FLUSH 10 ML IV PUSH ×4 (05:50→18:05)
[2019-11-01] MEDS: PANTOPRAZOLE SODIUM IV 40 MG VIAL IV PUSH (08:35)
[2019-11-01] MEDS: polyethylene glycoL 3350 17 GM POWD.PACK PO (08:35)
[2019-11-01] MEDS: ATORVASTATIN 40 MG TABLET PO (08:35)
[2019-11-01] MEDS: ASPIRIN 81 MG ENTERIC TABLET PO (08:36)
[2019-11-01] MEDS: INSULIN GLARGINE (*BKC) 100 UNITS/ML 22 UNITS SUB-Q (08:37)
--- NOTE | 2019-11-01 08:50 | PM.PNNEP ---
Progress Note: A&P Assessment and Plan (1) GUSTABO (acute kidney injury): Code(s): N17.9 - Acute kidney failure, unspecified Status: Acute Assessment and Plan: multifactorial ATN: - prerenal factors (low urine Na) - ARB use prior to admission - contrast exposure x 2 (on 10/21 and 10/[address] scans) - acute infection (cholecystitis) - relative hypotension Still not making very much urine. he has a new catheter and received good dialysis yesterday. We will treat again today. (2) Chronic kidney disease, stage III (moderate): Code(s): N18.3 - Chronic kidney disease, stage 3 (moderate) Status: Acute Assessment and Plan: baseline creatinine ~ 1.2 - 1.5mg/dl presumably due to DM, HTN, SOPHY, and age-related disease (3) Hyponatremia: Code(s): E87.1 - Hypo-osmolality and hyponatremia Status: Acute Assessment and Plan: suspect due to GUSTABO/ARF This should come up with dialysis. Will use a low sodium bath so we do not correct too quickly. (4) Acute cholecystitis: Code(s): K81.0 - Acute cholecystitis Status: Acute Assessment and Plan: s/p laparoscopic cholecystectomy afebrile. White blood cell count is fine. Surgery On board (5) Acute respiratory failure with hypoxia: Code(s): J96.01 - Acute respiratory failure with hypoxia Status: Acute Assessment and Plan: probably due to fluid retention and SOPHY/pulmonary hypertension Dr. Yepez considering pulmonary embolism. Will get a CT with contrast and do dialysis afterwards. On the ventilator. Chest x-ray Shows some fluid. But probably not enough to explain 100% FiO2 (6) Diabetes: Code(s): E11.9 - Type 2 diabetes mellitus without complications Status: Acute Assessment and Plan: follow accuchecks on Lantus and SSI Will continue to follow. (7) Acidosis: Code(s): E87.2 - Acidosis Status: Acute Assessment and Plan: CO2 is better. off the bicarb drip Additional Plan Subjective Date/time seen: 11/01/19 08:50 Interval history: the patient is on the ventilator. FiO2 set to 100% He is sedated with midazolam and fentanyl. He looks comfortable. Review of Systems Review of Systems: ROS unobtainable: Yes unobtainable due to endotracheal tube Exam Narrative: Exam Narrative: General: WD/WN male in NAD; BiPAP in place Heart: normal S1 and S2; no rub Lungs: coarse breath sounds throughout Abdomen: soft, some TTP but + BS Extremities: 1+ edema Skin: No rash or subcu nodules Objective Data Vital Signs Vital Signs: Vital Signs - 24 hr 10/31/19 10:00 10/31/19 11:02 10/31/19 11:59 Temperature 36.6 C Pulse Rate 70 71 66 Respiratory Rate 22 H 22 H Blood Pressure 125/55 L 98/55 L Pulse Oximetry 93 92 94 10/31/19 12:00 10/31/19 13:49 10/31/19 14:00 Temperature Pulse Rate 66 64 68 Respiratory Rate 22 H 22 H Blood Pressure 94/45 L Pulse Oximetry 93 92 10/31/19 14:13 10/31/19 15:23 10/31/19 16:00 Temperature 36.7 C Pulse Rate 67 67 73 Respiratory Rate 22 H 22 H 22 H Blood Pressure 106/48 L Pulse Oximetry 93 10/31/19 16:55 10/31/19 17:25 10/31/19 17:27 Temperature 36.6 C Pulse Rate 67 64 62 Respiratory Rate 22 H Blood Pressure 93/46 L 95/46 L Pulse Oximetry 97 97 10/31/19 17:30 10/31/19 17:45 10/31/19 17:50 Temperature Pulse Rate 61 61 60 Respiratory Rate 22 H Blood Pressure 113/54 L 105/52 L Pulse Oximetry 10/31/19 18:00 10/31/19 18:15 10/31/19 19:00 Temperature Pulse Rate 65 62 67 Respiratory Rate 22 H Blood Pressure 102/55 L 104/53 L 94/52 L Pulse Oximetry 96 10/31/19 19:15 10/31/19 19:30 10/31/19 19:45 Temperature Pulse Rate 70 70 70 Respiratory Rate Blood Pressure 105/57 L 92/50 L 92/50 L Pulse Oximetry 10/31/19 20:00 10/31/19 20:10 10/31/19 2
--- NOTE | 2019-11-01 11:30 | PCDIET ---
Nutrition Follow-Up Complete: Nutrition Diagnosis: Inadequate oral intake related to oral intubation as evidenced by NPO status. Nutrition Goal: Patient to meet estimated nutritional needs. Goal in progress. RN reports patient tolerating Nepro at 30mL/hr which is being advanced toward goal of 50mL/hr. +BMs reported, and Colace was, therefore, held. Plan for dialysis again today. Last recorded weight is 135.2 kg which is down from last review. -I/O. Labs Reviewed: Hgb (9.9), Hct (27.9), BUN (63), Cr (7.8), Na (124), Ca (7.5), PO4 (9.2) Meds Noted: Albumin, Fentanyl, Novolog, Lantus, Albuterol, Atrovent, Solu Medrol, Versed, Protonix, Miralax, Vancomycin, Cefepime Additional Notes: Abdomen with incisions post-lap gini. No reported pressure ulcers. Recommend obtaining albumin for calcium correction. Will continue to monitor with same goal. Nutrition Monitoring and Evaluation: Follow up every Thursday/Thursday. Follow daily in ICU rounds.
[2019-11-01 12:13] LABS: Glucose Point of Care 267 (65-105)
--- NOTE | 2019-11-01 12:24 | WPDINTPN ---
Progress Note: A&P Assessment and Plan (1) Acute respiratory failure: Qualifiers: Respiratory failure complication: hypercapnia Qualified Code(s): J96.02 - Acute respiratory failure with hypercapnia Code(s): J96.00 - Acute respiratory failure, unspecified whether with hypoxia or hypercapnia Status: Acute Assessment and Plan: patient presented with hypercapnic respiratory failure most likely related to volume overload from acute on chronic kidney disease, could also be related to obstructive sleep apnea, obesity hypoventilation syndrome, pulmonary hypertension - Patient intubated on 10/30/2019: Remains on CMV mode of ventilation, peep of 5, 100% FiO2. will increase PEEP to 12 - CTA chest done on 10/31 was negative for PE, multisegmental lower lobe and subsegmental upper lobe atelectasis difficult to exclude superimposed infection - started patient on vancomycin and cefepime - patient on fentanyl and Versed infusion for sedation, maintain RASS of 0 to -2, daily sedation vacation - continue bronchodilators (2) GUSTABO (acute kidney injury): Code(s): N17.9 - Acute kidney failure, unspecified Status: Acute Assessment and Plan: patient with history of chronic kidney disease stage 3, now with acute kidney injury requiring dialysis. Dialysis catheter was placed in the right femoral vein on 10/28, not functioning well, surgery inserted a new dialysis catheter in the left IJ on 10/31/2019 - dialysis per Nephrology - hyponatremia and metabolic acidosis improved post dialysis - discussed with Nephrology, will discontinue bicarb infusion - will get dialyzed today again (3) Acute cholecystitis: Code(s): K81.0 - Acute cholecystitis Status: Acute Assessment and Plan: patient presented on 10/23/2019 with acute cholecystitis, status post laparoscopic cholecystectomy on 10/25/2019 surgery following the patient will start tube feeds today (4) Hyponatremia: Code(s): E87.1 - Hypo-osmolality and hyponatremia Status: Acute Assessment and Plan: hyponatremia likely related to hypovolemia secondary to volume overload due to acute on chronic kidney disease - patient to get dialyzed per Nephrology (5) Diabetes mellitus: Qualifiers: Diabetes mellitus type: type 2 Diabetes mellitus merchandise processor insulin use: with merchandise processor use Diabetes mellitus complication status: with other specified complication Qualified Code(s): E11.69 - Type 2 diabetes mellitus with other specified complication; Z79.4 - alf (current) use of insulin Code(s): E11.9 - Type 2 diabetes mellitus without complications Status: Acute Assessment and Plan: patient with history of time with neuropathy, skin issues and renal complications - continue Accu-Cheks, sliding scale and Lantus (6) DVT prophylaxis: Code(s): Z29.9 - Encounter for prophylactic measures, unspecified Status: Acute Assessment and Plan: DVT prophylaxis; on SQ heparin stress ulcer prophylaxis: continue Protonix Additional Plan discussed with and updated her with patient's condition and plan of care. I answered all questions. she is aware that patient is significantly sick and requiring increased oxygen on the ventilator will hold tube feeds code status: Full code critical care time spent: 41 minutes Due to a high probability of clinically significant, life threatening deterioration, the patient required my highest level of preparedness to intervene emergently and I personally spent this critical care time directly and personally managing the patient. This critical care time included obtaining a history; examining the patient; pulse oximetry; ordering and review of studies; arranging urgent treatment with development of a management plan; evaluation of patient's response to treatment; frequent reassessment; and discussions with other providers. It was exclusiv
[2019-11-01 13:35] LABS: Alveolar/Arterial O2 Gradient 598.4 mmHg; Base Excess ABG -2.8 mEq/l (+/-2.0); Carboxyhemoglobin 0.3 % THb (0-2.0); Fractional Inspired Oxygen 100 %; HCO3 ABG 22.4 mEq/l (22.0-26.0); Methemoglobin ABG 0.3 %THb (0-1.5); Oxygen Content ABG 13.9 %vol (16.0-22.0); Oxygen Saturation ABG 94.5 % (95.0-100.0); Oxyhemoglobin 91.9 % THb (90.0-100.0); PCO2 ABG 40.3 mmHg (35.0-45.0); PO2 ABG 74.3 mmHg (80.0-100.0); PO2 FiO2 Ratio Arterial Blood 0.74 %; Reduced Hemoglobin 7.5 %THb (0-5.0); Total Hemoglobin 10.7 g/dL (12.0-18.0); pH ABG 7.363 (7.350-7.450)
[2019-11-01 13:37] LABS: Device VENTILATOR; Modified Allen's Test Pass; Site Drawn RIGHT RADIAL
[2019-11-01 13:38] LABS: Arterial Blood Gas Minute Volume 0 LPM; Arterial Blood Gas PEEP 12 cmH2O; Arterial Blood Gas Pressure Support 0 cmH2O; Arterial Blood Gas Tidal Volume 450 ml; Arterial Blood Gas Vent Mode CMV; Arterial Blood Gas Ventilator rate 22 /MIN; Peak Inspiratory Pressure 0 cmH2O
[2019-11-01] MEDS: PERFLUTREN LIPID MICROSPHERES 1.5 ML VIAL DILUTED TO 10 ML TOTAL VOLUME IV PUSH (14:11)
[2019-11-01] MEDS: EPOPROSTENOL SODIUM 0.5 MG VIAL 1 MG INHALATION ×2 (15:11→21:39)
--- NOTE | 2019-11-01 17:01 | PM.IMPN ---
Progress Note: A&P Assessment and Plan (1) Acute cholecystitis: Code(s): K81.0 - Acute cholecystitis Status: Acute Assessment and Plan: POD#6 lap cholecystectomy.. Op note described gangrenous changes and friable tissue; pt is on IV zosyn (day 5). Zosyn is completed. (2) Acute respiratory failure with hypoxia: Code(s): J96.01 - Acute respiratory failure with hypoxia Status: Acute Assessment and Plan: Pt is on BIPAP for respiratory distress and labored breathing needing continuous BIPAP presently, pt will be transferred to IMU I will add steroids IV for patient Echocardiogram reviewed and shows good systolic function EF 65-75%, grade I diastolic dysfunction. CTA 10/22 shows no PE or other acute findings for that matter. Pt will need assessment for SOPHY as outpatient,Obese large neck and COPD Albuterol treatments started ABG today reveiwed improved pt still acidoitic 11/01/19 17:01 85-year-old male status post cholecystectomy on 10/25/2019 chronic kidney disease stage 3 patient developed hypoxia and was emergently intubated, most likely secondary to volume overload as patient was hydrated for acute kidney injury not requiring dialysis, also possibly due to hypoventilation due to morbid obesity, remains intubated, patient seen by film developer had a emergent dialysis yesterday however there is no significant improvement in oxygenation as patient is requiring 100%, patient will have dialysis again today, patient is present in the room answered all her questions. (3) GUSTABO (acute kidney injury): Code(s): N17.9 - Acute kidney failure, unspecified Status: Acute Assessment and Plan: No clear etiology , probably due to overdiuresis.Contrast dye. DM, post op PH 7.228, creat10 from 8.5 from 6.9 from 4.9 sodium is 118. Communicated with nephrology ?dialysis - first round Creat is worsening pt will benefit from dialysis pt had sumeet catheter and first round of dialysis today could not tolerate dialysis yesterday due to anxiety and SOB (4) Type 2 diabetes mellitus with other skin complications: Code(s): E11.628 - Type 2 diabetes mellitus with other skin complications Status: Acute Assessment and Plan: Continue ISS and add low dose long acting insulin q am. (5) Essential (primary) hypertension: Code(s): I10 - Essential (primary) hypertension Status: Acute Assessment and Plan: Hold his ARB and lasix given the GUSTABO (6) Hyperlipidemia LDL goal <70: Code(s): E78.5 - Hyperlipidemia, unspecified Status: Acute Assessment and Plan: Maintained on home statin therapy. (7) Hyponatremia: Code(s): E87.1 - Hypo-osmolality and hyponatremia Status: Acute Assessment and Plan: Was previously diuresed with home chlorthalidone and additional IV lasix due to lower extremity edema. Hold diuretics hyponatremia (8) Suspected sleep apnea: Code(s): R29.818 - Other symptoms and signs involving the nervous system Status: Acute Assessment and Plan: . Pt is on BIPAP for possible COPD excerbation, Consulted DR Baldwin, pulmunology. For recommendations. Pt will need OPD sleep study on discharge Pt transfered to [facility] Subjective Date/time seen: 11/01/19 17:01 85-year-old male status post cholecystectomy on 10/25/2019 chronic kidney disease stage 3 patient developed hypoxia and was emergently intubated, most likely secondary to volume overload as patient was hydrated for acute kidney injury not requiring dialysis, also possibly due to hypoventilation due to morbid obesity, remains intubated, patient seen by film developer had a emergent dialysis yesterday however there is no significant improvement
[2019-11-01 17:30] LABS: Glucose Point of Care 257 (65-105)
--- NOTE | 2019-11-01 19:08 | PM.PROC ---
Procedure Note - Detailed Date of procedure: 11/01/19 Pre-op diagnosis: Acute on chronic renal failure, inadequate venous Post-op diagnosis: same Procedure performed: Exchange over the wire of a right femoral dialysis catheter Description of procedure: The patient is in ICU bed 8. He was placed flat. Time-out was performed. Following this I prepped the entire right groin around the catheter and the catheter parts with chlorhexidine. Following this we placed a sterile drape. Using sterile technique with cap, gown, and gloves I carefully snipped the stitches on holding the current catheter in place. Prior to the procedure I had referred to the instructions and its distal port was the blue side port of the catheter. The guidewire was placed down the blue side after releasing the cap and the clip on that port it passed easily and the catheter was removed and placed on it far portion of the drape. Following this the guidewire was cleansed with chlorhexidine as well as of I used a 4 x 4 to handle the new catheter which was a 24 cm catheter which was placed over the wire after dilating with the largest dilator in the kit. This fed in nicely and good dark blood was aspirated from both ports following the placement. This 1 has a pigtail catheter on it so all these were flushed with saline and then subsequently the two dialysis ports wre flushed with heparinized saline 5 mL/cc on the to of limbs of the dialysis catheter. Patient tolerated the procedure well. An antibiotic disc was placed around the exit site and the catheter was sutured into place with 2 sutures of 2-0 nylon. Implants: 24 cm triple lumen dialysis catheter. Anesthesia: none and other Surgeon: Trung Lux MD [employer] Carpenter: ICU nurse Sanaz Estimated blood loss (mL): 5 Drains: No Packing: No Pathology: none sent Complications: No immediate complications Condition: stable Disposition: ICU Findings: The old catheter had no obvious clotting, kinks, or other problems.
--- NOTE | 2019-11-01 21:12 | PM.PNPUL ---
Progress Note: A&P Assessment and Plan (1) Acute respiratory failure: Qualifiers: Respiratory failure complication: hypercapnia Qualified Code(s): J96.02 - Acute respiratory failure with hypercapnia Code(s): J96.00 - Acute respiratory failure, unspecified whether with hypoxia or hypercapnia Status: Acute Assessment and Plan: Multifactorial, post op with atelectesis, possible COPD and SOPHY - increase PEEP to 8-10 while intubated - weaning trial, minimize sedation - extubate to BIPAP 20/6 with backup rate of 14-16. - avoid narcotics and sedatives once extubation - early mobilization once extubated - Albuterol 2.5 mg/Atrovent 0.5 mg Nebs Q6h - DVT prophylaxis Subjective Date/time seen: 11/01/19 21:12 Interval history: 84 y/o obese male with COPD, SOPHY post cholecystectomy with wound infection and respiratory failure, acute renal failure requiring acute dialysis. CXR today shows RLL/RML atelectasis. Likely needs PEEP of 8-10 cm while intubated. WBC has normalized Review of Systems Review of Systems: All systems reviewed & are unremarkable except as noted in HPI and below Exam Narrative: Exam Narrative: intubated and sedated Const: General: comfortable and no acute distress Neck: Neck: supple and no JVD Resp: Auscultation: clear to auscultation bilaterally and diminished lung sounds Cardio: Rate: regular rate Rhythm: regular rhythm Heart sounds: no murmurs Skin: General skin exam: normal color Neuro: Other: intubated and sedated Objective Data Vital Signs Vital Signs: Vital Signs - 24 hr 10/31/19 22:00 10/31/19 23:30 11/01/19 00:00 Temperature 36.6 C Pulse Rate 63 70 62 Respiratory Rate 22 H 22 H Blood Pressure 101/49 L 113/60 Pulse Oximetry 92 92 92 11/01/19 01:11 11/01/19 02:00 11/01/19 02:40 Temperature Pulse Rate 65 64 65 Respiratory Rate 22 H 22 H 22 H Blood Pressure 116/63 Pulse Oximetry 91 11/01/19 02:44 11/01/19 02:47 11/01/19 04:00 Temperature 36.9 C Pulse Rate 63 63 72 Respiratory Rate 22 H 22 H Blood Pressure 118/60 Pulse Oximetry 92 90 11/01/19 04:59 11/01/19 05:58 11/01/19 06:00 Temperature Pulse Rate 75 63 64 Respiratory Rate 22 H 16 Blood Pressure 103/54 L Pulse Oximetry 91 90 11/01/19 07:57 11/01/19 07:58 11/01/19 07:59 Temperature 36.8 C Pulse Rate 75 Respiratory Rate 21 H Blood Pressure Pulse Oximetry 91 11/01/19 08:00 11/01/19 08:10 11/01/19 10:00 Temperature 36.6 C Pulse Rate 74 75 77 Respiratory Rate 22 H 22 H 22 H Blood Pressure 97/50 L 131/69 Pulse Oximetry 89 L 92 11/01/19 10:37 11/01/19 12:00 11/01/19 13:46 Temperature 36.9 C Pulse Rate 67 62 65 Respiratory Rate 22 H 22 H Blood Pressure 114/55 L Pulse Oximetry 91 89 L 11/01/19 13:51 11/01/19 14:00 11/01/19 14:08 Temperature Pulse Rate 63 63 73 Respiratory Rate 22 H 22 H 24 H Blood Pressure 115/57 L Pulse Oximetry 90 11/01/19 14:28 11/01/19 15:10 11/01/19 16:00 Temperature 36.9 C Pulse Rate 64 62 61 Respiratory Rate 22 H 22 H Blood Pressure 104/57 L Pulse Oximetry 90 90 92 11/01/19 16:49 11/01/19 16:50 11/01/19 18:23 Temperature Pulse Rate 59 L 59 L 58 L Respiratory Rate 22 H 22 H Blood Pressure Pulse Oximetry 92 92 11/01/19 20:37 Temperature Pulse Rate 75 Respiratory Rate Blood Pressure Pulse Oximetry 91 Intake/Output Intake/Output: Intake & Output 10/29/19 10/30/19 10/31/19 11/01/19 23:59 23:59 23:59 23:59 Intake Total 440 200 655 654 Output Total 292 457 1604 0 Balance 37 -083 -5493 658 Meds/Results Medications: Active Medications Generic Name Dose Route Start Last Admin Trade Name Freq PRN Reason Stop Dose Admin Acetaminophen 1,000 mg 10/25/19 16:42 Tylenol Tablet PO Q6H PRN Mild Pain (1-3) or Fever Hydrocodone Bitart/Acetaminophen 1 tab 10/25/19 16:39 Leola 5-325 Mg PO Q6H PRN Pain Rated 4-6
--- NOTE | 2019-11-01 22:51 | PC.NURSE ---
Dialysis contacted to verify dialysis appointment for tonight. Patient is to be dialyzed tonight once dialysis nurse is finished with current treatment.
[2019-11-02] VITALS (49 sets, daily range): BP systolic 85–162; BP diastolic 51–72; PULSE 57–80; RESP 12–23; TEMP 35.8–37.2; O2SAT 88–96
[2019-11-02 01:06] LABS: Glucose Point of Care 213 (65-105)
[2019-11-02] MEDS: methylPREDNISolone SOD SUCC 125 MG VIAL 60 MG IV PUSH ×4 (01:24→18:00)
[2019-11-02] MEDS: INSULIN ASPART (*BKC) 100 UNITS/ML SUB-Q ×3 (01:25→17:58)
[2019-11-02 02:16] LABS: Alveolar/Arterial O2 Gradient 581.8 mmHg; Carboxyhemoglobin 0.3 % THb (0-2.0); Fractional Inspired Oxygen 100 %; HCO3 ABG 24.5 mEq/l (22.0-26.0); Methemoglobin ABG 0.1 %THb (0-1.5); Oxygen Content ABG 15.2 %vol (16.0-22.0); Oxygen Saturation ABG 96.3 % (95.0-100.0); Oxyhemoglobin 94.3 % THb (90.0-100.0); PO2 ABG 87.2 mmHg (80.0-100.0); PO2 FiO2 Ratio Arterial Blood 0.87 %; Reduced Hemoglobin 5.3 %THb (0-5.0); Total Hemoglobin 11.4 g/dL (12.0-18.0); pH ABG 7.363 (7.350-7.450)
[2019-11-02 02:18] LABS: Device VENTILATOR; Modified Allen's Test Pass; Site Drawn LEFT RADIAL
[2019-11-02 02:19] LABS: Arterial Blood Gas PEEP 12 cmH2O; Arterial Blood Gas Pressure Support 0 cmH2O; Arterial Blood Gas Tidal Volume 450 ml; Arterial Blood Gas Vent Mode CMV; Arterial Blood Gas Ventilator rate 22 /MIN
[2019-11-02] MEDS: EPOPROSTENOL SODIUM 0.5 MG VIAL 1 MG INHALATION ×4 (03:44→22:01)
[2019-11-02 04:30] LABS: Hematocrit 28.8 % (42.0-52.0); Hemoglobin 10.2 g/dL (14.0-18.0); Mean Corpuscular HGB Conc 35.4 g/dl (32-36); Mean Corpuscular Hemoglobin 31.3 pg (26-34); Mean Corpuscular Volume 88.3 fl (80-100); Mean Platelet Volume 10.1 fl (7.4-10.4); Platelet Count Result 256 k/mm3 (150-375); Red Blood Count 3.26 M/mm3 (4.6-6.20); Red Cell Distribution Width 12.7 % (11.5-14.5); White Blood Count 12.7 K/mm3 (4.5-10.0)
[2019-11-02 04:49] LABS: Blood Urea Nitrogen 69 mg/dL (9-20); Calcium 7.9 mg/dL (8.4-10.2); Carbon Dioxide 25 mmol/L (22-30); Chloride 85 mmol/L (98-107); Estimated CRCL calculation 9 ml/min; Estimated Glomerular Filt Rate 7; Glucose 189 mg/dL (75-110); Magnesium 2.3 mg/dL (1.6-2.3); Potassium 4.6 mmol/L (3.4-5.0); Sodium 125 mmol/L (137-145)
[2019-11-02] MEDS: CENTRAL LINE FLUSH 10 ML IV PUSH ×4 (06:23→20:05)
[2019-11-02] MEDS: HEPARIN SODIUM 5,000 UNITS/ML VIAL 5000 UNITS SUB-Q ×5 (08:06→20:04)
[2019-11-02 08:23] LABS: Base Excess ABG -1.2 mEq/l (+/-2.0); Carboxyhemoglobin 0.3 % THb (0-2.0); Fractional Inspired Oxygen 100 %; HCO3 ABG 24.2 mEq/l (22.0-26.0); Methemoglobin ABG 0.2 %THb (0-1.5); Oxygen Content ABG 14.8 %vol (16.0-22.0); Oxygen Saturation ABG 97.2 % (95.0-100.0); Oxyhemoglobin 95.5 % THb (90.0-100.0); PCO2 ABG 43.5 mmHg (35.0-45.0); PO2 ABG 97.5 mmHg (80.0-100.0); PO2 FiO2 Ratio Arterial Blood 0.98 %; Total Hemoglobin 10.9 g/dL (12.0-18.0); pH ABG 7.363 (7.350-7.450)
[2019-11-02 08:25] LABS: Arterial Blood Gas Ventilator rate 22 /MIN; Device VENTILATOR; Modified Allen's Test Pass; Site Drawn RIGHT RADIAL
[2019-11-02 08:26] LABS: Arterial Blood Gas PEEP 12 cmH2O; Arterial Blood Gas Tidal Volume 450 ml; Arterial Blood Gas Vent Mode CMV
[2019-11-02] MEDS: ASPIRIN 81 MG ENTERIC TABLET PO (09:07)
[2019-11-02] MEDS: INSULIN GLARGINE (*BKC) 100 UNITS/ML 22 UNITS SUB-Q (09:07)
[2019-11-02] MEDS: ATORVASTATIN 40 MG TABLET PO (09:07)
[2019-11-02] MEDS: PANTOPRAZOLE SODIUM IV 40 MG VIAL IV PUSH (09:08)
--- NOTE | 2019-11-02 10:06 | P.PNNP_ITS ---
Progress Note: A&P Assessment and Plan (1) GUSTABO (acute kidney injury): Code(s): N17.9 - Acute kidney failure, unspecified Status: Acute Assessment and Plan: * multifactorial ATN: - prerenal factors (low urine Na) - ARB use prior to admission - contrast exposure x 2 (on 10/21 and 10/[address] scans) - acute infection (cholecystitis) - relative hypotension * Still not making very much urine. * new catheter in the neck. This unfortunately did not work well either. * A 2nd 1 was guidewired using the femoral Oscar catheter from yesterday and it worked last night apparently. Only 1L taken off. * We will treat again today. * Will take extra fluid off today. I talked with nursing about the possibility of nor epi to help us take fluid off. The patient is on 100% oxyg en so I want to be aggressive with fluid removal. (2) Chronic kidney disease, stage III (moderate): Code(s): N18.3 - Chronic kidney disease, stage 3 (moderate) Status: Acute Assessment and Plan: * baseline creatinine ~ 1.2 - 1.5mg/dl * presumably due to DM, HTN, SOPHY, and age-related disease (3) Hyponatremia: Code(s): E87.1 - Hypo-osmolality and hyponatremia Status: Acute Assessment and Plan: * suspect due to GUSTABO/ARF * This should come up with dialysis. We use a 132 bath today. (4) Acute cholecystitis: Code(s): K81.0 - Acute cholecystitis Status: Acute Assessment and Plan: * s/p laparoscopic cholecystectomy * afebrile. White blood cell count is fine. * Surgery On board (5) Acute respiratory failure with hypoxia: Code(s): J96.01 - Acute respiratory failure with hypoxia Status: Acute Assessment and Plan: * probably due to fluid retention and SOPHY/pulmonary hypertension * Dr. Yepez considering pulmonary embolism. Will get a CT with contrast and do dialysis afterwards. * On the ventilator. * Chest x-ray Shows some fluid. But probably not enough to explain 100% FiO2 * CT chest negative for pulmonary embolism. * Getting tested for COVID (6) Diabetes: Code(s): E11.9 - Type 2 diabetes mellitus without complications Status: Acute Assessment and Plan: * follow accuchecks * on Lantus and SSI Will continue to follow. (7) Acidosis: Code(s): E87.2 - Acidosis Status: Acute Assessment and Plan: CO2 is better. Additional Plan Subjective Date/time seen: 11/02/19 10:06 Interval history: the patient is on the ventilator. FiO2 set to 100% He is sedated with midazolam and fentanyl. In no distress Review of Systems Review of Systems: ROS unobtainable: Yes unobtainable due to endotracheal tube Exam Narrative: Exam Narrative: General: WD/WN male in NAD; BiPAP in place Heart: normal S1 and S2; no rub Lungs: coarse breath sounds throughout Abdomen: soft, some TTP but + BS Extremities: 1+ edema Skin: No rash Objective Data Vital Signs Vital Signs: Vital Signs - 24 hr 11/01/19 10:37 11/01/19 12:00 11/01/19 13:46 Temperature 36.9 C Pulse Rate 67 62 65 Respiratory Rate 22 H 22 H Blood Pressure 114/55 L Pulse Oximetry 91 89 L 11/01/19 13:51 11/01/19 14:00 11/01/19 14:08 Temperature
--- NOTE | 2019-11-02 10:06 | PM.PNNEP ---
Progress Note: A&P Assessment and Plan (1) GUSTABO (acute kidney injury): Code(s): N17.9 - Acute kidney failure, unspecified Status: Acute Assessment and Plan: multifactorial ATN: - prerenal factors (low urine Na) - ARB use prior to admission - contrast exposure x 2 (on 10/21 and 10/[address] scans) - acute infection (cholecystitis) - relative hypotension Still not making very much urine. new catheter in the neck. This unfortunately did not work well either. A 2nd 1 was guidewired using the femoral Oscar catheter from yesterday and it worked last night apparently. Only 1L taken off. We will treat again today. Will take extra fluid off today. I talked with nursing about the possibility of nor epi to help us take fluid off. The patient is on 100% oxygen so I want to be aggressive with fluid removal. (2) Chronic kidney disease, stage III (moderate): Code(s): N18.3 - Chronic kidney disease, stage 3 (moderate) Status: Acute Assessment and Plan: baseline creatinine ~ 1.2 - 1.5mg/dl presumably due to DM, HTN, SOPHY, and age-related disease (3) Hyponatremia: Code(s): E87.1 - Hypo-osmolality and hyponatremia Status: Acute Assessment and Plan: suspect due to GUSTABO/ARF This should come up with dialysis. We use a 132 bath today. (4) Acute cholecystitis: Code(s): K81.0 - Acute cholecystitis Status: Acute Assessment and Plan: s/p laparoscopic cholecystectomy afebrile. White blood cell count is fine. Surgery On board (5) Acute respiratory failure with hypoxia: Code(s): J96.01 - Acute respiratory failure with hypoxia Status: Acute Assessment and Plan: probably due to fluid retention and SOPHY/pulmonary hypertension Dr. Yepez considering pulmonary embolism. Will get a CT with contrast and do dialysis afterwards. On the ventilator. Chest x-ray Shows some fluid. But probably not enough to explain 100% FiO2 CT chest negative for pulmonary embolism. Getting tested for COVID (6) Diabetes: Code(s): E11.9 - Type 2 diabetes mellitus without complications Status: Acute Assessment and Plan: follow accuchecks on Lantus and SSI Will continue to follow. (7) Acidosis: Code(s): E87.2 - Acidosis Status: Acute Assessment and Plan: CO2 is better. Additional Plan Subjective Date/time seen: 11/02/19 10:06 Interval history: the patient is on the ventilator. FiO2 set to 100% He is sedated with midazolam and fentanyl. In no distress Review of Systems Review of Systems: ROS unobtainable: Yes unobtainable due to endotracheal tube Exam Narrative: Exam Narrative: General: WD/WN male in NAD; BiPAP in place Heart: normal S1 and S2; no rub Lungs: coarse breath sounds throughout Abdomen: soft, some TTP but + BS Extremities: 1+ edema Skin: No rash Objective Data Vital Signs Vital Signs: Vital Signs - 24 hr 11/01/19 10:37 11/01/19 12:00 11/01/19 13:46 Temperature 36.9 C Pulse Rate 67 62 65 Respiratory Rate 22 H 22 H Blood Pressure 114/55 L Pulse Oximetry 91 89 L 11/01/19 13:51 11/01/19 14:00 11/01/19 14:08 Temperature Pulse Rate 63 63 73 Respiratory Rate 22 H 22 H 24 H Blood Pressure 115/57 L Pulse Oximetry 90 11/01/19 14:28 11/01/19 15:10 11/01/19 16:00 Temperature 36.9 C Pulse Rate 64 62 61 Respiratory Rate 22 H 22 H Blood Pressure 104/57 L Pulse Oximetry 90 90 92 11/01/19 16:49 11/01/19 16:50 11/01/19 18:23 Temperature Pulse Rate 59 L 59 L 58 L Respiratory Rate 22 H 22 H Blood Pressure Pulse Oximetry 92 92 11/01/19 20:00 11/01/19 20:37 11/01/19 21:40 Temperature 37.1 C Pulse Rate 65 75 60 Respiratory Rate 22 H 12 Blood Pressure 118/56 L Pulse Oximetry 92 91 93 11/01/19 22:00 11/01/19 22:35 11/02/19 00:00 [place]
--- NOTE | 2019-11-02 11:37 | PCDIET ---
ICU Rounding Note: Tube feedings on hold for high O2 requirements, per MD order. Plan for hemodialysis again today. Last recorded weight is 127.3kg which is down from last review. -I/O. MD planning continued diuresis. Bowel Motility: Multiple BMs reported. Labs Reviewed: Glu (189), BUN (69), Cr (7.8), Na (125), Ca (7.9), PO4 (9.0) Meds Noted: Albumin, Fentanyl, Albuterol, Novolog, Maxipime, Lantus, Colace, Atrovent, Solu Medrol, Versed, Protonix, Miralax, Vancomycin Additional Notes: No documented skin breakdown. Recommend resuming tube feedings once medically appropriate. Following daily in ICU rounds. Assessing/reassessing every Thursday/Thursday.
[2019-11-02 12:18] LABS: Glucose Point of Care 203 (65-105)
--- NOTE | 2019-11-02 13:50 | WPDINTPN ---
Progress Note: A&P Assessment and Plan (1) Acute respiratory failure: Qualifiers: Respiratory failure complication: hypercapnia Qualified Code(s): J96.02 - Acute respiratory failure with hypercapnia Code(s): J96.00 - Acute respiratory failure, unspecified whether with hypoxia or hypercapnia Status: Acute Assessment and Plan: patient presented with hypercapnic respiratory failure most likely related to volume overload from acute on chronic kidney disease, could also be related to obstructive sleep apnea, obesity hypoventilation syndrome, pulmonary hypertension - Patient intubated on 10/30/2019: Remains on CMV mode of ventilation, peep of 5, 100% FiO2. will increase PEEP to 12 - CTA chest done on 10/31 was negative for PE, multisegmental lower lobe and subsegmental upper lobe atelectasis difficult to exclude superimposed infection - started patient on vancomycin and cefepime on 10/31 - patient on fentanyl and Versed infusion for sedation, maintain RASS of 0 to -2, daily sedation vacation - continue bronchodilators - started patient on Flolan on 10/31 (2) GUSTABO (acute kidney injury): Code(s): N17.9 - Acute kidney failure, unspecified Status: Acute Assessment and Plan: patient with history of chronic kidney disease stage 3, now with acute kidney injury requiring dialysis. Dialysis catheter was placed in the right femoral vein on 10/28, not functioning well, surgery inserted a new dialysis catheter in the left IJ on 10/31/2019 - dialysis per Nephrology - hyponatremia and metabolic acidosis improved post dialysis - discussed with Nephrology, will discontinue bicarb infusion - will get dialyzed today again (3) Acute cholecystitis: Code(s): K81.0 - Acute cholecystitis Status: Acute Assessment and Plan: patient presented on 10/23/2019 with acute cholecystitis, status post laparoscopic cholecystectomy on 10/25/2019 surgery following the patient will hold tube feed this patient is requiring high ventilatory support (4) Hyponatremia: Code(s): E87.1 - Hypo-osmolality and hyponatremia Status: Acute Assessment and Plan: hyponatremia likely related to hypovolemia secondary to volume overload due to acute on chronic kidney disease - patient to get dialyzed per Nephrology (5) Diabetes mellitus: Qualifiers: Diabetes mellitus type: type 2 Diabetes mellitus fci insulin use: with emt intermediate use Diabetes mellitus complication status: with other specified complication Qualified Code(s): E11.69 - Type 2 diabetes mellitus with other specified complication; 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 I answered all questions. she is aware that patient is significantly sick and requiring increased oxygen on the ventilator will hold tube feeds code status: do not resuscitate critical care time spent: 38 minutes Due to a high probability of clinically significant, life threatening deterioration, the patient required my highest level of preparedness to intervene emergently and I personally spent this critical care time directly and personally managing the patient. This critical care time included obtaining a history; examining the patient; pulse oximetry; ordering and review of studies; arranging urgent treatment with development of a management plan; evaluation of p
[2019-11-02 14:06] LABS: SARS-CoV-2 RNA PCR Negative
[2019-11-02 14:16] LABS: Alveolar/Arterial O2 Gradient 508.6 mmHg; Base Excess ABG -3.9 mEq/l (+/-2.0); Carboxyhemoglobin 0.2 % THb (0-2.0); Fractional Inspired Oxygen 90 %; HCO3 ABG 21.8 mEq/l (22.0-26.0); Methemoglobin ABG 0.2 %THb (0-1.5); Oxygen Content ABG 14.7 %vol (16.0-22.0); Oxygen Saturation ABG 96.3 % (95.0-100.0); Oxyhemoglobin 94.3 % THb (90.0-100.0); PCO2 ABG 42.2 mmHg (35.0-45.0); PO2 ABG 89.9 mmHg (80.0-100.0); Reduced Hemoglobin 5.3 %THb (0-5.0); pH ABG 7.331 (7.350-7.450)
[2019-11-02 14:26] LABS: Site Drawn RIGHT RADIAL
[2019-11-02 14:27] LABS: Arterial Blood Gas Ventilator rate 22 /MIN; Device VENTILATOR; Modified Allen's Test Pass
[2019-11-02 14:29] LABS: Arterial Blood Gas PEEP 12 cmH2O; Arterial Blood Gas Tidal Volume 450 ml; Arterial Blood Gas Vent Mode CMV
[2019-11-02 17:54] LABS: Glucose Point of Care 252 (65-105)
[2019-11-02 19:21] LABS: Alveolar/Arterial O2 Gradient 423.8 mmHg; Base Excess ABG -2.5 mEq/l (+/-2.0); Carboxyhemoglobin 0.2 % THb (0-2.0); Fractional Inspired Oxygen 80 %; HCO3 ABG 24.2 mEq/l (22.0-26.0); Methemoglobin ABG 0.3 %THb (0-1.5); Modified Allen's Test Unable to perform; Oxygen Content ABG 15.4 %vol (16.0-22.0); Oxygen Saturation ABG 96.4 % (95.0-100.0); Oxyhemoglobin 94.4 % THb (90.0-100.0); PO2 ABG 94.1 mmHg (80.0-100.0); PO2 FiO2 Ratio Arterial Blood 1.18 %; Reduced Hemoglobin 5.1 %THb (0-5.0); Site Drawn RIGHT RADIAL; Total Hemoglobin 11.5 g/dL (12.0-18.0); pH ABG 7.303 (7.350-7.450)
[2019-11-02 19:22] LABS: Arterial Blood Gas PEEP 12 cmH2O; Arterial Blood Gas Tidal Volume 450 ml; Arterial Blood Gas Vent Mode CMV; Arterial Blood Gas Ventilator rate 22 /MIN; Device VENTILATOR
[2019-11-02] MEDS: NOREPINEPHRINE 8 MG/D5W 250 ML 8 MG/250 ML BAG 9.4 MG IV CONT (20:40)
[2019-11-02 23:54] LABS: Glucose Point of Care 189 (65-105)
[2019-11-03] VITALS (56 sets, daily range): BP systolic 69–156; BP diastolic 43–63; PULSE 60–94; RESP 12–25; TEMP 35.5–37.1; O2SAT 89–98
[2019-11-03] MEDS: methylPREDNISolone SOD SUCC 125 MG VIAL 60 MG IV PUSH ×2 (00:46→05:21)
[2019-11-03 01:11] LABS: Alveolar/Arterial O2 Gradient 400.2 mmHg; Base Excess ABG -0.5 mEq/l (+/-2.0); Carboxyhemoglobin 0.3 % THb (0-2.0); Device VENTILATOR; Fractional Inspired Oxygen 80 %; HCO3 ABG 25.9 mEq/l (22.0-26.0); Methemoglobin ABG 0.3 %THb (0-1.5); Modified Allen's Test Unable to perform; Oxygen Content ABG 16.5 %vol (16.0-22.0); Oxyhemoglobin 96.6 % THb (90.0-100.0); PCO2 ABG 50.2 mmHg (35.0-45.0); PO2 ABG 117.5 mmHg (80.0-100.0); PO2 FiO2 Ratio Arterial Blood 1.47 %; Reduced Hemoglobin 2.8 %THb (0-5.0); Site Drawn RIGHT RADIAL; pH ABG 7.331 (7.350-7.450)
[2019-11-03 01:12] LABS: Arterial Blood Gas PEEP 12 cmH2O; Arterial Blood Gas Tidal Volume 450 ml; Arterial Blood Gas Vent Mode CMV; Arterial Blood Gas Ventilator rate 22 /MIN
[2019-11-03] MEDS: HEPARIN SODIUM 5,000 UNITS/ML VIAL 5000 UNITS SUB-Q ×4 (02:00→21:37)
[2019-11-03] MEDS: EPOPROSTENOL SODIUM 0.5 MG VIAL 1 MG INHALATION ×4 (03:46→21:54)
[2019-11-03 04:38] LABS: Basophils Percent Auto 0.1 % (0.2-1.2); Hematocrit 29.6 % (42.0-52.0); Hemoglobin 10.3 g/dL (14.0-18.0); Immature Granulocyte Absolute 0.12 K/mm3 (0.00-0.031); Immature Granulocyte Percent A 0.8 % (0-0.5); Lymphocytes Absolute Auto 0.41 K/mm3 (0.9-3.2); Lymphocytes Percent Auto 2.6 % (18.3-44.2); Mean Corpuscular HGB Conc 34.8 g/dl (32-36); Mean Corpuscular Hemoglobin 30.6 pg (26-34); Mean Corpuscular Volume 87.8 fl (80-100); Mean Platelet Volume 10.4 fl (7.4-10.4); Monocytes Absolute Auto 0.9 K/mm3 (0.1-0.6); Monocytes Percent Auto 5.9 % (2.6-8.5); Neutrophils Absolute Auto 14.5 K/mm3 (1.3-6.7); Neutrophils Percent Auto 90.6 % (45.5-73.1); Platelet Count Result 260 k/mm3 (150-375); Red Blood Count 3.37 M/mm3 (4.6-6.20); Red Cell Distribution Width 12.4 % (11.5-14.5)
[2019-11-03 04:54] LABS: Anion Gap 19.7 mmol/L (7-16); Blood Urea Nitrogen 70 mg/dL (9-20); Calcium 8.2 mg/dL (8.4-10.2); Carbon Dioxide 25 mmol/L (22-30); Chloride 84 mmol/L (98-107); Estimated CRCL calculation 9 ml/min; Estimated Glomerular Filt Rate 7; Glucose 218 mg/dL (75-110); Magnesium 2.3 mg/dL (1.6-2.3); Phosphorus 9.9 mg/dL (2.5-4.5); Potassium 4.7 mmol/L (3.4-5.0); Sodium 124 mmol/L (137-145)
[2019-11-03] MEDS: INSULIN ASPART (*BKC) 100 UNITS/ML SUB-Q ×2 (05:20→12:22)
[2019-11-03] MEDS: CENTRAL LINE FLUSH 10 ML IV PUSH ×4 (05:21→21:38)
[2019-11-03 05:31] LABS: Glucose Point of Care 219 (65-105)
[2019-11-03 05:35] LABS: Vancomycin Trough 11.7 ug/mL (10.0-20.0)
[2019-11-03 07:40] LABS: Alveolar/Arterial O2 Gradient 394.2 mmHg; Arterial Blood Gas Ventilator rate 22 /MIN; Base Excess ABG -1.2 mEq/l (+/-2.0); Carboxyhemoglobin 0.3 % THb (0-2.0); Device VENTILATOR; Fractional Inspired Oxygen 80 %; HCO3 ABG 25.2 mEq/l (22.0-26.0); Methemoglobin ABG 0.2 %THb (0-1.5); Modified Allen's Test Pass; Oxygen Content ABG 16.8 %vol (16.0-22.0); Oxygen Saturation ABG 98.2 % (95.0-100.0); Oxyhemoglobin 96.8 % THb (90.0-100.0); PCO2 ABG 49.3 mmHg (35.0-45.0); PO2 ABG 124.4 mmHg (80.0-100.0); PO2 FiO2 Ratio Arterial Blood 1.56 %; Reduced Hemoglobin 2.7 %THb (0-5.0); Site Drawn LEFT RADIAL; Total Hemoglobin 12.2 g/dL (12.0-18.0); pH ABG 7.326 (7.350-7.450)
[2019-11-03 07:41] LABS: Arterial Blood Gas PEEP 12 cmH2O; Arterial Blood Gas Tidal Volume 450 ml; Arterial Blood Gas Vent Mode CMV; Peak Inspiratory Pressure 0 cmH2O
--- NOTE | 2019-11-03 08:40 | P.PNNP_ITS ---
Progress Note: A&P Assessment and Plan (1) GUSTABO (acute kidney injury): Code(s): N17.9 - Acute kidney failure, unspecified Status: Acute Assessment and Plan: * multifactorial ATN: - prerenal factors (low urine Na) - ARB use prior to admission - contrast exposure x 2 (on 10/21 and 10/[address] scans) - acute infection (cholecystitis) - relative hypotension * Still not making very much urine. * Catheter in right groin was guide wired and it worked better. * We will treat again today. * I wrote to remove 2-3 more L. he is on norepinephrine now At 2 mics and may need an increase in dose. his oxygenation improved with fluid off so I believe the trade off is a good 1. (2) Chronic kidney disease, stage III (moderate): Code(s): N18.3 - Chronic kidney disease, stage 3 (moderate) Status: Acute Assessment and Plan: * baseline creatinine ~ 1.2 - 1.5mg/dl * presumably due to DM, HTN, SOPHY, and age-related disease (3) Hyponatremia: Code(s): E87.1 - Hypo-osmolality and hyponatremia Status: Acute Assessment and Plan: * suspect due to GUSTABO/ARF * Sodium is still low. * This has not come up with dialysis. We use a 138 bath today. the higher sodium will allow us to remove fluid with better blood pressure tolerance and the lower sodium bath has not proven to over correct his serum sodium. (4) Acute cholecystitis: Code(s): K81.0 - Acute cholecystitis Status: Acute Assessment and Plan: * s/p laparoscopic cholecystectomy * afebrile. White blood cell count is fine. * Surgery On board (5) Acute respiratory failure with hypoxia: Code(s): J96.01 - Acute respiratory failure with hypoxia Status: Acute Assessment and Plan: * probably due to fluid retention and SOPHY/pulmonary hypertension * Dr. Yepez considering pulmonary embolism. Will get a CT with contrast and do dialysis afterwards. * On the ventilator. * Chest x-ray Shows some fluid. fluid removal has improved oxygenation. * CT chest negative for pulmonary embolism. * Negative for COVID (6) Diabetes: Code(s): E11.9 - Type 2 diabetes mellitus without complications Status: Acute Assessment and Plan: * follow accuchecks * on Lantus and SSI Will continue to follow. (7) Acidosis: Code(s): E87.2 - Acidosis Status: Acute Assessment and Plan: CO2 is Okay. Additional Plan Subjective Date/time seen: 11/03/19 08:40 Interval history: the patient is on the ventilator. [id number] to 70%. He is sedated with midazolam and fentanyl. He had dialysis yesterday which worked pretty well. 3L were removed. Review of Systems Review of Systems: ROS unobtainable: Yes unobtainable due to endotracheal tube Exam Narrative: Exam Narrative: General: WD/WN male in NAD; BiPAP in place Heart: normal S1 and S2; no rub or gallop Lungs: coarse breath sounds throughout Abdomen: soft, nontender. Bowel sounds positive. Extremities: 1+ edema Skin: No rash Or subcu nodules Objective Data Vital Signs Vital Signs: Vital Signs - 24 hr 11/02/19 09:36 11/02/19 10:00 11/02/19 10:47 Temperature Pulse Rate 65 63 69 Respiratory Rate 22 H 23 H 21 H Blood Pressure 162/62 H Pulse Oximetry 92
--- NOTE | 2019-11-03 08:40 | PM.PNNEP ---
Progress Note: A&P Assessment and Plan (1) GUSTABO (acute kidney injury): Code(s): N17.9 - Acute kidney failure, unspecified Status: Acute Assessment and Plan: multifactorial ATN: - prerenal factors (low urine Na) - ARB use prior to admission - contrast exposure x 2 (on 10/21 and 10/[address] scans) - acute infection (cholecystitis) - relative hypotension Still not making very much urine. Catheter in right groin was guide wired and it worked better. We will treat again today. I wrote to remove 2-3 more L. he is on norepinephrine now At 2 mics and may need an increase in dose. his oxygenation improved with fluid off so I believe the trade off is a good 1. (2) Chronic kidney disease, stage III (moderate): Code(s): N18.3 - Chronic kidney disease, stage 3 (moderate) Status: Acute Assessment and Plan: baseline creatinine ~ 1.2 - 1.5mg/dl presumably due to DM, HTN, SOPHY, and age-related disease (3) Hyponatremia: Code(s): E87.1 - Hypo-osmolality and hyponatremia Status: Acute Assessment and Plan: suspect due to GUSTABO/ARF Sodium is still low. This has not come up with dialysis. We use a 138 bath today. the higher sodium will allow us to remove fluid with better blood pressure tolerance and the lower sodium bath has not proven to over correct his serum sodium. (4) Acute cholecystitis: Code(s): K81.0 - Acute cholecystitis Status: Acute Assessment and Plan: s/p laparoscopic cholecystectomy afebrile. White blood cell count is fine. Surgery On board (5) Acute respiratory failure with hypoxia: Code(s): J96.01 - Acute respiratory failure with hypoxia Status: Acute Assessment and Plan: probably due to fluid retention and SOPHY/pulmonary hypertension Dr. Yepez considering pulmonary embolism. Will get a CT with contrast and do dialysis afterwards. On the ventilator. Chest x-ray Shows some fluid. fluid removal has improved oxygenation. CT chest negative for pulmonary embolism. Negative for COVID (6) Diabetes: Code(s): E11.9 - Type 2 diabetes mellitus without complications Status: Acute Assessment and Plan: follow accuchecks on Lantus and SSI Will continue to follow. (7) Acidosis: Code(s): E87.2 - Acidosis Status: Acute Assessment and Plan: CO2 is Okay. Additional Plan Subjective Date/time seen: 11/03/19 08:40 Interval history: the patient is on the ventilator. [id number] to 70%. He is sedated with midazolam and fentanyl. He had dialysis yesterday which worked pretty well. 3L were removed. Review of Systems Review of Systems: ROS unobtainable: Yes unobtainable due to endotracheal tube Exam Narrative: Exam Narrative: General: WD/WN male in NAD; BiPAP in place Heart: normal S1 and S2; no rub or gallop Lungs: coarse breath sounds throughout Abdomen: soft, nontender. Bowel sounds positive. Extremities: 1+ edema Skin: No rash Or subcu nodules Objective Data Vital Signs Vital Signs: Vital Signs - 24 hr 11/02/19 09:36 11/02/19 10:00 11/02/19 10:47 Temperature Pulse Rate 65 63 69 Respiratory Rate 22 H 23 H 21 H Blood Pressure 162/62 H Pulse Oximetry 92 11/02/19 12:00 11/02/19 12:06 11/02/19 14:00 Temperature 36.7 C 36.7 C Pulse Rate 64 69 69 Respiratory Rate 16 21 H 22 H Blood Pressure 112/58 L 99/63 L Pulse Oximetry 93 94 11/02/19 14:30 11/02/19 16:00 11/02/19 17:35 Temperature 37.0 C Pulse Rate 63 62 63 Respiratory Rate 22 H Blood Pressure 100/59 L Pulse Oximetry 92 93 92 11/02/19 18:00 11/02/19 18:04 11/02/19 20:00 Temperature 37.1 C Pulse Rate 58 L 58 L 60 Respiratory Rate 14 22 H 22 H Blood Pressure 91/59 L 96/51 L Pulse Oximetry 95 92 11/02/19 20:21 11/02/19 20:30 11/02/19 20:40 Temperature 36.7 C Pu
[2019-11-03] MEDS: ASPIRIN 81 MG ENTERIC TABLET PO (08:52)
[2019-11-03] MEDS: ATORVASTATIN 40 MG TABLET PO (08:52)
[2019-11-03] MEDS: PANTOPRAZOLE SODIUM IV 40 MG VIAL IV PUSH (08:53)
[2019-11-03] MEDS: INSULIN DETEMIR 100 UNITS/ML SUB-Q ×2 (09:04→21:34)
[2019-11-03] MEDS: INSULIN GLARGINE (*BKC) 100 UNITS/ML 22 UNITS SUB-Q (09:04)
--- NOTE | 2019-11-03 11:13 | PCDIET ---
ICU Rounding Note: Tube feedings have been on hold; however, MD ordered to start Nepro at 20mL/hr today. Last recorded weight is 127.3kg which is stable. Patient had 3L UF yesterday with plan for dialysis again today. Bowel Motility: BM x 1 today. Labs Reviewed: Hgb (10.3), Hct (29.6), Glu (219), BUN (70), Cr (7.8), Na (124), PO4 (9.9), Ca (8.2) Meds Noted: Albumin, Atrovent, Protonix, Albuterol, Novolog, Solu Medrol, Zosyn, Colace, Levemir, Versed, Miralax, Fentanyl, Lantus, Levophed, Vancomycin Additional Notes: FiO2 decreased to 70%. No skin issues reported other than surgical sites on abdomen. Following daily in ICU rounds. Assessing/reassessing every Thursday/Thursday.
[2019-11-03 11:53] LABS: Glucose Point of Care 249 (65-105)
--- NOTE | 2019-11-03 12:29 | WPDINTPN ---
Progress Note: A&P Assessment and Plan (1) Acute respiratory failure: Qualifiers: Respiratory failure complication: hypercapnia Qualified Code(s): J96.02 - Acute respiratory failure with hypercapnia Code(s): J96.00 - Acute respiratory failure, unspecified whether with hypoxia or hypercapnia Status: Acute Assessment and Plan: patient presented with hypercapnic respiratory failure most likely related to volume overload from acute on chronic kidney disease, could also be related to obstructive sleep apnea, obesity hypoventilation syndrome, pulmonary hypertension - Patient intubated on 10/30/2019: Remains on CMV mode of ventilation, peep of 5, 80% FiO2. Will wean FiO2 and PEEP. - CTA chest done on 10/31 was negative for PE, multisegmental lower lobe and subsegmental upper lobe atelectasis difficult to exclude superimposed infection - started patient on vancomycin and cefepime on 10/31 - patient on fentanyl and Versed infusion for sedation, maintain RASS of 0 to -2, daily sedation vacation - continue bronchodilators - started patient on Flolan on 10/31 - continue dialysis with aggressive removal (2) GUSTABO (acute kidney injury): Code(s): N17.9 - Acute kidney failure, unspecified Status: Acute Assessment and Plan: patient with history of chronic kidney disease stage 3, now with acute kidney injury requiring dialysis. Dialysis catheter was placed in the right femoral vein on 10/28, not functioning well, surgery inserted a new dialysis catheter in the left IJ on 10/31/2019 - dialysis per Nephrology - hyponatremia and metabolic acidosis improved post dialysis - discussed with Nephrology, will get dialyzed today again (3) Acute cholecystitis: Code(s): K81.0 - Acute cholecystitis Status: Acute Assessment and Plan: patient presented on 10/23/2019 with acute cholecystitis, status post laparoscopic cholecystectomy on 10/25/2019 surgery following the patient will restart tube feeds (4) Hyponatremia: Code(s): E87.1 - Hypo-osmolality and hyponatremia Status: Acute Assessment and Plan: Improving - hyponatremia likely related to hypovolemia secondary to volume overload due to acute on chronic kidney disease - patient to get dialyzed per Nephrology (5) Diabetes mellitus: Qualifiers: Diabetes mellitus type: type 2 Diabetes mellitus jail insulin use: with jail use Diabetes mellitus complication status: with other specified complication Qualified Code(s): E11.69 - Type 2 diabetes mellitus with other specified complication; 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 - Started on Levophed low-dose, - continue antibiotics - blood and sputum cultures have been obtained and pending Additional Plan discussed with and updated her with patient's condition and plan of care. I answered all questions. restarting tube feed code status: do not resuscitate critical care time spent: 34 minutes Due to a high probability of clinically significant, life threatening deterioration, the patient required my highest level of preparedness to intervene emergently and I personally spent this critical care time directly and personally managing the patient. This critical care time included obtaining a history; exa
--- NOTE | 2019-11-03 14:08 | PM.PNPUL ---
Progress Note: A&P Assessment and Plan (1) Acute respiratory failure: Qualifiers: Respiratory failure complication: hypercapnia Qualified Code(s): J96.02 - Acute respiratory failure with hypercapnia Code(s): J96.00 - Acute respiratory failure, unspecified whether with hypoxia or hypercapnia Status: Acute Assessment and Plan: Multifactorial, post op with atelectesis, possible COPD and SOPHY - consider discontinuing Flolan as no signficant evidence it that is is efficacious in his condidtion. Nebulized bronchodilators are need to prevent mucous plugging and help with clearance or respiratory secretions - increase PEEP to 8-10 while intubated - weaning trial, minimize sedation - extubate to BIPAP 20/6 with backup rate of 14-16. - avoid narcotics and sedatives once extubation - early mobilization once extubated - Albuterol 2.5 mg/Atrovent 0.5 mg Nebs Q6h - DVT prophylaxis Time Spent With Patient Time with patient: 15 - 25 minutes Subjective Date/time seen: 11/03/19 14:08 Interval history: Still intubated and sedated. Has bilateral diffuse atelectesis which is improving with higher PEEP. Underlying pneumonia cannot be ruled out. Review of Systems Review of Systems: All systems reviewed & are unremarkable except as noted in HPI and below Exam Narrative: Exam Narrative: intubated and sedated Const: General: comfortable and no acute distress Neck: Neck: supple and no JVD Resp: Auscultation: clear to auscultation bilaterally and diminished lung sounds Cardio: Rate: regular rate Rhythm: regular rhythm Heart sounds: no murmurs Skin: General skin exam: normal color Neuro: Other: intubated and sedated Objective Data Vital Signs Vital Signs: Vital Signs - 24 hr 11/02/19 14:30 11/02/19 16:00 11/02/19 17:35 Temperature 37.0 C Pulse Rate 63 62 63 Respiratory Rate 22 H Blood Pressure 100/59 L Pulse Oximetry 92 93 92 11/02/19 18:00 11/02/19 18:04 11/02/19 20:00 Temperature 37.1 C Pulse Rate 58 L 58 L 60 Respiratory Rate 14 22 H 22 H Blood Pressure 91/59 L 96/51 L Pulse Oximetry 95 92 11/02/19 20:21 11/02/19 20:30 11/02/19 20:40 Temperature 36.7 C Pulse Rate 59 L 65 60 Respiratory Rate 22 H 14 Blood Pressure 98/57 L 88/53 L Pulse Oximetry 95 93 11/02/19 20:49 11/02/19 21:00 11/02/19 21:15 Temperature Pulse Rate 72 63 63 Respiratory Rate Blood Pressure 93/62 L 154/68 H 113/61 Pulse Oximetry 11/02/19 21:30 11/02/19 21:45 11/02/19 21:46 Temperature Pulse Rate 66 66 57 L Respiratory Rate 22 H Blood Pressure 89/51 L 103/59 L 103/59 L Pulse Oximetry 11/02/19 22:00 11/02/19 22:01 11/02/19 22:15 Temperature Pulse Rate 72 72 77 Respiratory Rate 18 22 H Blood Pressure 115/57 L 93/60 L Pulse Oximetry 92 92 11/02/19 22:31 11/02/19 22:45 11/02/19 23:00 Temperature Pulse Rate 74 74 71 Respiratory Rate Blood Pressure 106/61 94/58 L 97/52 L Pulse Oximetry 11/02/19 23:15 11/02/19 23:30 11/02/19 23:46 Temperature Pulse Rate 72 80 78 Respiratory Rate 22 H Blood Pressure 87/51 L 88/59 L 105/58 L Pulse Oximetry 93 11/03/19 00:00 11/03/19 00:10 11/03/19 02:00 Temperature 36.9 C 36.9 C Pulse Rate 81 77 67 Respiratory Rate 22 H 12 22 H Blood Pressure 85/60 L 121/61 116/54 L Pulse Oximetry 93 95 96 11/03/19 02:03 11/03/19 03:46 11/03/19 04:00 Temperature 36.8 C Pulse Rate 67 70 63 Respiratory Rate 22 H 22 H 22 H Blood Pressure 92/56 L Pulse Oximetry 96 94 96 11/03/19 05:58 11/03/19 06:00 11/03/19 06:40 Temperature Pulse Rate 62 64 64 Respiratory Rate 23 H 22 H 22 H Blood Pressure 101/55 L Pulse Oximetry 97 96 11/03/19 07:00 11/03/19 07:30 11/03/19 08:00 Temperature 37.1 C Pulse Rate 70 66 62 Respiratory Rate 14 22 H 16 Blood Pressure 95/53 L 89/55 L Pulse Oximetry 96 96 11/03/19 08:49 11/03/19 10:00 11/03/19 10:45 Temperature Pulse Rate 63 60 60 R
[2019-11-03 15:35] LABS: Alveolar/Arterial O2 Gradient 276.1 mmHg; Base Excess ABG -1.2 mEq/l (+/-2.0); Carboxyhemoglobin 0.3 % THb (0-2.0); Device VENTILATOR; Fractional Inspired Oxygen 60 %; HCO3 ABG 25.2 mEq/l (22.0-26.0); Methemoglobin ABG 0.3 %THb (0-1.5); Modified Allen's Test Pass; Oxygen Content ABG 14.6 %vol (16.0-22.0); Oxygen Saturation ABG 96.9 % (95.0-100.0); Oxyhemoglobin 95.3 % THb (90.0-100.0); PCO2 ABG 49.5 mmHg (35.0-45.0); PO2 ABG 97.3 mmHg (80.0-100.0); PO2 FiO2 Ratio Arterial Blood 1.62 %; Reduced Hemoglobin 4.1 %THb (0-5.0); Site Drawn LEFT RADIAL; Total Hemoglobin 10.8 g/dL (12.0-18.0); pH ABG 7.324 (7.350-7.450)
[2019-11-03 15:36] LABS: Arterial Blood Gas PEEP 10 cmH2O; Arterial Blood Gas Pressure Support 0 cmH2O; Arterial Blood Gas Tidal Volume 450 ml; Arterial Blood Gas Vent Mode CMV; Arterial Blood Gas Ventilator rate 22 /MIN; Peak Inspiratory Pressure 0 cmH2O
[2019-11-03 16:11] LABS: Chloride Rand Ur <20 mmol/L (32-290); Creatinine Random Urine 129 mg/dL (20-320)
[2019-11-03] MEDS: methylPREDNISolone SOD SUCC 40 MG VIAL IV PUSH (19:03)
[2019-11-03 19:11] LABS: Alveolar/Arterial O2 Gradient 355.2 mmHg; Base Excess ABG 1.9 mEq/l (+/-2.0); Carboxyhemoglobin 0.3 % THb (0-2.0); Fractional Inspired Oxygen 70 %; HCO3 ABG 28.1 mEq/l (22.0-26.0); Methemoglobin ABG 0.2 %THb (0-1.5); Oxygen Content ABG 16.6 %vol (16.0-22.0); Oxygen Saturation ABG 96.5 % (95.0-100.0); Oxyhemoglobin 94.7 % THb (90.0-100.0); PCO2 ABG 50.6 mmHg (35.0-45.0); PO2 ABG 89.5 mmHg (80.0-100.0); PO2 FiO2 Ratio Arterial Blood 1.28 %; Reduced Hemoglobin 4.8 %THb (0-5.0); Total Hemoglobin 12.4 g/dL (12.0-18.0); pH ABG 7.362 (7.350-7.450)
[2019-11-03 19:12] LABS: Device VENTILATOR; Modified Allen's Test Unable to perform; Site Drawn RIGHT RADIAL
[2019-11-03 19:13] LABS: Arterial Blood Gas PEEP 10 cmH2O; Arterial Blood Gas Tidal Volume 450 ml; Arterial Blood Gas Vent Mode CMV; Arterial Blood Gas Ventilator rate 22 /MIN
--- NOTE | 2019-11-03 20:22 | PC.NURSE ---
Evening medications late administered due to dialysis treatment.
[2019-11-03 21:24] LABS: Glucose Point of Care 181 (65-105)
[2019-11-03] MEDS: SODIUM CHLORIDE 0.9% IV 1,000 ML 75 ML ×2 (21:28→21:29)
[2019-11-03] MEDS: HEPARIN SODIUM 1,000 UNITS/ML VIAL 6000 UNITS (21:28)
[2019-11-03] MEDS: DOCUSATE SODIUM 100 MG CAPSULE PO (21:38)
[2019-11-03] MEDS: NOREPINEPHRINE 8 MG/D5W 250 ML 8 MG/250 ML BAG 15 MG IV CONT (22:08)
[2019-11-03 22:50] LABS: Vancomycin Random 18.3 ug/mL (10-20)
[2019-11-03 23:57] LABS: Glucose Point of Care 242 (65-105)
[2019-11-04] VITALS (62 sets, daily range): BP systolic 80–134; BP diastolic 49–67; PULSE 65–99; RESP 12–28; TEMP 35.5–37.3; O2SAT 84–97
[2019-11-04] MEDS: INSULIN ASPART (*BKC) 100 UNITS/ML SUB-Q ×4 (00:12→23:31)
[2019-11-04 00:58] LABS: Alveolar/Arterial O2 Gradient 291.7 mmHg; Base Excess ABG 1.8 mEq/l (+/-2.0); Carboxyhemoglobin 0.3 % THb (0-2.0); Fractional Inspired Oxygen 60 %; HCO3 ABG 27.9 mEq/l (22.0-26.0); Methemoglobin ABG 0.1 %THb (0-1.5); Oxygen Content ABG 15.4 %vol (16.0-22.0); Oxygen Saturation ABG 95.3 % (95.0-100.0); Oxyhemoglobin 94.1 % THb (90.0-100.0); PCO2 ABG 50.8 mmHg (35.0-45.0); PO2 ABG 80.2 mmHg (80.0-100.0); PO2 FiO2 Ratio Arterial Blood 1.34 %; Reduced Hemoglobin 5.5 %THb (0-5.0); Site Drawn LEFT RADIAL; Total Hemoglobin 11.6 g/dL (12.0-18.0); pH ABG 7.358 (7.350-7.450)
[2019-11-04 00:59] LABS: Arterial Blood Gas PEEP 10 cmH2O; Arterial Blood Gas Tidal Volume 450 ml; Arterial Blood Gas Vent Mode CMV; Arterial Blood Gas Ventilator rate 22 /MIN; Device VENTILATOR; Modified Allen's Test Unable to perform
[2019-11-04] MEDS: EPOPROSTENOL SODIUM 0.5 MG VIAL 1 MG INHALATION ×2 (03:54→09:59)
[2019-11-04 05:26] LABS: Hematocrit 29.6 % (42.0-52.0); Hemoglobin 10.4 g/dL (14.0-18.0); Mean Corpuscular HGB Conc 35.1 g/dl (32-36); Mean Corpuscular Hemoglobin 31.1 pg (26-34); Mean Corpuscular Volume 88.6 fl (80-100); Mean Platelet Volume 10.2 fl (7.4-10.4); Platelet Count Result 239 k/mm3 (150-375); Red Blood Count 3.34 M/mm3 (4.6-6.20); Red Cell Distribution Width 12.6 % (11.5-14.5); White Blood Count 21.5 K/mm3 (4.5-10.0)
[2019-11-04 05:41] LABS: Anion Gap 16.8 mmol/L (7-16); Blood Urea Nitrogen 70 mg/dL (9-20); Calcium 8.2 mg/dL (8.4-10.2); Carbon Dioxide 29 mmol/L (22-30); Chloride 84 mmol/L (98-107); Estimated CRCL calculation 9 ml/min; Estimated Glomerular Filt Rate 7; Glucose 268 mg/dL (75-110); Magnesium 2.3 mg/dL (1.6-2.3); Phosphorus 8.6 mg/dL (2.5-4.5); Potassium 4.8 mmol/L (3.4-5.0); Sodium 125 mmol/L (137-145)
[2019-11-04] MEDS: CENTRAL LINE FLUSH 10 ML IV PUSH ×4 (05:58→20:52)
[2019-11-04] MEDS: methylPREDNISolone SOD SUCC 40 MG VIAL IV PUSH (06:03)
[2019-11-04] MEDS: HEPARIN SODIUM 5,000 UNITS/ML VIAL 5000 UNITS SUB-Q ×3 (06:03→20:56)
[2019-11-04 07:32] LABS: Alveolar/Arterial O2 Gradient 267.9 mmHg; Base Excess ABG 0.1 mEq/l (+/-2.0); Carboxyhemoglobin 0.3 % THb (0-2.0); Fractional Inspired Oxygen 60 %; HCO3 ABG 27.1 mEq/l (22.0-26.0); Methemoglobin ABG 0.3 %THb (0-1.5); Oxygen Content ABG 19.2 %vol (16.0-22.0); Oxygen Saturation ABG 97.1 % (95.0-100.0); Oxyhemoglobin 95.9 % THb (90.0-100.0); PCO2 ABG 53.4 mmHg (35.0-45.0); PO2 ABG 101.2 mmHg (80.0-100.0); PO2 FiO2 Ratio Arterial Blood 1.69 %; Reduced Hemoglobin 3.5 %THb (0-5.0); Total Hemoglobin 14.2 g/dL (12.0-18.0); pH ABG 7.323 (7.350-7.450)
[2019-11-04 07:33] LABS: Device VENTILATOR; Modified Allen's Test Pass; Site Drawn LEFT RADIAL
[2019-11-04 07:35] LABS: Arterial Blood Gas PEEP 10 cmH2O; Arterial Blood Gas Tidal Volume 450 ml; Arterial Blood Gas Vent Mode CMV; Arterial Blood Gas Ventilator rate 22 /MIN
[2019-11-04] MEDS: ASPIRIN 81 MG ENTERIC TABLET PO (08:00)
[2019-11-04] MEDS: ATORVASTATIN 40 MG TABLET PO (08:00)
[2019-11-04] MEDS: PANTOPRAZOLE SODIUM IV 40 MG VIAL IV PUSH (08:01)
[2019-11-04] MEDS: polyethylene glycoL 3350 17 GM POWD.PACK PO (08:01)
[2019-11-04] MEDS: INSULIN DETEMIR 100 UNITS/ML SUB-Q ×2 (08:15→20:56)
[2019-11-04] MEDS: INSULIN GLARGINE (*BKC) 100 UNITS/ML 22 UNITS SUB-Q (08:16)
--- NOTE | 2019-11-04 08:52 | WPDINTPN ---
Progress Note: A&P Assessment and Plan (1) Acute respiratory failure: Qualifiers: Respiratory failure complication: hypercapnia Qualified Code(s): J96.02 - Acute respiratory failure with hypercapnia Code(s): J96.00 - Acute respiratory failure, unspecified whether with hypoxia or hypercapnia Status: Acute Assessment and Plan: patient presented with hypercapnic respiratory failure most likely related to volume overload from acute on chronic kidney disease, could also be related to obstructive sleep apnea, obesity hypoventilation syndrome, pulmonary hypertension - Patient intubated on 10/30/2019: Remains on CMV mode of ventilation, peep of 5, 80% FiO2. Will wean FiO2 and PEEP. - CTA chest done on 10/31 was negative for PE, multisegmental lower lobe and subsegmental upper lobe atelectasis difficult to exclude superimposed infection - started patient on vancomycin and cefepime on 10/31 - patient on fentanyl and Versed infusion for sedation, maintain RASS of 0 to -2, daily sedation vacation - continue bronchodilators - started patient on Flolan on 10/31 - wean off today - continue dialysis with aggressive removal (2) GUSTABO (acute kidney injury): Code(s): N17.9 - Acute kidney failure, unspecified Status: Acute Assessment and Plan: patient with history of chronic kidney disease stage 3, now with acute kidney injury requiring dialysis. Dialysis catheter was placed in the right femoral vein on 10/28, not functioning well, surgery inserted a new dialysis catheter in the left IJ on 10/31/2019 - dialysis per Nephrology - hyponatremia and metabolic acidosis improved post dialysis (3) Acute cholecystitis: Code(s): K81.0 - Acute cholecystitis Status: Acute Assessment and Plan: patient presented on 10/23/2019 with acute cholecystitis, status post laparoscopic cholecystectomy on 10/25/2019 surgery following the patient will restart tube feeds (4) Hyponatremia: Code(s): E87.1 - Hypo-osmolality and hyponatremia Status: Acute Assessment and Plan: Improving - hyponatremia likely related to hypovolemia secondary to volume overload due to acute on chronic kidney disease - patient to get dialyzed per Nephrology (5) Diabetes mellitus: Qualifiers: Diabetes mellitus complication status: with other specified complication Diabetes mellitus senior living insulin use: with senior living use Diabetes mellitus type: type 2 Qualified Code(s): E11.69 - Type 2 diabetes mellitus with other specified complication; Z79.4 - terminal supervisor (current) use of insulin Code(s): E11.9 - Type 2 diabetes mellitus without complications Status: Acute Assessment and Plan: patient with history of time with neuropathy, skin issues and renal complications - continue Accu-Cheks, sliding scale andstarted detemir (6) DVT prophylaxis: Code(s): Z29.9 - Encounter for prophylactic measures, unspecified Status: Acute Assessment and Plan: DVT prophylaxis; on SQ heparin stress ulcer prophylaxis: continue Protonix (7) Shock: Code(s): R57.9 - Shock, unspecified Status: Acute Assessment and Plan: patient with hypotension related to infection. - Started on Levophed low-dose, - continue antibiotics - blood and sputum cultures have been obtained and pending Additional Plan discussed with and updated her with patient's condition and plan of care. I answered all questions. restarting tube feed code status: do not resuscitate critical care time spent: 33 minutes Due to a high probability of clinically significant, life threatening deterioration, the patient required my highest level of preparedness to intervene emergently and I personally spent this critical care time directly and personally managing the patient. This critical care time included obtaining a history; examining the patient; pulse oximetry; ordering
--- NOTE | 2019-11-04 11:12 | PCDIET ---
Nutrition Follow-Up Complete: Nutrition Diagnosis: Inadequate oral intake related to oral intubation as evidenced by NPO status. Nutrition Goal: Patient to meet estimated nutritional needs. Goal in progress. Patient has been receiving Nepro at 20mL/hr without issue. Obtained MD order to advance Nepro toward goal of 50mL/hr for 1980kcal, 89g protein and 800mL free water over 22 hours/day. Last recorded weight is 124.7 kg which is down from last review. -I/O. Bowel Motility: BM x 1 on 11/03/19. Labs Reviewed: Hgb (10.4), Hct (29.6), Glu (268), BUN (70), Cr (7.6), Na (125), Ca (8.2), PO4 (8.6) Meds Noted: Albumin, Albuterol, Colace, Fentanyl, Novolog, Levemir, Lantus, Atrovent, Solu Medrol, Versed, Levophed, Protonix, Zosyn, Miralax, Vancomycin Additional Notes: Patient had 3L fluid removed 11/03/19 in dialysis, per RN. Abdominal incisions well approximated. No documented pressure ulcers. Will continue to monitor with same goal. Nutrition Monitoring and Evaluation: Follow up every Thursday/Thursday. Follow daily in ICU rounds.
[2019-11-04 11:51] LABS: Glucose Point of Care 231 (65-105)
[2019-11-04] MEDS: NOREPINEPHRINE 8 MG/D5W 250 ML 8 MG/250 ML BAG 18.8 MG IV CONT (13:14)
--- NOTE | 2019-11-04 14:02 | PM.PNPUL ---
Progress Note: A&P Assessment and Plan (1) Acute respiratory failure: Qualifiers: Respiratory failure complication: hypercapnia Qualified Code(s): J96.02 - Acute respiratory failure with hypercapnia Code(s): J96.00 - Acute respiratory failure, unspecified whether with hypoxia or hypercapnia Status: Acute Assessment and Plan: Multifactorial, post op with atelectesis, possible COPD and SOPHY - consider discontinuing Flolan as no signficant evidence it that is is efficacious in his condidtion. Nebulized bronchodilators are need to prevent mucous plugging and help with clearance or respiratory secretions - increase PEEP to 8-10 while intubated - weaning trial, minimize sedation - extubate to BIPAP 20/6 with backup rate of 14-16. - avoid narcotics and sedatives once extubation - early mobilization once extubated - Albuterol 2.5 mg/Atrovent 0.5 mg Nebs Q6h - DVT prophylaxis - systemic steroids discontinued Subjective Date/time seen: 11/04/19 14:02 Interval history: Stable, oxygenation down to 50%. Still on Flolan. Review of Systems Review of Systems: All systems reviewed & are unremarkable except as noted in HPI and below Exam Narrative: Exam Narrative: intubated and sedated Const: General: comfortable and no acute distress Neck: Neck: supple and no JVD Resp: Auscultation: clear to auscultation bilaterally and diminished lung sounds Cardio: Rate: regular rate Rhythm: regular rhythm Heart sounds: no murmurs Skin: General skin exam: normal color Neuro: Other: intubated and sedated Objective Data Vital Signs Vital Signs: Vital Signs - 24 hr 11/03/19 14:36 11/03/19 16:00 11/03/19 16:36 Temperature 36.4 C L 37.0 C Pulse Rate 66 71 71 Respiratory Rate 22 H 22 H 12 Blood Pressure 108/49 L 106/51 L Pulse Oximetry 94 93 90 11/03/19 17:23 11/03/19 17:30 11/03/19 17:45 Temperature Pulse Rate 69 69 73 Respiratory Rate Blood Pressure 108/54 L 102/54 L 74/43 L Pulse Oximetry 11/03/19 17:58 11/03/19 18:00 11/03/19 18:15 Temperature Pulse Rate 73 71 73 Respiratory Rate 25 H 22 H Blood Pressure 113/53 L 86/50 L Pulse Oximetry 89 L 93 11/03/19 18:30 11/03/19 18:45 11/03/19 19:00 Temperature Pulse Rate 74 75 79 Respiratory Rate Blood Pressure 85/51 L 107/50 L 96/52 L Pulse Oximetry 11/03/19 19:15 11/03/19 19:30 11/03/19 19:45 Temperature Pulse Rate 60 81 Respiratory Rate Blood Pressure 95/55 L 94/57 L 104/50 L Pulse Oximetry 11/03/19 20:00 11/03/19 20:01 11/03/19 20:15 Temperature 36.6 C Pulse Rate 80 85 84 Respiratory Rate 15 22 H Blood Pressure 109/56 L 72/44 L Pulse Oximetry 96 96 11/03/19 20:17 11/03/19 20:20 11/03/19 20:23 Temperature Pulse Rate 83 82 89 Respiratory Rate Blood Pressure 72/44 L 69/43 L 156/56 H Pulse Oximetry 11/03/19 20:26 11/03/19 20:30 11/03/19 20:41 Temperature Pulse Rate 83 88 94 Respiratory Rate Blood Pressure 154/56 H 133/59 L 133/59 L Pulse Oximetry 11/03/19 20:45 11/03/19 21:00 11/03/19 21:05 Temperature Pulse Rate 89 89 89 Respiratory Rate Blood Pressure 116/63 107/52 L 123/57 L Pulse Oximetry 11/03/19 21:07 11/03/19 21:13 11/03/19 21:34 Temperature 36.6 C Pulse Rate 87 90 84 Respiratory Rate 21 H Blood Pressure 126/58 L 126/58 L 124/55 L Pulse Oximetry 11/03/19 21:47 11/03/19 21:59 11/03/19 22:00 Temperature Pulse Rate 84 85 87 Respiratory Rate 22 H 19 Blood Pressure 119/53 L 112/56 L Pulse Oximetry 97 98 11/03/19 22:08 11/03/19 22:15 11/04/19 00:00 Temperature 37.3 C Pulse Rate 83 79 75 Respiratory Rate 19 Blood Pressure 112/56 L 103/48 L 113/60 Pulse Oximetry 95 11/04/19 00:09 11/04/19 01:54 11/04/19 02:00 Temperature Pulse Rate 76 75 75 Respiratory Rate 22 H 22 H 22 H Blood Pressure 122/59 L Pulse Oximetry 96 96 95 11/04/19 03:58 11/04/19 04:00 11/04/19 05:47 Temp
--- NOTE | 2019-11-04 15:01 | P.PNNP_ITS ---
Progress Note: A&P Assessment and Plan (1) GUSTABO (acute kidney injury): Code(s): N17.9 - Acute kidney failure, unspecified Status: Acute Assessment and Plan: * multifactorial ATN: - prerenal factors (low urine Na) - ARB use prior to admission - contrast exposure x 2 (on 10/21 and 10/[address] scans) - acute infection (cholecystitis) - relative hypotension * Continue dialysis treatments. * Will try to remove more fluid today. discussed with Dr. Lopez (2) Chronic kidney disease, stage III (moderate): Code(s): N18.3 - Chronic kidney disease, stage 3 (moderate) Status: Acute Assessment and Plan: * baseline creatinine ~ 1.2 - 1.5mg/dl * presumably due to DM, HTN, SOPHY, and age-related disease (3) Hyponatremia: Code(s): E87.1 - Hypo-osmolality and hyponatremia Status: Acute Assessment and Plan: * suspect due to GUSTABO/ARF * Sodium is still low but it is stable. * He has lots of obligate IV fluids which are hypotonic (4) Acute cholecystitis: Code(s): K81.0 - Acute cholecystitis Status: Acute Assessment and Plan: * s/p laparoscopic cholecystectomy * afebrile. White blood cell count is fine. * Surgery On board (5) Acute respiratory failure with hypoxia: Code(s): J96.01 - Acute respiratory failure with hypoxia Status: Acute Assessment and Plan: * probably due to fluid retention and SOPHY/pulmonary hypertension * oxygenation improving with fluid removal * Chest x-ray Shows some fluid. * CT chest negative for pulmonary embolism. * Negative for COVID (6) Diabetes: Code(s): E11.9 - Type 2 diabetes mellitus without complications Status: Acute Assessment and Plan: * follow accuchecks * on Lantus and SSI Will continue to follow. (7) Acidosis: Code(s): E87.2 - Acidosis Status: Acute Assessment and Plan: CO2 is Okay. Additional Plan Subjective Date/time seen: 11/04/19 15:01 Interval history: the patient is on the ventilator. UlD3Hmhe to 50% He is sedated with midazolam and fentanyl. his blood pressures are reasonable now. He is still on norepinephrine though. Review of Systems Review of Systems: ROS unobtainable: Yes unobtainable due to endotracheal tube Exam Narrative: Exam Narrative: General: WD/WN male in NAD; BiPAP in place Heart: normal S1 and S2; no rub or gallop Lungs: coarse breath sounds throughout Abdomen: soft, nontender. Bowel sounds positive. Extremities: 1+ edema Skin: No rash Or subcu nodules Objective Data Vital Signs Vital Signs: Vital Signs - 24 hr 11/03/19 16:00 11/03/19 16:36 11/03/19 17:23 Temperature 36.4 C L 37.0 C Pulse Rate 71 71 69 Respiratory Rate 22 H 12 Blood Pressure 108/49 L 106/51 L 108/54 L Pulse Oximetry 93 90 11/03/19 17:30 11/03/19 17:45 11/03/19 17:58 Temperature Pulse Rate 69 73 73 Respiratory Rate 25 H Blood Pressure 102/54 L 74/43 L Pulse Oximetry 89 L 11/03/19 18:00 11/03/19 18:15 11/03/19 18:30 Temperature Pulse Rate 71 73 74 Respiratory Rate 22 H Blood Pressure 113/53 L 86/50 L 85/51 L P
--- NOTE | 2019-11-04 15:01 | PM.PNNEP ---
Progress Note: A&P Assessment and Plan (1) GUSTABO (acute kidney injury): Code(s): N17.9 - Acute kidney failure, unspecified Status: Acute Assessment and Plan: multifactorial ATN: - prerenal factors (low urine Na) - ARB use prior to admission - contrast exposure x 2 (on 10/21 and 10/[address] scans) - acute infection (cholecystitis) - relative hypotension Continue dialysis treatments. Will try to remove more fluid today. discussed with Dr. Lopez (2) Chronic kidney disease, stage III (moderate): Code(s): N18.3 - Chronic kidney disease, stage 3 (moderate) Status: Acute Assessment and Plan: baseline creatinine ~ 1.2 - 1.5mg/dl presumably due to DM, HTN, SOPHY, and age-related disease (3) Hyponatremia: Code(s): E87.1 - Hypo-osmolality and hyponatremia Status: Acute Assessment and Plan: suspect due to GUSTABO/ARF Sodium is still low but it is stable. He has lots of obligate IV fluids which are hypotonic (4) Acute cholecystitis: Code(s): K81.0 - Acute cholecystitis Status: Acute Assessment and Plan: s/p laparoscopic cholecystectomy afebrile. White blood cell count is fine. Surgery On board (5) Acute respiratory failure with hypoxia: Code(s): J96.01 - Acute respiratory failure with hypoxia Status: Acute Assessment and Plan: probably due to fluid retention and SOPHY/pulmonary hypertension oxygenation improving with fluid removal Chest x-ray Shows some fluid. CT chest negative for pulmonary embolism. Negative for COVID (6) Diabetes: Code(s): E11.9 - Type 2 diabetes mellitus without complications Status: Acute Assessment and Plan: follow accuchecks on Lantus and SSI Will continue to follow. (7) Acidosis: Code(s): E87.2 - Acidosis Status: Acute Assessment and Plan: CO2 is Okay. Additional Plan Subjective Date/time seen: 11/04/19 15:01 Interval history: the patient is on the ventilator. [id number] to 50% He is sedated with midazolam and fentanyl. his blood pressures are reasonable now. He is still on norepinephrine though. Review of Systems Review of Systems: ROS unobtainable: Yes unobtainable due to endotracheal tube Exam Narrative: Exam Narrative: General: WD/WN male in NAD; BiPAP in place Heart: normal S1 and S2; no rub or gallop Lungs: coarse breath sounds throughout Abdomen: soft, nontender. Bowel sounds positive. Extremities: 1+ edema Skin: No rash Or subcu nodules Objective Data Vital Signs Vital Signs: Vital Signs - 24 hr 11/03/19 16:00 11/03/19 16:36 11/03/19 17:23 Temperature 36.4 C L 37.0 C Pulse Rate 71 71 69 Respiratory Rate 22 H 12 Blood Pressure 108/49 L 106/51 L 108/54 L Pulse Oximetry 93 90 11/03/19 17:30 11/03/19 17:45 11/03/19 17:58 Temperature Pulse Rate 69 73 73 Respiratory Rate 25 H Blood Pressure 102/54 L 74/43 L Pulse Oximetry 89 L 11/03/19 18:00 11/03/19 18:15 11/03/19 18:30 Temperature Pulse Rate 71 73 74 Respiratory Rate 22 H Blood Pressure 113/53 L 86/50 L 85/51 L Pulse Oximetry 93 11/03/19 18:45 11/03/19 19:00 11/03/19 19:15 Temperature Pulse Rate 75 79 60 Respiratory Rate Blood Pressure 107/50 L 96/52 L 95/55 L Pulse Oximetry 11/03/19 19:30 11/03/19 19:45 11/03/19 20:00 Temperature 36.6 C Pulse Rate 81 80 Respiratory Rate 15 Blood Pressure 94/57 L 104/50 L 109/56 L Pulse Oximetry 96 11/03/19 20:01 11/03/19 20:15 11/03/19 20:17 Temperature Pulse Rate 85 84 83 Respiratory Rate 22 H Blood Pressure 72/44 L 72/44 L Pulse Oximetry 96 11/03/19 20:20 11/03/19 20:23 11/03/19 20:26 Temperature Pulse Rate 82 89 83 Respiratory Rate Blood Pressure 69/43 L 156/56 H 154/56 H Pulse Oximetry 11/03/19 20:30 11/03/19 20:41 11/03/19 20:45 Tem
--- NOTE | 2019-11-04 16:57 | PM.IMPN ---
Progress Note: A&P Assessment and Plan (1) Acute cholecystitis: Code(s): K81.0 - Acute cholecystitis Status: Acute Assessment and Plan: POD#6 lap cholecystectomy.. Op note described gangrenous changes and friable tissue; pt is on IV zosyn (day 5). Zosyn is completed. (2) Acute respiratory failure with hypoxia: Code(s): J96.01 - Acute respiratory failure with hypoxia Status: Acute Assessment and Plan: Pt is on BIPAP for respiratory distress and labored breathing needing continuous BIPAP presently, pt will be transferred to IMU I will add steroids IV for patient Echocardiogram reviewed and shows good systolic function EF 65-75%, grade I diastolic dysfunction. CTA 10/22 shows no PE or other acute findings for that matter. Pt will need assessment for SOPHY as outpatient,Obese large neck and COPD Albuterol treatments started ABG today reveiwed improved pt still acidoitic 11/04/19 16:57 85-year-old male status post cholecystectomy on 10/25/2019 chronic kidney disease stage 3 patient developed hypoxia and was emergently intubated, most likely secondary to volume overload as patient was hydrated for acute kidney injury not requiring dialysis, also possibly due to hypoventilation due to morbid obesity, remains intubated, patient seen by slurry man had a emergent dialysis yesterday however there is no significant improvement in oxygenation as patient is requiring 100%, patient had dialysis and 3 L was removed on 11/01 and 11/02 there is no significant change and patient's respiratory status, patient is seen by slurry man, will have another dialysis today, seen by pulmonology recommending to dc Flolan it is not helping improved patient respiratory status, patient seen by rigger chief (3) GUSTABO (acute kidney injury): Code(s): N17.9 - Acute kidney failure, unspecified Status: Acute Assessment and Plan: No clear etiology , probably due to overdiuresis.Contrast dye. DM, post op PH 7.228, creat10 from 8.5 from 6.9 from 4.9 sodium is 118. Communicated with nephrology ?dialysis - first round Creat is worsening pt will benefit from dialysis pt had sumeet catheter and first round of dialysis today could not tolerate dialysis yesterday due to anxiety and SOB (4) Type 2 diabetes mellitus with other skin complications: Code(s): E11.628 - Type 2 diabetes mellitus with other skin complications Status: Acute Assessment and Plan: Continue ISS and add low dose long acting insulin q am. (5) Essential (primary) hypertension: Code(s): I10 - Essential (primary) hypertension Status: Acute Assessment and Plan: Hold his ARB and lasix given the GUSTABO (6) Hyperlipidemia LDL goal <70: Code(s): E78.5 - Hyperlipidemia, unspecified Status: Acute Assessment and Plan: Maintained on home statin therapy. (7) Hyponatremia: Code(s): E87.1 - Hypo-osmolality and hyponatremia Status: Acute Assessment and Plan: Was previously diuresed with home chlorthalidone and additional IV lasix due to lower extremity edema. Hold diuretics hyponatremia (8) Suspected sleep apnea: Code(s): R29.818 - Other symptoms and signs involving the nervous system Status: Acute Assessment and Plan: . Pt is on BIPAP for possible COPD excerbation, Consulted DR Baldwin, pulmunology. For recommendations. Pt will need OPD sleep study on discharge Pt transfered to [facility] Subjective Date/time seen: 11/04/19 16:57 85-year-old male status post cholecystectomy on 10/25/2019 chronic kidney disease stage 3 patient developed hypoxia and was emergently intubated, most likely secondary to volume overload as patient was hydrated for acute kidn
[2019-11-04 19:02] LABS: Glucose Point of Care 194 (65-105)
[2019-11-04 20:53] LABS: Glucose Point of Care 252 (65-105)
[2019-11-04] MEDS: ALBUTEROL SULFATE NEB 2.5 MG/0.5 ML INH INHALATION (21:06)
[2019-11-04] MEDS: IPRATROPIUM BR 0.02% INH SOLN 0.5 MG/2.5 ML VIAL INHALATION (21:06)
[2019-11-04] MEDS: DOCUSATE SODIUM LIQ 100 MG/10 ML UDC PO (21:58)
[2019-11-04 22:17] LABS: Vancomycin Random 13.4 ug/mL (10-20)
[2019-11-04 23:38] LABS: Glucose Point of Care 351 (65-105)
[2019-11-05] VITALS (60 sets, daily range): BP systolic 80–128; BP diastolic 44–65; PULSE 59–96; RESP 17–25; TEMP 35.3–37.3; O2SAT 91–100
[2019-11-05] MEDS: ALBUTEROL SULFATE NEB 2.5 MG/0.5 ML INH INHALATION ×4 (02:56→19:39)
[2019-11-05] MEDS: IPRATROPIUM BR 0.02% INH SOLN 0.5 MG/2.5 ML VIAL INHALATION ×4 (02:56→19:39)
[2019-11-05] MEDS: NOREPINEPHRINE 8 MG/D5W 250 ML 8 MG/250 ML BAG 9.4 MG IV CONT (04:00)
[2019-11-05 04:52] LABS: Alveolar/Arterial O2 Gradient 286.3 mmHg; Base Excess ABG -0.2 mEq/l (+/-2.0); Carboxyhemoglobin 0.3 % THb (0-2.0); Fractional Inspired Oxygen 60 %; HCO3 ABG 25.7 mEq/l (22.0-26.0); Methemoglobin ABG 0.3 %THb (0-1.5); Oxygen Content ABG 14.9 %vol (16.0-22.0); Oxygen Saturation ABG 96.5 % (95.0-100.0); Oxyhemoglobin 94.8 % THb (90.0-100.0); PCO2 ABG 47.1 mmHg (35.0-45.0); PO2 ABG 89.7 mmHg (80.0-100.0); Reduced Hemoglobin 4.6 %THb (0-5.0); Total Hemoglobin 11.1 g/dL (12.0-18.0); pH ABG 7.354 (7.350-7.450)
[2019-11-05 04:54] LABS: Arterial Blood Gas PEEP 10 cmH2O; Arterial Blood Gas Tidal Volume 450 ml; Arterial Blood Gas Vent Mode CMV; Arterial Blood Gas Ventilator rate 22 /MIN; Device VENTILATOR; Modified Allen's Test Pass; Site Drawn RIGHT RADIAL
[2019-11-05] MEDS: CENTRAL LINE FLUSH 10 ML IV PUSH ×4 (05:23→22:09)
[2019-11-05] MEDS: HEPARIN SODIUM 5,000 UNITS/ML VIAL 5000 UNITS SUB-Q ×3 (05:24→22:09)
[2019-11-05 05:26] LABS: Glucose Point of Care 414 (65-105)
[2019-11-05 05:26] LABS: Glucose Point of Care 477 (65-105)
[2019-11-05] MEDS: INSULIN ASPART (*BKC) 100 UNITS/ML SUB-Q ×4 (05:53→23:11)
[2019-11-05 06:35] LABS: Hematocrit 28.3 % (42.0-52.0); Hemoglobin 9.7 g/dL (14.0-18.0); Mean Corpuscular HGB Conc 34.3 g/dl (32-36); Mean Corpuscular Hemoglobin 30.9 pg (26-34); Mean Corpuscular Volume 90.1 fl (80-100); Mean Platelet Volume 11.6 fl (7.4-10.4); Platelet Count Result 223 k/mm3 (150-375); Red Blood Count 3.14 M/mm3 (4.6-6.20); Red Cell Distribution Width 12.8 % (11.5-14.5)
--- NOTE | 2019-11-05 07:50 | PM.PNPUL ---
Progress Note: A&P Assessment and Plan (1) Acute respiratory failure: Qualifiers: Respiratory failure complication: hypercapnia Qualified Code(s): J96.02 - Acute respiratory failure with hypercapnia Code(s): J96.00 - Acute respiratory failure, unspecified whether with hypoxia or hypercapnia Status: Acute Assessment and Plan: Improving, consider waking up and CPAP trial for extubation. Multifactorial, post op with atelectesis, possible COPD and SOPHY - Flolan discontinued -Nebulized bronchodilators are need to prevent mucous plugging and help with clearance or respiratory secretions - increase PEEP to 8-10 while intubated - weaning trial, minimize sedation - extubate to BIPAP 20/6 with backup rate of 14-16. - avoid narcotics and sedatives once extubation - early mobilization once extubated - Albuterol 2.5 mg/Atrovent 0.5 mg Nebs Q6h - DVT prophylaxis - systemic steroids discontinued Subjective Date/time seen: 11/05/19 07:50 Interval history: Intubated and sedated with Versed and Fentanyl drip. ABG looks good on current CMV settings, 50%FiO2 and PEEP of 10. CXR shows bilateral atelectesis, no CHF and improving Review of Systems Review of Systems: All systems reviewed & are unremarkable except as noted in HPI and below Exam Narrative: Exam Narrative: intubated and sedated Const: General: comfortable and no acute distress Neck: Neck: supple and no JVD Resp: Auscultation: clear to auscultation bilaterally and diminished lung sounds Cardio: Rate: regular rate Rhythm: regular rhythm Heart sounds: no murmurs Skin: General skin exam: normal color Neuro: Other: intubated and sedated Objective Data Vital Signs Vital Signs: Vital Signs - 24 hr 11/04/19 08:00 11/04/19 09:59 11/04/19 10:00 Temperature 37.3 C Pulse Rate 82 78 77 Respiratory Rate 22 H 22 H 22 H Blood Pressure 114/60 106/58 L Pulse Oximetry 95 95 94 11/04/19 12:00 11/04/19 13:14 11/04/19 13:20 Temperature 37.2 C Pulse Rate 81 84 82 Respiratory Rate 22 H 22 H Blood Pressure 103/56 L 121/59 L Pulse Oximetry 94 11/04/19 14:00 11/04/19 14:02 11/04/19 14:45 Temperature Pulse Rate 79 79 79 Respiratory Rate 22 H 22 H Blood Pressure 121/59 L 132/65 Pulse Oximetry 95 95 11/04/19 16:00 11/04/19 16:15 11/04/19 16:16 Temperature 37.2 C 37.2 C Pulse Rate 81 83 86 Respiratory Rate 22 H 20 22 H Blood Pressure 108/58 L 118/60 Pulse Oximetry 95 95 96 11/04/19 16:34 11/04/19 16:38 11/04/19 16:45 Temperature Pulse Rate 82 83 Respiratory Rate Blood Pressure 127/65 121/65 108/55 L Pulse Oximetry 11/04/19 16:55 11/04/19 16:57 11/04/19 17:00 Temperature Pulse Rate 85 85 87 Respiratory Rate 26 H 22 H Blood Pressure 81/54 L Pulse Oximetry 84 L 11/04/19 17:15 11/04/19 17:21 11/04/19 17:30 Temperature Pulse Rate 65 87 95 Respiratory Rate Blood Pressure 97/52 L 81/54 L Pulse Oximetry 93 11/04/19 17:45 11/04/19 18:00 11/04/19 18:15 Temperature Pulse Rate 86 89 Respiratory Rate 22 H Blood Pressure 92/57 L 92/53 L 80/50 L Pulse Oximetry 93 11/04/19 18:30 11/04/19 18:35 11/04/19 18:45 Temperature Pulse Rate 91 95 93 Respiratory Rate Blood Pressure 85/49 L 85/49 L 92/66 L Pulse Oximetry 11/04/19 19:00 11/04/19 19:15 11/04/19 19:30 Temperature Pulse Rate 94 65 99 Respiratory Rate Blood Pressure 95/55 L 89/58 L 94/49 L Pulse Oximetry 11/04/19 19:45 11/04/19 20:00 11/04/19 20:05 Temperature 37.0 C Pulse Rate 94 98 95 Respiratory Rate 26 H Blood Pressure 96/53 L 94/49 L 119/65 Pulse Oximetry 93 11/04/19 20:15 11/04/19 20:20 11/04/19 20:44 Temperature 37.1 C Pulse Rate 90 89 92 Respiratory Rate 12 27 H Blood Pressure 118/56 L Pulse Oximetry 97 11/04/19 20:45 11/04/19 21:07 11/04/19 21:13 Temperature Pulse Rate 91 88 Respiratory Rate 27 H 28 H Blood Pressure 134/67 Pu
[2019-11-05] MEDS: DOCUSATE SODIUM LIQ 100 MG/10 ML UDC PO ×2 (09:33→20:12)
[2019-11-05] MEDS: INSULIN GLARGINE (*BKC) 100 UNITS/ML 22 UNITS SUB-Q (09:33)
[2019-11-05] MEDS: ASPIRIN 81 MG ENTERIC TABLET PO (09:33)
[2019-11-05] MEDS: PANTOPRAZOLE SODIUM IV 40 MG VIAL IV PUSH (09:33)
[2019-11-05] MEDS: ATORVASTATIN 40 MG TABLET PO (09:33)
[2019-11-05] MEDS: polyethylene glycoL 3350 17 GM POWD.PACK PO (09:33)
--- NOTE | 2019-11-05 09:59 | WPDINTPN ---
Progress Note: A&P Assessment and Plan (1) Acute respiratory failure: Qualifiers: Respiratory failure complication: hypercapnia Qualified Code(s): J96.02 - Acute respiratory failure with hypercapnia Code(s): J96.00 - Acute respiratory failure, unspecified whether with hypoxia or hypercapnia Status: Acute Assessment and Plan: Multifactorial - related to volume overload from acute on chronic kidney disease, possible pneumonia, as well as probable underlying SOPHY and OHS. He was intubated on 10/30/2019. Remains on AC 450x22, FiO2 0.6, PEEP 10. Continue empiric vancomycin, switch Zosyn to cefepime due to GUSTABO; sputum culture with Klebsiella pneumoniae, sensitivities pending. Patient on fentanyl at 50mcg/hr and Versed 3mg/hr infusion for sedation, maintain RASS of 0 to -2, daily sedation vacation. Continue bronchodilators. Started patient on Flolan on 10/31 - weaned off on 11/03. Continue dialysis with aggressive removal. (2) GUSTABO (acute kidney injury): Code(s): N17.9 - Acute kidney failure, unspecified Status: Acute Assessment and Plan: Patient with history of chronic kidney disease stage 3, now with acute kidney injury requiring dialysis. Dialysis catheter was placed in the right femoral vein on 10/28, not functioning well, surgery inserted a new dialysis catheter in the left IJ on 10/31/2019, also not functioning well and RIJ CVC was changed over guidewire for new HD catheter 11/04. HD per Nephrology. (3) Acute cholecystitis: Code(s): K81.0 - Acute cholecystitis Status: Acute Assessment and Plan: Patient presented on 10/23/2019 with acute cholecystitis, status post laparoscopic cholecystectomy on 10/25/2019. (4) Hyponatremia: Code(s): E87.1 - Hypo-osmolality and hyponatremia Status: Acute Assessment and Plan: Likely related to hypervolemic hyponatremia, improving. (5) Diabetes mellitus: Qualifiers: Diabetes mellitus complication status: with other specified complication Diabetes mellitus prison insulin use: with truck terminal manager use Diabetes mellitus type: type 2 Qualified Code(s): E11.69 - Type 2 diabetes mellitus with other specified complication; Z79.4 - extermination supervisor (current) use of insulin Code(s): E11.9 - Type 2 diabetes mellitus without complications Status: Acute Assessment and Plan: Under better control this AM with Lantus and SSI. (6) DVT prophylaxis: Code(s): Z29.9 - Encounter for prophylactic measures, unspecified Status: Acute Assessment and Plan: Continue SC heparin. (7) Shock: Code(s): R57.9 - Shock, unspecified Status: Acute Assessment and Plan: Suspect related to sepsis and sedation meds. Wean off Levophed as tolerated. Additional Plan Code status: DNR Critical care time spent: 40 minutes Due to a high probability of clinically significant, life threatening deterioration, the patient required my highest level of preparedness to intervene emergently and I personally spent this critical care time directly and personally managing the patient. This critical care time included obtaining a history; examining the patient; pulse oximetry; ordering and review of studies; arranging urgent treatment with development of a management plan; evaluation of patient's response to treatment; frequent reassessment; and discussions with other providers. It was exclusive of separately billable procedures and treating other patients and teaching time. Please see Assessment and Plan section and the rest of the note for further information on patient assessment and treatment Subjective Date/time seen: 11/05/19 09:59 Pt remains on mechanical ventilation at AC 450x22, FiO2 0.6, PEEP 10. Levophed reduced to 5mcg/min. Flolan stopped yesterday. Review of Systems Review of Systems: ROS unobtainable: Yes unobtainable due to endotracheal tube Exam Const: General: comfortable and no acute distress H
[2019-11-05 10:47] LABS: Anion Gap 18.5 mmol/L (7-16); Blood Urea Nitrogen 72 mg/dL (9-20); Calcium 8.1 mg/dL (8.4-10.2); Carbon Dioxide 26 mmol/L (22-30); Chloride 86 mmol/L (98-107); Estimated CRCL calculation 9 ml/min; Estimated Glomerular Filt Rate 7; Glucose 333 mg/dL (75-110); Magnesium 2.4 mg/dL (1.6-2.3); Phosphorus 6.9 mg/dL (2.5-4.5); Potassium 4.5 mmol/L (3.4-5.0); Sodium 126 mmol/L (137-145)
[2019-11-05 13:20] LABS: Glucose Point of Care 338 (65-105)
--- NOTE | 2019-11-05 13:45 | PM.OP ---
Procedure Note - Brief Procedure Note - Brief Date of procedure: 11/05/19 Pre-op diagnosis: Acute on chronic renal failure, inadequate venous Procedure performed: Temporary HD catheter placement over a guidewire Description of procedure: A time-out was completed verifying correct patient, procedure, site, positioning, and special equipment if applicable. The patient was placed in a Trendelenberg position appropriate for central line placement based on the vein to be cannulated. The patient?s right neck was prepped and draped in sterile fashion. His previous RIJ central line sutures were removed and caps were removed. A guidewire was placed through the brown port and the catheter was removed. Serial dilation was used and a 12F triple lumen temporary HD catheter was placed over the guidewire. The catheter was threaded smoothly over the guide wire and appropriate blood return was obtained. Each lumen of the catheter was evacuated of air and flushed with sterile saline. The catheter was then sutured in place to the skin and a sterile dressing applied. A CXR was reviewed by me. Estimated Blood Loss: 5cc The patient tolerated the procedure well and there were no complications. Surgeon: Anil Lopez DO
--- NOTE | 2019-11-05 15:59 | PM.IMPN ---
Progress Note: A&P Assessment and Plan (1) Acute cholecystitis: Code(s): K81.0 - Acute cholecystitis Status: Acute Assessment and Plan: POD#6 lap cholecystectomy.. Op note described gangrenous changes and friable tissue; pt is on IV zosyn (day 5). Zosyn is completed. (2) Acute respiratory failure with hypoxia: Code(s): J96.01 - Acute respiratory failure with hypoxia Status: Acute Assessment and Plan: Pt is on BIPAP for respiratory distress and labored breathing needing continuous BIPAP presently, pt will be transferred to IMU I will add steroids IV for patient Echocardiogram reviewed and shows good systolic function EF 65-75%, grade I diastolic dysfunction. CTA 10/22 shows no PE or other acute findings for that matter. Pt will need assessment for SOPHY as outpatient,Obese large neck and COPD Albuterol treatments started ABG today reveiwed improved pt still acidoitic 11/05/19 15:59 85-year-old male status post cholecystectomy on 10/25/2019 chronic kidney disease stage 3 patient developed hypoxia and was emergently intubated, most likely secondary to volume overload as patient was hydrated for acute kidney injury not requiring dialysis, also possibly due to hypoventilation due to morbid obesity, remains intubated, patient seen by human resources benefits assistant had a emergent dialysis yesterday however there is no significant improvement in oxygenation as patient is requiring 100%, patient had dialysis and 3 L was removed on 11/01 and 11/02 there is no significant change and patient's respiratory status, patient is seen by human resources benefits assistant, will have another dialysis today, seen by pulmonology recommending to dc Flolan it is not helping improved patient respiratory status, patient seen by certified histologic technician, will continue to monitor (3) GUSTABO (acute kidney injury): Code(s): N17.9 - Acute kidney failure, unspecified Status: Acute Assessment and Plan: No clear etiology , probably due to overdiuresis.Contrast dye. DM, post op PH 7.228, creat10 from 8.5 from 6.9 from 4.9 sodium is 118. Communicated with nephrology ?dialysis - first round Creat is worsening pt will benefit from dialysis pt had sumeet catheter and first round of dialysis today could not tolerate dialysis yesterday due to anxiety and SOB (4) Type 2 diabetes mellitus with other skin complications: Code(s): E11.628 - Type 2 diabetes mellitus with other skin complications Status: Acute Assessment and Plan: Continue ISS and add low dose long acting insulin q am. (5) Essential (primary) hypertension: Code(s): I10 - Essential (primary) hypertension Status: Acute Assessment and Plan: Hold his ARB and lasix given the GUSTABO (6) Hyperlipidemia LDL goal <70: Code(s): E78.5 - Hyperlipidemia, unspecified Status: Acute Assessment and Plan: Maintained on home statin therapy. (7) Hyponatremia: Code(s): E87.1 - Hypo-osmolality and hyponatremia Status: Acute Assessment and Plan: Was previously diuresed with home chlorthalidone and additional IV lasix due to lower extremity edema. Hold diuretics hyponatremia (8) Suspected sleep apnea: Code(s): R29.818 - Other symptoms and signs involving the nervous system Status: Acute Assessment and Plan: . Pt is on BIPAP for possible COPD excerbation, Consulted DR Baldwin, pulmunology. For recommendations. Pt will need OPD sleep study on discharge Pt transfered to [facility] Subjective Date/time seen: 11/05/19 15:59 85-year-old male status post cholecystectomy on 10/25/2019 chronic kidney disease stage 3 patient developed hypoxia and was emergently intubated, most likely secondary to volume overload as patient was hydrated for acute kidney
--- NOTE | 2019-11-05 16:18 | P.PNNP_ITS ---
Progress Note: A&P Assessment and Plan (1) GUSTABO (acute kidney injury): Code(s): N17.9 - Acute kidney failure, unspecified Status: Acute Assessment and Plan: * multifactorial ATN: - prerenal factors (low urine Na) - ARB use prior to admission - contrast exposure x 2 (on 10/21 and 10/[address] scans) - acute infection (cholecystitis) - relative hypotension * minimal urine output. (2) Chronic kidney disease, stage III (moderate): Code(s): N18.3 - Chronic kidney disease, stage 3 (moderate) Status: Acute Assessment and Plan: * baseline creatinine ~ 1.2 - 1.5mg/dl * presumably due to DM, HTN, SOPHY, and age-related disease (3) Hyponatremia: Code(s): E87.1 - Hypo-osmolality and hyponatremia Status: Acute Assessment and Plan: * suspect due to GUSTABO/ARF * Sodium is still low but it is stable. * He has lots of obligate IV fluids which are hypotonic (4) Acute cholecystitis: Code(s): K81.0 - Acute cholecystitis Status: Acute Assessment and Plan: * s/p laparoscopic cholecystectomy * afebrile. White blood cell count is fine. * Surgery Following (5) Acute respiratory failure with hypoxia: Code(s): J96.01 - Acute respiratory failure with hypoxia Status: Acute Assessment and Plan: * probably due to fluid retention and SOPHY/pulmonary hypertension * oxygenation improving with fluid removal * Chest x-ray Shows some fluid. * CT chest negative for pulmonary embolism. * Negative for COVID * continue removing fluid (6) Diabetes: Code(s): E11.9 - Type 2 diabetes mellitus without complications Status: Acute Assessment and Plan: * follow accuchecks * on Lantus and SSI Will continue to follow. (7) Acidosis: Code(s): E87.2 - Acidosis Status: Acute Assessment and Plan: CO2 is Okay. Additional Plan Subjective Date/time seen: 11/05/19 16:19 Interval history: the patient is on the ventilator. He is getting dialysis now. They had to guidewire a new line over the triple- lumen catheter. This is in the right IJ. This line would not pull and so they are using the old catheter in the left IJ for the arterial line in using the new catheter in the right IJ for the venous line. And he is getting a blood flow of about 300. blood pressure is doing well. He was seen at 16:10pm Review of Systems Review of Systems: ROS unobtainable: Yes unobtainable due to endotracheal tube Exam Narrative: Exam Narrative: General: WD/WN male in NAD; BiPAP in place Heart: normal S1 and S2; no rub or gallop Lungs: coarse breath sounds throughout Abdomen: soft, nontender. Bowel sounds positive. Extremities: Trace to 1+ edema Skin: No rash Or subcu nodules Objective Data Vital Signs Vital Signs: Vital Signs - 24 hr 11/04/19 16:34 11/04/19 16:38 11/04/19 16:45 Temperature Pulse Rate 82 83 Respiratory Rate Blood Pressure 127/65 121/65 108/55 L Pulse Oximetry 11/04/19 16:55 11/04/19 16:57 11/04/19 17:00 Temperature Pulse Rate 85 85 87 Respiratory Rate 26 H 22 H Blood Pressure 81/54 L Pulse Oximetry 84 L 11/04/19 17:15
--- NOTE | 2019-11-05 16:18 | PM.PNNEP ---
Progress Note: A&P Assessment and Plan (1) GUSTABO (acute kidney injury): Code(s): N17.9 - Acute kidney failure, unspecified Status: Acute Assessment and Plan: multifactorial ATN: - prerenal factors (low urine Na) - ARB use prior to admission - contrast exposure x 2 (on 10/21 and 10/[address] scans) - acute infection (cholecystitis) - relative hypotension minimal urine output. (2) Chronic kidney disease, stage III (moderate): Code(s): N18.3 - Chronic kidney disease, stage 3 (moderate) Status: Acute Assessment and Plan: baseline creatinine ~ 1.2 - 1.5mg/dl presumably due to DM, HTN, SOPHY, and age-related disease (3) Hyponatremia: Code(s): E87.1 - Hypo-osmolality and hyponatremia Status: Acute Assessment and Plan: suspect due to GUSTABO/ARF Sodium is still low but it is stable. He has lots of obligate IV fluids which are hypotonic (4) Acute cholecystitis: Code(s): K81.0 - Acute cholecystitis Status: Acute Assessment and Plan: s/p laparoscopic cholecystectomy afebrile. White blood cell count is fine. Surgery Following (5) Acute respiratory failure with hypoxia: Code(s): J96.01 - Acute respiratory failure with hypoxia Status: Acute Assessment and Plan: probably due to fluid retention and SOPHY/pulmonary hypertension oxygenation improving with fluid removal Chest x-ray Shows some fluid. CT chest negative for pulmonary embolism. Negative for COVID continue removing fluid (6) Diabetes: Code(s): E11.9 - Type 2 diabetes mellitus without complications Status: Acute Assessment and Plan: follow accuchecks on Lantus and SSI Will continue to follow. (7) Acidosis: Code(s): E87.2 - Acidosis Status: Acute Assessment and Plan: CO2 is Okay. Additional Plan Subjective Date/time seen: 11/05/19 16:19 Interval history: the patient is on the ventilator. He is getting dialysis now. They had to guidewire a new line over the triple-lumen catheter. This is in the right IJ. This line would not pull and so they are using the old catheter in the left IJ for the arterial line in using the new catheter in the right IJ for the venous line. And he is getting a blood flow of about 300. blood pressure is doing well. He was seen at 16:10pm Review of Systems Review of Systems: ROS unobtainable: Yes unobtainable due to endotracheal tube Exam Narrative: Exam Narrative: General: WD/WN male in NAD; BiPAP in place Heart: normal S1 and S2; no rub or gallop Lungs: coarse breath sounds throughout Abdomen: soft, nontender. Bowel sounds positive. Extremities: Trace to 1+ edema Skin: No rash Or subcu nodules Objective Data Vital Signs Vital Signs: Vital Signs - 24 hr 11/04/19 16:34 11/04/19 16:38 11/04/19 16:45 Temperature Pulse Rate 82 83 Respiratory Rate Blood Pressure 127/65 121/65 108/55 L Pulse Oximetry 11/04/19 16:55 11/04/19 16:57 11/04/19 17:00 Temperature Pulse Rate 85 85 87 Respiratory Rate 26 H 22 H Blood Pressure 81/54 L Pulse Oximetry 84 L 11/04/19 17:15 11/04/19 17:21 11/04/19 17:30 Temperature Pulse Rate 65 87 95 Respiratory Rate Blood Pressure 97/52 L 81/54 L Pulse Oximetry 93 11/04/19 17:45 11/04/19 18:00 11/04/19 18:15 Temperature Pulse Rate 86 89 Respiratory Rate 22 H Blood Pressure 92/57 L 92/53 L 80/50 L Pulse Oximetry 93 11/04/19 18:30 11/04/19 18:35 11/04/19 18:45 Temperature Pulse Rate 91 95 93 Respiratory Rate Blood Pressure 85/49 L 85/49 L 92/66 L Pulse Oximetry 11/04/19 19:00 11/04/19 19:15 11/04/19 19:30 Temperature Pulse Rate 94 65 99 Respiratory Rate Blood Pressure 95/55 L 89/58 L 94/49 L Pulse Oximetry 11/04/19 19:45 11/04/19 20:00 11/04/19 20:05 Temperature 37
[2019-11-05 18:17] LABS: Glucose Point of Care 219 (65-105)
[2019-11-05 21:23] LABS: Vancomycin Random 19.3 ug/mL (10-20)
[2019-11-05 23:10] LABS: Glucose Point of Care 352 (65-105)
[2019-11-06] VITALS (47 sets, daily range): BP systolic 83–149; BP diastolic 42–68; PULSE 82–102; RESP 22–28; TEMP 37–39.2; O2SAT 88–97
[2019-11-06] MEDS: IPRATROPIUM BR 0.02% INH SOLN 0.5 MG/2.5 ML VIAL INHALATION ×4 (01:26→20:30)
[2019-11-06] MEDS: ALBUTEROL SULFATE NEB 2.5 MG/0.5 ML INH INHALATION ×4 (01:26→20:30)
[2019-11-06] MEDS: NOREPINEPHRINE 8 MG/D5W 250 ML 8 MG/250 ML BAG 9.4 MG IV CONT (04:06)
[2019-11-06 06:08] LABS: Glucose Point of Care 320 (65-105)
[2019-11-06] MEDS: CENTRAL LINE FLUSH 10 ML IV PUSH ×2 (06:09→23:00)
[2019-11-06] MEDS: HEPARIN SODIUM 5,000 UNITS/ML VIAL 5000 UNITS SUB-Q ×2 (06:09→14:36)
[2019-11-06] MEDS: INSULIN ASPART (*BKC) 100 UNITS/ML SUB-Q ×3 (06:10→18:17)
[2019-11-06 06:42] LABS: Basophils Percent Auto 0.1 % (0.2-1.2); Eosinophils Absolute Auto 0.1 K/mm3 (0-0.3); Eosinophils Percent Auto 0.3 % (0-4.4); Hematocrit 28.1 % (42.0-52.0); Hemoglobin 9.7 g/dL (14.0-18.0); Immature Granulocyte Absolute 0.26 K/mm3 (0.00-0.031); Lymphocytes Absolute Auto 0.32 K/mm3 (0.9-3.2); Lymphocytes Percent Auto 1.2 % (18.3-44.2); Mean Corpuscular HGB Conc 34.5 g/dl (32-36); Mean Corpuscular Hemoglobin 31.1 pg (26-34); Mean Corpuscular Volume 90.1 fl (80-100); Mean Platelet Volume 12.1 fl (7.4-10.4); Monocytes Absolute Auto 1.6 K/mm3 (0.1-0.6); Monocytes Percent Auto 6.1 % (2.6-8.5); Neutrophils Absolute Auto 23.8 K/mm3 (1.3-6.7); Neutrophils Percent Auto 91.3 % (45.5-73.1); Platelet Count Result 253 k/mm3 (150-375); Red Blood Count 3.12 M/mm3 (4.6-6.20); Red Cell Distribution Width 12.9 % (11.5-14.5); White Blood Count 26.1 K/mm3 (4.5-10.0)
[2019-11-06 06:58] LABS: Anion Gap 14.6 mmol/L (7-16); Blood Urea Nitrogen 67 mg/dL (9-20); Calcium 8.4 mg/dL (8.4-10.2); Carbon Dioxide 30 mmol/L (22-30); Chloride 88 mmol/L (98-107); Estimated CRCL calculation 11 ml/min; Estimated Glomerular Filt Rate 8; Glucose 303 mg/dL (75-110); Potassium 4.6 mmol/L (3.4-5.0); Sodium 128 mmol/L (137-145)
[2019-11-06] MEDS: ASPIRIN 81 MG ENTERIC TABLET PO (07:28)
[2019-11-06] MEDS: DOCUSATE SODIUM LIQ 100 MG/10 ML UDC PO (07:28)
[2019-11-06] MEDS: PANTOPRAZOLE SODIUM IV 40 MG VIAL IV PUSH (07:28)
[2019-11-06] MEDS: ATORVASTATIN 40 MG TABLET PO (07:28)
[2019-11-06] MEDS: polyethylene glycoL 3350 17 GM POWD.PACK PO (07:29)
--- NOTE | 2019-11-06 07:37 | WPDINTPN ---
Progress Note: A&P Assessment and Plan (1) Acute respiratory failure: Qualifiers: Respiratory failure complication: hypercapnia Qualified Code(s): J96.02 - Acute respiratory failure with hypercapnia Code(s): J96.00 - Acute respiratory failure, unspecified whether with hypoxia or hypercapnia Status: Acute Assessment and Plan: Multifactorial - related to volume overload from acute on chronic kidney disease, possible pneumonia, as well as probable underlying SOPHY and OHS. He was intubated on 10/30/2019. Remains on AC 450x22, FiO2 0.6, PEEP 10. Continue empiric vancomycin and Flagyl, switched Zosyn to cefepime due to GUSTABO; sputum culture with Klebsiella pneumoniae and Citrobacter freundii, sensitive to cefepime. Patient on fentanyl at 50mcg/hr and Versed 3mg/hr infusion for sedation, maintain RASS of 0 to -2, daily sedation vacation. Continue bronchodilators. Started patient on Flolan on 10/31 - weaned off on 11/03. Continue dialysis with aggressive removal. Consider discussion regarding tracheostomy with family in the next couple of days. (2) GUSTABO (acute kidney injury): Code(s): N17.9 - Acute kidney failure, unspecified Status: Acute Assessment and Plan: Patient with history of chronic kidney disease stage 3, now with acute kidney injury requiring dialysis. Dialysis catheter was placed in the right femoral vein on 10/28, not functioning well, surgery inserted a new dialysis catheter in the left IJ on 10/31/2019, also not functioning well and RIJ CVC was changed over guidewire for new HD catheter 11/04. However, LIJ still appears functional. Remove R femoral catheter today. HD per Nephrology. (3) Acute cholecystitis: Code(s): K81.0 - Acute cholecystitis Status: Acute Assessment and Plan: Patient presented on 10/23/2019 with acute cholecystitis, status post laparoscopic cholecystectomy on 10/25/2019. (4) Hyponatremia: Code(s): E87.1 - Hypo-osmolality and hyponatremia Status: Acute Assessment and Plan: Likely related to hypervolemic hyponatremia, improving. (5) Diabetes mellitus: Qualifiers: Diabetes mellitus type: type 2 Diabetes mellitus long term acute care registered nurse insulin use: with long term acute care registered nurse use Diabetes mellitus complication status: with other specified complication Qualified Code(s): E11.69 - Type 2 diabetes mellitus with other specified complication; Z79.4 - senior care (current) use of insulin Code(s): E11.9 - Type 2 diabetes mellitus without complications Status: Acute Assessment and Plan: Uncontrolled this AM with Lantus and SSI. Increase Lantus dose. (6) DVT prophylaxis: Code(s): Z29.9 - Encounter for prophylactic measures, unspecified Status: Acute Assessment and Plan: Continue SC heparin. (7) Shock: Code(s): R57.9 - Shock, unspecified Status: Acute Assessment and Plan: Suspect related to sepsis and sedation meds. Wean off Levophed as tolerated. (8) Fever: Code(s): R50.9 - Fever, unspecified Status: Acute Assessment and Plan: With worsening leukocytosis today. New blood cultures, UA, and sputum culture ordered. UA shows pyuria - will remove Mello today. Remove R femoral HD catheter. Continue vancomycin, cefepime, and Flagyl. Venous dopplers from 10/22 were negative, consider repeating. Additional Plan Code status: DNR Critical care time spent: 45 minutes Due to a high probability of clinically significant, life threatening deterioration, the patient required my highest level of preparedness to intervene emergently and I personally spent this critical care time directly and personally managing the patient. This critical care time included obtaining a history; examining the patient; pulse oximetry; ordering and review of studies; arranging urgent treatment with development of a management plan; evaluation of patient's response to treatment; frequent reassessment; and discussions with
[2019-11-06] MEDS: ACETAMINOPHEN 500 MG TABLET 1000 MG PO (08:01)
[2019-11-06] MEDS: INSULIN GLARGINE (*BKC) 100 UNITS/ML 30 UNITS SUB-Q (08:46)
[2019-11-06 09:28] LABS: Add Urine Microscopic? YES; Amorphous Sediment Urine Few; Appearance Urine Cloudy (Clear); Bacteria Urine Trace /hpf; Bilirubin Urine Negative (Negative); Blood Urine 3+ (Negative); Color Urine Amber (Yellow); Glucose Urine UA 1+ mg/dL (Negative); Ketones Urine Negative (Negative); Leukocyte Esterase Ur 3+ LEU/UL (Negative); Mucus Urine Rare /lpf; Nitrate Urine Negative (Negative); Protein Urine 3+ mg/dL (Negative); RBC Urine >75 /hpf (0-2); Specific Grav Ur 1.026 (1.001-1.035); Squamous Epithelial Cell Urine Occasional /hpf (Few); Urobilinogen Urine Negative mg/dL (<2.0); WBC Urine >75 /hpf
[2019-11-06 12:12] LABS: Glucose Point of Care 339 (65-105)
--- NOTE | 2019-11-06 12:43 | PM.PNNEP ---
Progress Note: A&P Assessment and Plan (1) GUSTABO (acute kidney injury): Code(s): N17.9 - Acute kidney failure, unspecified Status: Acute Assessment and Plan: multifactorial ATN: - prerenal factors (low urine Na) - ARB use prior to admission - contrast exposure x 2 (on 10/21 and 10/[address] scans) - acute infection (cholecystitis) - relative hypotension minimal urine output. Mello is out. (2) Chronic kidney disease, stage III (moderate): Code(s): N18.3 - Chronic kidney disease, stage 3 (moderate) Status: Acute Assessment and Plan: baseline creatinine ~ 1.2 - 1.5mg/dl presumably due to DM, HTN, SOPHY, and age-related disease (3) Hyponatremia: Code(s): E87.1 - Hypo-osmolality and hyponatremia Status: Acute Assessment and Plan: suspect due to GUSTABO/ARF Sodium is still low but it is stable. He has lots of obligate IV fluids which are hypotonic (4) Acute cholecystitis: Code(s): K81.0 - Acute cholecystitis Status: Acute Assessment and Plan: s/p laparoscopic cholecystectomy Surgery Following (5) Acute respiratory failure with hypoxia: Code(s): J96.01 - Acute respiratory failure with hypoxia Status: Acute Assessment and Plan: probably due to fluid retention and SOPHY/pulmonary hypertension oxygenation improving with fluid removal Chest x-ray Shows some fluid. CT chest negative for pulmonary embolism. Negative for COVID continue removing fluid Will get another dialysis tomorrow. (6) Diabetes: Code(s): E11.9 - Type 2 diabetes mellitus without complications Status: Acute Assessment and Plan: follow accuchecks on Lantus and SSI (7) Acidosis: Code(s): E87.2 - Acidosis Status: Acute Assessment and Plan: CO2 is Okay. (8) Fever: Code(s): R50.9 - Fever, unspecified Status: Acute Assessment and Plan: cultures done. He is on antibiotics. Femoral line and Mello catheter are out. Additional Plan Subjective Date/time seen: 11/06/19 12:43 Interval history: the patient is on the ventilator. he finished his dialysis treatment yesterday. He did pretty well. blood pressure is doing well. He ran a fever this morning. Groin line out and Mello catheter is out. Review of Systems Review of Systems: ROS unobtainable: Yes unobtainable due to endotracheal tube Exam Narrative: Exam Narrative: General: WD/WN male in NAD; BiPAP in place Heart: normal S1 and S2; no rub or gallop Lungs: coarse breath sounds throughout Abdomen: soft, nontender. Bowel sounds positive. Extremities: Trace to 1+ edema Skin: No rash Objective Data Vital Signs Vital Signs: Vital Signs - 24 hr 11/05/19 13:07 11/05/19 14:00 11/05/19 14:01 Temperature Pulse Rate 91 73 83 Respiratory Rate 17 24 H 22 H Blood Pressure 99/52 L Pulse Oximetry 94 93 11/05/19 14:09 11/05/19 15:40 11/05/19 15:58 Temperature 36.6 C Pulse Rate 82 92 59 L Respiratory Rate 22 H 23 H Blood Pressure 126/60 121/59 L Pulse Oximetry 11/05/19 16:00 11/05/19 16:15 11/05/19 16:30 Temperature 37.3 C Pulse Rate 87 88 87 Respiratory Rate 22 H Blood Pressure 121/59 L 93/55 L 99/47 L Pulse Oximetry 95 11/05/19 16:45 11/05/19 16:55 11/05/19 17:02 Temperature Pulse Rate 86 84 84 Respiratory Rate Blood Pressure 113/50 L 96/44 L Pulse Oximetry 91 11/05/19 17:15 11/05/19 17:27 11/05/19 17:30 Temperature Pulse Rate 85 88 89 Respiratory Rate 22 H Blood Pressure 80/49 L 96/47 L Pulse Oximetry 11/05/19 17:45 11/05/19 18:00 11/05/19 18:15 Temperature Pulse Rate 83 96 85 Respiratory Rate 22 H Blood Pressure 95/48 L 96/47 L 97/51 L Pulse Oximetry 93 11/05/19 18:31 11/05/19 18:46 11/05/19 18:58 Temperature Pulse Rate 90 84 85 Respirator
--- NOTE | 2019-11-06 16:46 | PM.IMPN ---
Progress Note: A&P Assessment and Plan (1) Acute cholecystitis: Code(s): K81.0 - Acute cholecystitis Status: Acute Assessment and Plan: POD#6 lap cholecystectomy.. Op note described gangrenous changes and friable tissue; pt is on IV zosyn (day 5). Zosyn is completed. (2) Acute respiratory failure with hypoxia: Code(s): J96.01 - Acute respiratory failure with hypoxia Status: Acute Assessment and Plan: Pt is on BIPAP for respiratory distress and labored breathing needing continuous BIPAP presently, pt will be transferred to IMU I will add steroids IV for patient Echocardiogram reviewed and shows good systolic function EF 65-75%, grade I diastolic dysfunction. CTA 10/22 shows no PE or other acute findings for that matter. Pt will need assessment for SOPHY as outpatient,Obese large neck and COPD Albuterol treatments started ABG today reveiwed improved pt still acidoitic 11/06/19 16:46 85-year-old male status post cholecystectomy on 10/25/2019 chronic kidney disease stage 3 patient developed hypoxia and was emergently intubated, most likely secondary to volume overload as patient was hydrated for acute kidney injury not requiring dialysis, also possibly due to hypoventilation due to morbid obesity, remains intubated, patient seen by spar machine operator had a emergent dialysis yesterday however there is no significant improvement in oxygenation as patient is requiring 100%, patient had dialysis and 3 L was removed on 11/01 and 11/02 there is no significant change and patient's respiratory status, patient is seen by spar machine operator, patien had another dialysis on 11/04, today patient has a fever worsening leukocytosis, blood culture and sputum culture is ordered, UA shows pyuria, Mello is removed, and dialysis catheter is removed patient is being treated vancomycin cefepime and Flagyl, patient may need trach and couple of days if not been weaned off ventilator, seen by pulmonology recommending to dc Flolan it is not helping improved patient respiratory status, patient seen by house worker, will continue to monitor (3) GUSTABO (acute kidney injury): Code(s): N17.9 - Acute kidney failure, unspecified Status: Acute Assessment and Plan: No clear etiology , probably due to overdiuresis.Contrast dye. DM, post op PH 7.228, creat10 from 8.5 from 6.9 from 4.9 sodium is 118. Communicated with nephrology ?dialysis - first round Creat is worsening pt will benefit from dialysis pt had sumeet catheter and first round of dialysis today could not tolerate dialysis yesterday due to anxiety and SOB (4) Type 2 diabetes mellitus with other skin complications: Code(s): E11.628 - Type 2 diabetes mellitus with other skin complications Status: Acute Assessment and Plan: Continue ISS and add low dose long acting insulin q am. (5) Essential (primary) hypertension: Code(s): I10 - Essential (primary) hypertension Status: Acute Assessment and Plan: Hold his ARB and lasix given the GUSTABO (6) Hyperlipidemia LDL goal <70: Code(s): E78.5 - Hyperlipidemia, unspecified Status: Acute Assessment and Plan: Maintained on home statin therapy. (7) Hyponatremia: Code(s): E87.1 - Hypo-osmolality and hyponatremia Status: Acute Assessment and Plan: Was previously diuresed with home chlorthalidone and additional IV lasix due to lower extremity edema. Hold diuretics hyponatremia (8) Suspected sleep apnea: Code(s): R29.818 - Other symptoms and signs involving the nervous system Status: Acute Assessment and Plan: . Pt is on BIPAP for possible COPD excerbation, Consulted DR Baldwin, pulmunology. For recommendations. Pt will need OPD sleep study on discharge Pt transfered to IMU
[2019-11-06 17:43] LABS: Glucose Point of Care 356 (65-105)
[2019-11-06] MEDS: ALBUMIN HUMAN 25% 12.5 GM/50ML 50 ML IVPB (21:08)
[2019-11-06 23:45] LABS: Alveolar/Arterial O2 Gradient 453.4 mmHg; Base Excess ABG 1.9 mEq/l (+/-2.0); Carboxyhemoglobin 0.3 % THb (0-2.0); Fractional Inspired Oxygen 80 %; HCO3 ABG 28.4 mEq/l (22.0-26.0); Methemoglobin ABG 0.2 %THb (0-1.5); Oxygen Content ABG 14.5 %vol (16.0-22.0); Oxygen Saturation ABG 90.1 % (95.0-100.0); Oxyhemoglobin 88.6 % THb (90.0-100.0); PCO2 ABG 52.8 mmHg (35.0-45.0); PO2 ABG 61.6 mmHg (80.0-100.0); PO2 FiO2 Ratio Arterial Blood 0.77 %; Reduced Hemoglobin 10.9 %THb (0-5.0); Total Hemoglobin 11.6 g/dL (12.0-18.0); pH ABG 7.348 (7.350-7.450)
[2019-11-06 23:46] LABS: Arterial Blood Gas PEEP 10 cmH2O; Arterial Blood Gas Tidal Volume 450 ml; Arterial Blood Gas Vent Mode CMV; Arterial Blood Gas Ventilator rate 22 /MIN; Device VENTILATOR; Modified Allen's Test Pass; Site Drawn RIGHT RADIAL
[2019-11-07] VITALS (19 sets, daily range): BP systolic 76–120; BP diastolic 45–65; PULSE 95–104; RESP 23–30; TEMP 35.1–37.8; O2SAT 90–94
[2019-11-07] MEDS: IPRATROPIUM BR 0.02% INH SOLN 0.5 MG/2.5 ML VIAL INHALATION ×2 (01:59→08:55)
[2019-11-07] MEDS: ALBUTEROL SULFATE NEB 2.5 MG/0.5 ML INH INHALATION ×2 (01:59→08:56)
[2019-11-07] MEDS: DOCUSATE SODIUM LIQ 100 MG/10 ML UDC PO ×2 (02:12→08:12)
[2019-11-07 05:53] LABS: PCO2 ABG 45.5 mmHg (35.0-45.0); pH ABG 7.353 (7.350-7.450)
[2019-11-07 05:54] LABS: Alveolar/Arterial O2 Gradient 516.3 mmHg; HCO3 ABG 24.7 mEq/l (22.0-26.0); Oxygen Content ABG 15.2 %vol (16.0-22.0); Oxygen Saturation ABG 95.1 % (95.0-100.0); PO2 ABG 78.8 mmHg (80.0-100.0); Total Hemoglobin 11.5 g/dL (12.0-18.0)
[2019-11-07 05:55] LABS: Device VENTILATOR; Fractional Inspired Oxygen 90 %; Modified Allen's Test Pass; Oxyhemoglobin 93.5 % THb (90.0-100.0); PO2 FiO2 Ratio Arterial Blood 0.88 %; Site Drawn RIGHT RADIAL
[2019-11-07 06:10] LABS: Glucose Point of Care 361 (65-105)
[2019-11-07] MEDS: INSULIN ASPART (*BKC) 100 UNITS/ML SUB-Q (06:14)
[2019-11-07] MEDS: CENTRAL LINE FLUSH 10 ML IV PUSH (06:32)
[2019-11-07] MEDS: HEPARIN SODIUM 5,000 UNITS/ML VIAL 5000 UNITS SUB-Q (06:33)
[2019-11-07 06:37] LABS: Basophils Percent Auto 0.1 % (0.2-1.2); Hematocrit 30.9 % (42.0-52.0); Hemoglobin 10.5 g/dL (14.0-18.0); Immature Granulocyte Absolute 0.29 K/mm3 (0.00-0.031); Lymphocytes Absolute Auto 0.32 K/mm3 (0.9-3.2); Lymphocytes Percent Auto 1.1 % (18.3-44.2); Mean Corpuscular Hemoglobin 31.1 pg (26-34); Mean Corpuscular Volume 91.4 fl (80-100); Mean Platelet Volume 12.1 fl (7.4-10.4); Monocytes Absolute Auto 1.7 K/mm3 (0.1-0.6); Monocytes Percent Auto 5.8 % (2.6-8.5); Neutrophils Absolute Auto 26.7 K/mm3 (1.3-6.7); Platelet Count Result 260 k/mm3 (150-375); Red Blood Count 3.38 M/mm3 (4.6-6.20); Red Cell Distribution Width 13.2 % (11.5-14.5)
[2019-11-07 07:10] LABS: Albumin Level 3.1 g/dL (3.5-5.1); Anion Gap 20.7 mmol/L (7-16); Blood Urea Nitrogen 99 mg/dL (9-20); Calcium 8.3 mg/dL (8.4-10.2); Carbon Dioxide 25 mmol/L (22-30); Chloride 87 mmol/L (98-107); Estimated CRCL calculation 8 ml/min; Estimated Glomerular Filt Rate 6; Glucose 365 mg/dL (75-110); Magnesium 2.5 mg/dL (1.6-2.3); Phosphorus 8.3 mg/dL (2.5-4.5); Potassium 5.7 mmol/L (3.4-5.0); Sodium 127 mmol/L (137-145)
[2019-11-07 07:48] LABS: Arterial Blood Gas PEEP 10 cmH2O; Arterial Blood Gas Tidal Volume 450 ml; Arterial Blood Gas Vent Mode CMV; Arterial Blood Gas Ventilator rate 22 /MIN
[2019-11-07] MEDS: ACETAMINOPHEN 500 MG TABLET 1000 MG PO (08:11)
[2019-11-07] MEDS: polyethylene glycoL 3350 17 GM POWD.PACK PO (08:12)
[2019-11-07] MEDS: PANTOPRAZOLE SODIUM IV 40 MG VIAL IV PUSH (08:12)
[2019-11-07] MEDS: ATORVASTATIN 40 MG TABLET PO (08:12)
[2019-11-07] MEDS: ASPIRIN 81 MG ENTERIC TABLET PO (08:12)
[2019-11-07] MEDS: NOREPINEPHRINE 8 MG/D5W 250 ML 8 MG/250 ML BAG 9.4 MG IV CONT (08:24)
[2019-11-07] MEDS: INSULIN GLARGINE (*BKC) 100 UNITS/ML 30 UNITS SUB-Q (08:33)
[2019-11-07] MEDS: HEPARIN SODIUM 1,000 UNITS/ML VIAL 9000 UNITS (11:11)
--- NOTE | 2019-11-07 11:25 | PC.NURSE ---
0952-Called to room by blind slat stapling machine operator, Sundar. He notified me that the patient seemed different. Dr. Yepez at bedside as well as me and patient found to have no pulse. Ultrasound used to verify. No heartbeat present. Pt. is a DNR status. Family called and updated on patient's expiration.
--- NOTE | 2019-11-07 11:41 | PM.DDS ---
Discharge Sum: Prov Provider Primary care physician: Coleman Hamilton DO Admitting provider: Joselin Huerta DO Consults: 10/24/19 14:58 Consult to Physician Routine Comment: Consulting Provider: Cj Torres callisthenics instructor/MD group to consult: surgery Reason for consultation: acute cholecystitis Has provider been notified: Yes 10/26/19 Consult to Physician Routine Comment: Spoke with Dr Sheets @ 2203 (,[place]) Consulting Provider: Jonny Sheets callisthenics instructor/MD group to consult: Nephrology Reason for consultation: GUSTABO Has provider been notified: Yes 10/27/19 Consult to Physician Routine Comment: 10/26 OFFICE NOTIFIED @ 1110 (,[place]) Consulting Provider: Jonny Sheets callisthenics instructor/MD group to consult: NEPOHROLOGY Reason for consultation: HYPONATREMIA and GUSTABO Has provider been notified: Yes 10/28/19 Consult to Physician Routine Comment: Spoke with Dr Baldwin @ 1105 (,[place]) Consulting Provider: Talya Baldwin Reason for consultation: increased labored breathing Has provider been notified: Yes 10/30/19 23:37 Consult to Physician Routine Comment: Consulting Provider: Angelai Yepez callisthenics instructor/MD group to consult: Dr. yepez Reason for consultation: ICU transfer Has provider been notified: Yes Discharge Sum: Summary Date and Time Date of admission: 10/23/19 10:07 Date of : 12/08/19 Time of : 09:55 Summary Details: 85-year-old male status post cholecystectomy on 10/25/2019 chronic kidney disease stage 3 patient developed hypoxia and was emergently intubated, most likely secondary to volume overload as patient was hydrated for acute kidney injury not requiring dialysis, also possibly due to hypoventilation due to morbid obesity, remains intubated, patient seen by automotive glass technician had a emergent dialysis yesterday however there is no significant improvement in oxygenation as patient is requiring 100%, patient had dialysis and 3 L was removed on 11/01 and 11/02 there is no significant change and patient's respiratory status, patient is seen by automotive glass technician, patien had another dialysis on 11/04, today patient has a fever worsening leukocytosis, blood culture and sputum culture is ordered, UA shows pyuria, Mello is removed, and dialysis catheter is removed patient is being treated vancomycin cefepime and Flagyl, patient may need trach and couple of days if not been weaned off ventilator, seen by pulmonology recommending to dc Flolan it is not helping improved patient respiratory status, patient seen by theater company producer, On 11/07/2019 patient had VFib arrest followed by PEA arrest after dialysis was started, patient was DNR and seen by theater company producer no interveniton was carried out as patient was DNR and pronouced at 09:55 Additional Data Confirmation of as documented by pronouncing clinician: no pulse, no respirations, no heart sounds and pupils fixed and dilated Family: contacted Additional persons at bedside: criminal justice social worker Attending/PCP notified?: Yes Attending physician: Kinjal Langley, PAC Was code activated?: No Autopsy requested?: No can line examiner notified?: Yes Organ bank notified?: No Advance directives: Yes Hospice patient?: No
--- NOTE | 2019-11-07 13:30 | WPDINTPN ---
Progress Note: A&P Assessment and Plan (1) Acute respiratory failure: Qualifiers: Respiratory failure complication: hypercapnia Qualified Code(s): J96.02 - Acute respiratory failure with hypercapnia Code(s): J96.00 - Acute respiratory failure, unspecified whether with hypoxia or hypercapnia Status: Acute Assessment and Plan: Multifactorial - related to volume overload from acute on chronic kidney disease, possible pneumonia, as well as probable underlying SOPHY and OHS. He was intubated on 10/30/2019. Remains on AC 450x22, FiO2 0.9, PEEP 10. Continue empiric vancomycin, cefepime and Flagyl, - sputum culture with Klebsiella pneumoniae and Citrobacter freundii, sensitive to cefepime. - Patient on fentanyl at 50mcg/hr and Versed 3mg/hr infusion for sedation, maintain RASS of 0 to -2, daily sedation vacation. - Continue bronchodilators. - status post Flolan - Continue dialysis with aggressive removal. - patient had VFib arrest followed by PEA arrest after dialysis was started this morning, patient was a DNR so no intervention was (2) GUSTABO (acute kidney injury): Code(s): N17.9 - Acute kidney failure, unspecified Status: Acute Assessment and Plan: Patient with history of chronic kidney disease stage 3, now with acute kidney injury requiring dialysis. Dialysis catheter was placed in the right femoral vein on 10/28, not functioning well, surgery inserted a new dialysis catheter in the left IJ on 10/31/2019, also not functioning well and RIJ CVC was changed over guidewire for new HD catheter 11/04. However, LIJ still appears functional. Remove R femoral catheter today. HD per Nephrology. (3) Acute cholecystitis: Code(s): K81.0 - Acute cholecystitis Status: Acute Assessment and Plan: Patient presented on 10/23/2019 with acute cholecystitis, status post laparoscopic cholecystectomy on 10/25/2019. (4) Hyponatremia: Code(s): E87.1 - Hypo-osmolality and hyponatremia Status: Acute Assessment and Plan: Likely related to hypervolemic hyponatremia, improving. (5) Diabetes mellitus: Qualifiers: Diabetes mellitus type: type 2 Diabetes mellitus intermediate insulin use: with ocean transportation intermediary use Diabetes mellitus complication status: with other specified complication Qualified Code(s): E11.69 - Type 2 diabetes mellitus with other specified complication; Z79.4 - terminologist (current) use of insulin Code(s): E11.9 - Type 2 diabetes mellitus without complications Status: Acute Assessment and Plan: Uncontrolled this AM with Lantus and SSI. Increase Lantus dose. (6) DVT prophylaxis: Code(s): Z29.9 - Encounter for prophylactic measures, unspecified Status: Acute Assessment and Plan: Continue SC heparin. (7) Shock: Code(s): R57.9 - Shock, unspecified Status: Acute Assessment and Plan: Suspect related to sepsis and sedation meds. Wean off Levophed as tolerated. (8) Fever: Code(s): R50.9 - Fever, unspecified Status: Acute Assessment and Plan: With worsening leukocytosis today. New blood cultures, UA, and sputum culture ordered. UA shows pyuria - will remove Mello today. Remove R femoral HD catheter. Continue vancomycin, cefepime, and Flagyl. Venous dopplers from 10/22 were negative, consider repeating. Additional Plan discussed with , son, daughter at bedside updated them the cause of and the sequence of events that precluded Code status: DNR Critical care time spent: 39 minutes Due to a high probability of clinically significant, life threatening deterioration, the patient required my highest level of preparedness to intervene emergently and I personally spent this critical care time directly and personally managing the patient. This critical care time included obtaining a history; examining the patient; pulse oximetry; ordering and review of studies; arranging urgent treatment
== END 2019-11-07 12:17 | disposition expired | DRG 417 ==
LOC: ANHED 00:48 → ANH3MEDSUR 04:34 → ANH2MED 10-28 19:28 → ANHIMU 10-30 14:49 → ANHICU 10-31 03:41 → ANH2MED 11-08 13:20 → ANH3MEDSUR 11-08 13:20 → ANHICU 11-08 13:20 → ANHIMU 11-08 13:20
PROVIDERS: Family Medicine; Hospitalist; Internal Medicine; Internal Medicine Critical Care Medicine; Internal Medicine Nephrology; Physician Assistant; Surgery; Admitting Provider Internal Medicine; Emergency Provider Emergency Medicine; PCP Internal Medicine; Visit Provider Physician Assistant
PROC: 0FT44ZZ Resection of Gallbladder, Percutaneous Endoscopic Approach (ICD-10-PCS; CPT 47562; principal; 2019-10-25 10:30)
DX: K81.0 Acute cholecystitis (principal); N17.0 Acute kidney failure with tubular necrosis; J96.01 Acute respiratory failure with hypoxia; J96.02 Acute respiratory failure with hypercapnia; A41.9 Sepsis, unspecified organism; R65.21 Severe sepsis with septic shock; J15.0 Pneumonia due to Klebsiella pneumoniae; E66.2 Morbid (severe) obesity with alveolar hypoventilation; E87.1 Hypo-osmolality and hyponatremia; E11.42 Type 2 diabetes mellitus with diabetic polyneuropathy; Z87.891 Personal history of nicotine dependence; Z68.38 Body mass index [BMI] 38.0-38.9, adult; E78.5 Hyperlipidemia, unspecified; I12.9 Hypertensive chronic kidney disease with stage 1 through stage 4 chronic kidney disease, or unspecified chronic kidney disease; N18.3 Chronic kidney disease, stage 3 (moderate); K42.9 Umbilical hernia without obstruction or gangrene; K82.A1 Gangrene of gallbladder in cholecystitis; Z79.4 Long term (current) use of insulin; E11.21 Type 2 diabetes mellitus with diabetic nephropathy; M10.9 Gout, unspecified; M19.019 Primary osteoarthritis, unspecified shoulder; Z20.828 Contact with and (suspected) exposure to other viral communicable diseases
CPT/HCPCS: 31500; 36415; 36600; 71045; 71046; 71275; 72170; 74018; 74177; 76705; 76775; 78226; 80048; 80053; 80069; 80074; 80076; 80202; 81001; 82375; 82436; 82570; 82805; 83050; 83690; 83735; 83880; 83930; 83935; 84100; 84295; 84300; 84443; 84484; 85025; 85027; 85380; 85610; 85730; 85999; 86706; 86850; 86900; 86901; 87040; 87070; 87077; 87086; 87186; 87205; 87635; 88304; 93005; 93306; 93970; 93971; 94002; 94003; 94640; 96374; 96375; 96376; 97161; 97165; 99285; C1752; A9270; A9537; C1751; C8929; C9113; C9803; G0257; G0378; J0692; J1642; J1644; J1815; J1940; J2060; J2250; J2270; J2370; J2405; J2543; J2704; J2765; J2920; J2930; J3010; J3370; J3475; J7030; J7040; J7070; J7120; P9047; Q9957; Q9967; U0003